=== PATIENT | female | born 1940 | race Caucasian/White ===

== ENCOUNTER 2018-01-22 03:04 | Emergency (ER) | payer OTHER ==
[2018-01-22] MEDS ORDERED: KETOROLAC 30 MG/ML INJ ONE (03:42)
[2018-01-22] MEDS ORDERED: METOCLOPRAMIDE 10 MG/2mL INJ ONE (03:42)
[2018-01-22] MEDS ORDERED: NA CHLORIDE 0.9% 500 ML ONE (03:42)
--- NOTE | 2018-01-22 04:22 | EDPHYS ---
Physician Documentation [facility] Name: Igor Greco Age: 77 yrs Sex: Female : 1940 Arrival Date: 01/22/2018 Time: 03:06 Bed 5 Private MD: ED Physician Dimas Jenkins HPI: 01/22 03:20 This 77 yrs old Female presents to ER via Unassigned with complaints of rn Headache. 03:20 The patient complains of pain to the top of head. The patient describes the headache as rn aching. Onset: The symptoms/episode began/occurred yesterday. Associated signs and symptoms: Pertinent positives: nausea, Pertinent negatives: altered mental status, fever, neck stiffness, vision loss. Severity of symptoms: At its worst the pain was moderate, in the emergency department the pain is unchanged. Headache History: The patient has had previous headaches and this one is similar to previous episodes. The symptoms are alleviated by nothing. the symptoms are aggravated by nothing. The patient has experienced similar episodes in the past. Reports frequent headaches for years, used to come in frequently but not since "new ER", reports 1 day of headache, similar to previous headaches, no medication at home, came in not because it was worse than normal, just didn't go away. . Historical: - Allergies: 03:31 Biaxin; rr5 03:34 Morphine (Vomiting); lp1 - Home Meds: 03:31 clonazepam 1 mg Oral tab 1 tab 3 times per day [Active]; docusate sodium 100 mg Oral rr5 tab 2 tabs once daily [Active]; pravastatin 20 mg Oral tab 1 tab once daily [Active]; trazodone 50 mg Oral tab 2 tabs daily [Active]; Myrbetriq 25 mg Oral Tb24 1 tab once daily [Active]; fluoxetine 20 mg Oral cap 2 caps once daily [Active]; - PMHx: 03:31 Depression; Migraines; macular degeneration; rr5 - PSHx: 03:31 tonsilectomy; sinus surgery; Bladder suspension; right hip surgery; rr5 - Immunization history:: Adult Immunizations up to date, Flu vaccine is up to date. - Social history:: Smoking status: Patient/guardian denies using tobacco, Patient/guardian denies using alcohol, street drugs. - Family history:: not pertinent. - Ebola Screening: : Patient negative for fever greater than or equal to 101.5 degrees Fahrenheit, and additional compatible Ebola Virus Disease symptoms Patient denies exposure to infectious person Patient denies travel to an Ebola-affected area in the 21 days before illness onset. - Hospitalizations: : No recent hospitalization is reported. ROS: 03:20 Constitutional: Negative for fever, chills, and weight loss, Eyes: Negative for injury, rn pain, redness, and discharge, Neck: Negative for injury, pain, and swelling, Cardiovascular: Negative for chest pain, palpitations, and edema, Respiratory: Negative for shortness of breath, cough, wheezing, and pleuritic chest pain, Abdomen/GI: Negative for abdominal pain, vomiting, diarrhea, and constipation, MS/Extremity: Negative for injury and deformity, Skin: Negative for injury, rash, and discoloration, Neuro: Negative for weakness, numbness, tingling, and seizure. Exam: 03:20 Constitutional: This is a well developed, well nourished patient who is awake, alert, rn and in no acute distress. Walked to room without assistance Head/Face: Normocephalic, atraumatic. Eyes: Pupils equal round and reactive to light, extra-ocular motions intact. Lids and lashes normal. Conjunctiva and sclera are non-icteric and not injected. Cornea within normal limits. Periorbital areas with no swelling, redness, or edema. Neck: Supple, full range of motion without nuchal rigidity, or vertebral point tenderness. No Meningismus. Skin: Warm, dry with normal turgor. Normal color with no rashes, no lesions, and no evidence of cellulitis. MS/ Extremity: Pulses equal, no cyanosis. Neurovascular intact. Full, normal range of motion. Equal circumference. Neuro: Awake and alert, GCS 15, oriented to person, place, time, and situation. Cranial nerves II-XII grossly intact. Motor strength 5/5 in all extremities. Sensory grossly intact. Cerebellar exam normal. Normal gait. Vital Signs: 03:20 BP 153 / 98; Pulse 93; Resp 18; Pulse Ox 97% on R/A; Weight 50.8 kg; Height 5 ft. 5 in. rr5 (165.10 cm); Pain 7/10; 04:18 BP 146 / 81; Pulse 79; Resp 17; Pulse Ox 98% on R/A; rr5 04:28 BP 134 / 88; Pulse 79; Resp 18; Pulse Ox 98% on R/A; rr5 03:20 Body Mass Index 18.64 (50.80 kg, 165.10 cm) rr5 [place] Coma Score: 04:20 Eye Response: spontaneous(4). Verbal Response: oriented(5). Motor Response: obeys rn commands(6). Total: 15. MDM: 03:08 Patient medically screened. rn 04:20 Differential diagnosis: migraine, tension headache, vasomotor headache. Data reviewed: rn vital signs, nurses notes, and as a result, I will discharge patient. Counseling: I had a detailed discussion with the patient and/or guardian regarding: the historical points, exam findings, and any diagnostic results supporting the discharge/admit diagnosis, the need for outpatient follow up, to return to the emergency department if symptoms worsen or persist or if there are any questions or concerns that arise at home. Response to treatment: the patient's symptoms have markedly improved after treatment, the patient's condition has returned to base line, and as a result, I will discharge patient. Special discussion: I discussed with the patient/guardian in detail that at this point there is no indication for admission to the hospital. It is understood, however, that if the symptoms persist or worsen the patient needs to return immediately for re-evaluation. 04:20 ED course: Pain resolved, sleeping, to drive her home, is thankful. . rn 01/22 03:20 Order name: IV Start; Complete Time: 03:29 rn Administered Medications: 03:35 Drug: Reglan 10 mg Route: IVP; Site: right forearm; rr5 04:30 Follow up: Response: No adverse reaction; Marked relief of symptoms rr5 03:39 Drug: TORadol 30 mg Route: IVP; Site: right forearm; rr5 04:30 Follow up: Response: Marked relief of symptoms rr5 03:42 Drug: NS 0.9% 500 ml Route: IV; Rate: bolus; Site: right forearm; rr5 04:30 Follow up: Response: No adverse reaction; IV Status: Completed infusion; IV Intake: rr5 500ml Disposition: 01/22/18 04:21 Discharged to Home. Impression: Headache. - Condition is Stable. - Discharge Instructions: General Headache Without Cause. - Medication Reconciliation Form, Thank You Letter, Antibiotic Education, Prescription Opioid Use form. - Follow up: Private Physician; When: As needed; Reason: Recheck today's complaints, Re-evaluation by your physician. - Problem is new. - Symptoms have improved. Signatures: Dimas Jenkins MD MD rn Pena, Laura RN RN lp1 Ga Michael RN RN rr5 Corrections: (The following items were deleted from the chart) 04:32 04:21 01/22/2018 04:21 Discharged to Home. Impression: Headache. Condition is Stable. rr5 Forms are Medication Reconciliation Form, Thank You Letter, Antibiotic Education, Prescription Opioid Use. Follow up: Private Physician; When: As needed; Reason: Recheck today's complaints, Re-evaluation by your physician. Problem is new. Symptoms have improved. rn
--- NOTE | 2018-01-22 04:22 | ER ---
Nurse's Notes [facility] Name: Igor Greco Age: 77 yrs Sex: Female : 1940 Arrival Date: 01/22/2018 Time: 03:06 Bed 5 Private MD: Diagnosis: Headache Presentation: 01/22 03:20 Presenting complaint: Patient states: pain at frontal area radiates to right temporal rr5 area. aching pain score of 7/10. took excedrin and ibuprofen tablet unrelieved from pain. vomited 1x as claimed. denies numbness, slurring of speech. 03:20 Method Of Arrival: Ambulatory rr5 03:20 Transition of care: patient was not received from another setting of care. Onset of rr5 symptoms was January 21, 2018. Risk Assessment: Do you want to hurt yourself or someone else? Patient reports no desire to harm self or others. Initial Sepsis Screen: Does the patient meet any 2 criteria? No. Patient's initial sepsis screen is negative. Does the patient have a suspected source of infection? No. Patient's initial sepsis screen is negative. Care prior to arrival: None. Activity prior to arrival: None. 03:20 Acuity: TROY 3 rr5 Triage Assessment: 03:20 Headache History: The patient has had previous headaches and this one is different than rr5 previous episodes. 03:20 General: Appears in no apparent distress. comfortable, Behavior is calm, cooperative, rr5 appropriate for age, Reports head ache. Pain: Complains of pain in top of head Pain radiates to right temporal area Pain currently is 7 out of 10 on a pain scale. Quality of pain is described as aching, Pain began gradually, Is continuous, Also complains of nausea, sleeplessness, Current management is with toradol and reglan. EENT: No signs and/or symptoms were reported regarding the EENT system. 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 Full function Speech is normal, Facial symmetry appears normal. Cardiovascular: Capillary refill < 3 seconds Patient's skin is warm and dry. Respiratory: Airway is patent Respiratory effort is even, unlabored, Respiratory pattern is regular, symmetrical. GI: Reports nausea, vomiting. : No signs and/or symptoms were reported regarding the genitourinary system. Derm: No signs and/or symptoms reported regarding the dermatologic system. Musculoskeletal: No signs and/or symptoms reported regarding the musculoskeletal system. Historical: - Allergies: 03:31 Biaxin; rr5 03:34 Morphine (Vomiting); lp1 - Home Meds: 03:31 clonazepam 1 mg Oral tab 1 tab 3 times per day [Active]; docusate sodium 100 mg Oral rr5 tab 2 tabs once daily [Active]; pravastatin 20 mg Oral tab 1 tab once daily [Active]; trazodone 50 mg Oral tab 2 tabs daily [Active]; Myrbetriq 25 mg Oral Tb24 1 tab once daily [Active]; fluoxetine 20 mg Oral cap 2 caps once daily [Active]; - PMHx: 03:31 Depression; Migraines; macular degeneration; rr5 - PSHx: 03:31 tonsilectomy; sinus surgery; Bladder suspension; right hip surgery; rr5 - Immunization history:: Adult Immunizations up to date, Flu vaccine is up to date. - Social history:: Smoking status: Patient/guardian denies using tobacco, Patient/guardian denies using alcohol, street drugs. - Family history:: not pertinent. - Ebola Screening: : Patient negative for fever greater than or equal to 101.5 degrees Fahrenheit, and additional compatible Ebola Virus Disease symptoms Patient denies exposure to infectious person Patient denies travel to an Ebola-affected area in the 21 days before illness onset. - Hospitalizations: : No recent hospitalization is reported. Screenin:52 Abuse screen: Denies threats or abuse. Denies injuries from another. Nutritional rr5 screening: No deficits noted. Tuberculosis screening: No symptoms or risk factors identified. Fall Risk IV access (20 points). Total Paul Fall Scale indicates No Risk (0-24 pts). Assessment: 03:49 General: Appears in no apparent distress. comfortable, Behavior is calm, cooperative. rr5 Pain: Complains of pain in top of head Pain radiates to right temporalarea Pain currently is 7 out of 10 on a pain scale. Quality of pain is described as aching, Pain began gradually, Is continuous. Neuro: Level of Consciousness is awake, alert, Oriented to person, place, time, situation, Appropriate for age. Cardiovascular: Capillary refill < 3 seconds Patient's skin is warm and dry. Respiratory: Airway is patent Respiratory effort is even, unlabored, Respiratory pattern is regular, symmetrical. GI: No signs and/or symptoms were reported involving the gastrointestinal system. GI: Reports nausea, vomiting. : No signs and/or symptoms were reported regarding the genitourinary system. : No signs and/or symptoms were reported regarding the genitourinary system. EENT: No signs and/or symptoms were reported regarding the EENT system. Derm: No signs and/or symptoms reported regarding the dermatologic system. Musculoskeletal: No signs and/or symptoms reported regarding the musculoskeletal system. 04:19 Reassessment: Patient appears in no apparent distress at this time. asleep comfortably rr5 on bed. Patient states symptoms have improved. 04:29 Reassessment: Patient appears in no apparent distress at this time. reexamined by dr. sonia jenkins. no complaints made. explained discharge instruction. Vital Signs: 03:20 BP 153 / 98; Pulse 93; Resp 18; Pulse Ox 97% on R/A; Weight 50.8 kg; Height 5 ft. 5 in. rr5 (165.10 cm); Pain 7/10; 04:18 BP 146 / 81; Pulse 79; Resp 17; Pulse Ox 98% on R/A; rr5 04:28 BP 134 / 88; Pulse 79; Resp 18; Pulse Ox 98% on R/A; rr5 03:20 Body Mass Index 18.64 (50.80 kg, 165.10 cm) rr5 [place] Coma Score: 04:20 Eye Response: spontaneous(4). Verbal Response: oriented(5). Motor Response: obeys rn commands(6). Total: 15. ED Course: 03:06 Patient arrived in ED. ag3 03:08 Dimas Jenkins MD is Attending Physician. rn 03:20 Arm band placed on left wrist. rr5 03:21 Ga Michael, JENNIFER is Primary Nurse. rr5 03:25 Inserted saline lock: 22 gauge in right wrist, using aseptic technique. ds4 03:27 Triage completed. rr5 03:52 No provider procedures requiring assistance completed. rr5 03:52 Patient has correct armband on for positive identification. Bed in low position. Call rr5 light in reach. Side rails up X 1. 04:30 IV discontinued, intact, bleeding controlled, No redness/swelling at site. Pressure rr5 dressing applied. Administered Medications: 03:35 Drug: Reglan 10 mg Route: IVP; Site: right forearm; rr5 04:30 Follow up: Response: No adverse reaction; Marked relief of symptoms rr5 03:39 Drug: TORadol 30 mg Route: IVP; Site: right forearm; rr5 04:30 Follow up: Response: Marked relief of symptoms rr5 03:42 Drug: NS 0.9% 500 ml Route: IV; Rate: bolus; Site: right forearm; rr5 04:30 Follow up: Response: No adverse reaction; IV Status: Completed infusion; IV Intake: rr5 500ml Intake: 04:30 IV: 500ml; Total: 500ml. rr5 Outcome: 04:21 Discharge ordered by . rn 04:30 Discharged to home ambulatory. rr5 04:30 Condition: stable 04:30 Discharge instructions given to patient, Instructed on discharge instructions, follow up and referral plans. Demonstrated understanding of instructions, follow-up care. 04:32 Patient left the ED. rr5 Signatures: Dimas Jenkins MD MD rn Pena, Laura RN RN lp1 Justin Bolden ds4 Audrey Herring ag3 Ga Michael, RN RN rr5 Corrections: (The following items were deleted from the chart) 04:32 04:29 Reassessment: Patient appears in no apparent distress at this time. reexamined by rr5 dr. jenkins. no complaints made. explained discharge instruction and prescription. rr5
[2018-01-22 04:38] VITALS: O2SAT 98
[2018-01-22 04:39] VITALS: BP 134/88
== END 2018-01-22 04:32 | disposition home or self-care (01) ==
LOC: ER 03:04
DX: R51 Headache (principal); F32.9 Major depressive disorder, single episode, unspecified; Z79.899 Other long term (current) drug therapy
CPT/HCPCS: 96361; 96374; 96375; 99283; J2765

== ENCOUNTER 2018-06-18 16:35 | Emergency (ER) | payer OTHER ==
--- OUTSIDE RECORDS SUMMARY | 2018-06-18 16:38 | XMS REPORT ---
:1940 [facility] Address [address] [place] [address] Dr. Delgado. [address] [place] [id number] Care Team Providers Name Role Phone Unavailable Unavailable Unavailable Problems This patient has no known problems. Allergies, Adverse Reactions, Alerts This patient has no known allergies or adverse reactions. Medications This patient has no known medications.
[2018-06-18] MEDS ORDERED: LORAZEPAM 1 MG TABLET ONE (18:09)
--- NOTE | 2018-06-18 18:27 | ER ---
Nurse's Notes [facility] Name: Igor Greco Age: 78 yrs Sex: Female : 1940 Arrival Date: 06/18/2018 Time: 16:38 Bed 7 Private MD: Landry Trotter F Diagnosis: Anxiety disorder, unspecified Presentation: 06/18 16:56 Presenting complaint: Patient states: "My new psychiatrist is trying to wean me off my hb clonazepam and i am feeling like I am having a panic attack.". Transition of care: patient was not received from another setting of care. Onset of symptoms was June 18, 2018. Risk Assessment: Do you want to hurt yourself or someone else? Patient reports no desire to harm self or others. Care prior to arrival: None. 16:56 Method Of Arrival: Ambulatory hb 16:56 Acuity: TROY 3 hb 18:24 Initial Sepsis Screen: Does the patient meet any 2 criteria? No. Patient's initial ph sepsis screen is negative. Does the patient have a suspected source of infection? No. Patient's initial sepsis screen is negative. Historical: - Allergies: 16:57 Biaxin; hb 16:57 Morphine (Vomiting); hb - Home Meds: 16:57 clonazepam 1 mg Oral tab 1 tab 3 times per day [Active]; docusate sodium 100 mg Oral hb tab 2 tabs once daily [Active]; fluoxetine 20 mg Oral cap 2 caps once daily [Active]; Myrbetriq 25 mg Oral Tb24 1 tab once daily [Active]; pravastatin 20 mg Oral tab 1 tab once daily [Active]; trazodone 50 mg Oral tab 2 tabs daily [Active]; - PMHx: 16:57 Depression; macular degeneration; Migraines; hb - PSHx: 16:57 tonsilectomy; sinus surgery; Bladder suspension; right hip surgery; hb - Immunization history:: Adult Immunizations up to date. - Social history:: Smoking status: Patient/guardian denies using tobacco. - Ebola Screening: : No symptoms or risks identified at this time. Screenin:24 Abuse screen: Denies threats or abuse. Denies injuries from another. Nutritional ph screening: No deficits noted. Tuberculosis screening: No symptoms or risk factors identified. Fall Risk None identified. Assessment: 17:30 General: Appears in no apparent distress. comfortable, slender, well groomed, Behavior ph is calm, cooperative, appropriate for age, Reports "feeling anxious". Pain: Denies pain. Neuro: Level of Consciousness is awake, alert, obeys commands, Oriented to person, place, time, situation. Cardiovascular: Capillary refill < 3 seconds in bilateral fingers Patient's skin is warm and dry. Respiratory: Airway is patent Respiratory effort is even, unlabored, Respiratory pattern is regular, symmetrical. GI: No signs and/or symptoms were reported involving the gastrointestinal system. Derm: Skin is intact, is healthy with good turgor, Skin is pink, warm \\T\\ dry. Musculoskeletal: Circulation, motion, and sensation intact. Range of motion: intact in all extremities. 18:44 Reassessment: Patient appears in no apparent distress at this time. Patient and/or ph family updated on plan of care and expected duration. Pain level reassessed. Patient is alert, oriented x 3, equal unlabored respirations, skin warm/dry/pink. Pt reports that anxiety has decreased after PO medication, pt d/c home w/ prescription. Vital Signs: 16:55 BP 128 / 91; Pulse 92; Resp 16; Temp 98.2; Pulse Ox 98% on R/A; Pain 0/10; hb 18:46 BP 117 / 87; Pulse 87; Resp 18; Temp 97.8; Pulse Ox 99% on R/A; ph ED Course: 16:38 Patient arrived in ED. mr 16:38 Landry Trotter MD is Private Physician. mr 16:56 Triage completed. hb 16:56 Arm band placed on. hb 17:07 Juan Carlos Cuellar NP is PHCP. pm1 17:07 Sudarshan Alfaro MD is Attending Physician. pm1 17:30 Michelle Lai, RN is Primary Nurse. ph 18:24 Patient has correct armband on for positive identification. Bed in low position. Call ph light in reach. Side rails up X 1. Pulse ox on. NIBP on. Pillow given. 18:25 Patient did not have IV access during this emergency room visit. ph 18:26 No provider procedures requiring assistance completed. ph Administered Medications: 18:00 Drug: Ativan 1 mg Route: PO; ph 18:43 Follow up: Response: No adverse reaction; Anxiety decreased ph Outcome: 18:27 Discharge ordered by . pm1 18:48 Discharged to home ambulatory, with family. ph 18:48 Condition: good 18:48 Discharge instructions given to patient, Instructed on discharge instructions, follow up and referral plans. medication usage, Demonstrated understanding of instructions, follow-up care, medications, Prescriptions given X 1. 18:49 Patient left the ED. ph Signatures: Kaci Tristan mr Michelle Lai RN RN ph Juan Carlos Cuellar NP [employer]ANT ATTENDANT pm1 Deanna Hankins RN RN hb
--- NOTE | 2018-06-18 18:27 | EDPHYS ---
Physician Documentation [facility] Name: Igor Greco Age: 78 yrs Sex: Female : 1940 Arrival Date: 06/18/2018 Time: 16:38 Bed 7 Private MD: Landry Trotter F ED Physician Sudarshan Alfaro HPI: 06/18 17:29 This 78 yrs old Female presents to ER via Ambulatory with complaints of pm1 Anxiety. 17:29 The patient presents to the emergency department with anxiety. Onset: The pm1 symptoms/episode began/occurred 1 month(s) ago. Past psychiatric history: Prior diagnosis: Anxiety and depression, Psychiatric medications include: hydroxyzine and clonazepam, Primary psychiatric physician: Dr. Campbell. Associated signs and symptoms: Pertinent positives; anxiety, Pertinent negatives: abdominal pain, chest pain, fever, headache, homicidal ideation, shortness of breath, suicide ideation. Severity of symptoms: in the emergency department the symptoms are worse Pain is currently a 0 / 10. Patient changed psychiatrist recently and the new psychiatrist believes that she is on too much medications. She wanted to wean the patient off her clonazepam. For the past month the patient has been feeling anxious since her doctor made that decision. Patient has bee recently diagnosed with macular degeneration so that might be contributing to her anxiety. The patient contacted her psychiatrist yesterday and she was instructed to take hydroxyzine. The medication worked last night but it did not help this AM. Historical: - Allergies: 16:57 Biaxin; hb 16:57 Morphine (Vomiting); hb - Home Meds: 16:57 clonazepam 1 mg Oral tab 1 tab 3 times per day [Active]; docusate sodium 100 mg Oral hb tab 2 tabs once daily [Active]; fluoxetine 20 mg Oral cap 2 caps once daily [Active]; Myrbetriq 25 mg Oral Tb24 1 tab once daily [Active]; pravastatin 20 mg Oral tab 1 tab once daily [Active]; trazodone 50 mg Oral tab 2 tabs daily [Active]; - PMHx: 16:57 Depression; macular degeneration; Migraines; hb - PSHx: 16:57 tonsilectomy; sinus surgery; Bladder suspension; right hip surgery; hb - Immunization history:: Adult Immunizations up to date. - Social history:: Smoking status: Patient/guardian denies using tobacco. - Ebola Screening: : No symptoms or risks identified at this time. ROS: 17:29 Constitutional: Negative for fever, chills, and weight loss, Eyes: Negative for injury, pm1 pain, redness, and discharge, ENT: Negative for injury, pain, and discharge, Neck: Negative for injury, pain, and swelling, Cardiovascular: Negative for chest pain, palpitations, and edema, Respiratory: Negative for shortness of breath, cough, wheezing, and pleuritic chest pain, Abdomen/GI: Negative for abdominal pain, nausea, vomiting, diarrhea, and constipation, Back: Negative for injury and pain, : Negative for injury, bleeding, discharge, and swelling, MS/Extremity: Negative for injury and deformity, Skin: Negative for injury, rash, and discoloration, Neuro: Negative for headache, weakness, numbness, tingling, and seizure. 17:29 Psych: Positive for anxiety, Negative for depression, auditory hallucinations, visual hallucinations, homicidal ideation, suicide gesture, suicidal ideation. Exam: 17:29 Constitutional: This is a well developed, well nourished patient who is awake, alert, pm1 and in no acute distress. Head/Face: Normocephalic, atraumatic. Eyes: Pupils equal round and reactive to light, extra-ocular motions intact. Lids and lashes normal. Conjunctiva and sclera are non-icteric and not injected. Cornea within normal limits. Periorbital areas with no swelling, redness, or edema. ENT: Nares patent. No nasal discharge, no septal abnormalities noted. Tympanic membranes are normal and external auditory canals are clear. Oropharynx with no redness, swelling, or masses, exudates, or evidence of obstruction, uvula midline. Mucous membranes moist. Neck: Trachea midline, no thyromegaly or masses palpated, and no cervical lymphadenopathy. Supple, full range of motion without nuchal rigidity, or vertebral point tenderness. No Meningismus. Chest/axilla: Normal chest wall appearance and motion. Nontender with no deformity. No lesions are appreciated. Cardiovascular: Regular rate and rhythm with a normal S1 and S2. No gallops, murmurs, or rubs. Normal PMI, no JVD. No pulse deficits. Respiratory: Lungs have equal breath sounds bilaterally, clear to auscultation and percussion. No rales, rhonchi or wheezes noted. No increased work of breathing, no retractions or nasal flaring. Abdomen/GI: Soft, non-tender, with normal bowel sounds. No distension or tympany. No guarding or rebound. No evidence of tenderness throughout. Back: No spinal tenderness. No costovertebral tenderness. Full range of motion. Skin: Warm, dry with normal turgor. Normal color with no rashes, no lesions, and no evidence of cellulitis. MS/ Extremity: Pulses equal, no cyanosis. Neurovascular intact. Full, normal range of motion. 17:29 Neuro: Orientation: is normal, Motor: is normal, moves all fours, Sensation: is normal, no obvious gross deficits, Gait: is steady, at a normal pace, without difficulty. Vital Signs: 16:55 BP 128 / 91; Pulse 92; Resp 16; Temp 98.2; Pulse Ox 98% on R/A; Pain 0/10; hb 18:46 BP 117 / 87; Pulse 87; Resp 18; Temp 97.8; Pulse Ox 99% on R/A; ph MDM: 17:29 Patient medically screened. pm1 17:29 Refusal of service: The patient/guardian displays adequate decision making capability pm1 and despite a detailed discussion of alternatives, benefits, risks, and consequences refuses: all lab tests, all X-rays, ECG and urinalysis. Patient does not want a cardiac work up because she has been feeling the same exact way for the past 1 month since her psychiatrist has decided to wean her off clonazepam. Patient just wants some medication here for the anxiety and a prescription. 18:24 Data reviewed: vital signs. Data interpreted: Pulse oximetry: on room air is 98 %. pm1 Interpretation: normal. Counseling: I had a detailed discussion with the patient and/or guardian regarding: the historical points, exam findings, and any diagnostic results supporting the discharge/admit diagnosis, the need for outpatient follow up, for definitive care, a psychiatrist, to return to the emergency department if symptoms worsen or persist or if there are any questions or concerns that arise at home, patient is feeling better and requested to go home now. Administered Medications: 18:00 Drug: Ativan 1 mg Route: PO; ph 18:43 Follow up: Response: No adverse reaction; Anxiety decreased ph Disposition: 06/18/18 18:27 Discharged to Home. Impression: Anxiety disorder, unspecified. - Condition is Stable. - Discharge Instructions: Panic Attacks, Generalized Anxiety Disorder. - Prescriptions for Ativan 0.5 mg Oral Tablet - take 1 tablet by ORAL route every 8 hours As needed; 10 tablet. - Medication Reconciliation Form, Thank You Letter, Antibiotic Education, Prescription Opioid Use form. - Follow up: Emergency Department; When: As needed; Reason: Worsening of condition. Follow up: Private Physician; When: 2 - 3 days; Reason: Recheck today's complaints, Continuance of care, Re-evaluation by your physician. - Problem is new. - Symptoms have improved. Addendum: 06/20/2018 07:11 Co-signature as Attending Physician, Sudarshan Alfaro MD I agree with the assessment and k dr plan of care. Signatures: Sudarshan Alfaro MD MD [facility] Michelle Lai RN RN Juan Carlos Cuellar, [facility] pm1 Deanna Hankins RN RN Corrections: (The following items were deleted from the chart) 06/18 18:49 18:27 06/18/2018 18:27 Discharged to Home. Impression: Anxiety disorder, unspecified. ph Condition is Stable. Forms are Medication Reconciliation Form, Thank You Letter, Antibiotic Education, Prescription Opioid Use. Follow up: Emergency Department; When: As needed; Reason: Worsening of condition. Follow up: Private Physician; When: 2 - 3 days; Reason: Recheck today's complaints, Continuance of care, Re-evaluation by your physician. Problem is new. Symptoms have improved. pm1
[2018-06-18 18:58] VITALS: BP 117/87; TEMP 97.8; O2SAT 99
== END 2018-06-18 18:49 | disposition home or self-care (01) ==
LOC: ER 16:35
DX: F41.9 Anxiety disorder, unspecified (principal); F32.9 Major depressive disorder, single episode, unspecified
CPT/HCPCS: 99283

== ENCOUNTER 2018-06-21 19:04 | Emergency (ER) | payer OTHER ==
--- OUTSIDE RECORDS SUMMARY | 2018-06-21 19:06 | XMS REPORT ---
:1940 [facility] Address [address] [place] [address] [place] [id number] Care Team Providers Name Role Phone Unavailable Unavailable Unavailable Problems This patient has no known problems. Allergies, Adverse Reactions, Alerts This patient has no known allergies or adverse reactions. Medications This patient has no known medications.
[2018-06-21] MEDS ORDERED: DIAZEPAM 5 MG TABLET ONE (20:24)
[2018-06-21 20:47] LABS: Absolute Lymphocytes (CBC) 1.4 K/uL (0.7-4.9); Absolute Monocytes 0.5 K/uL (0.1-1.3); Absolute Neutrophil 5.1 K/uL (1.8-8.0); Basophils % 0.7 % (0-1.3); Hematocrit 37.5 % (36.0-45.0); Lymphocytes % 19.4 % (15.3-44.8); MPV 7.9 fL (7.6-11.3); Monocytes % 6.6 % (3.3-12.3); RBC Red Blood Cell Count 4.64 M/uL (3.86-4.86)
[2018-06-21 20:53] LABS: Albumin 3.6 g/dL (3.4-5.0); Bilirubin Direct 0.1 mg/dL (0-0.2); Bilirubin Total 0.4 mg/dL (0.2-1.0); Potassium 3.2 mmol/L (3.5-5.1); Protein, Total 6.7 g/dL (6.4-8.2)
--- NOTE | 2018-06-21 21:17 | ER ---
Nurse's Notes [facility] Name: Igor Greco Age: 78 yrs Sex: Female : 1940 Arrival Date: 06/21/2018 Time: 19:06 Bed 13 Private MD: Diagnosis: Anxiety disorder, unspecified Presentation: 06/21 19:19 Presenting complaint: Patient states: urinary retention and nausea X1. pt stated she is ak1 having "panic attacks". Transition of care: patient was not received from another setting of care. Onset of symptoms was June 21, 2018. Risk Assessment: Do you want to hurt yourself or someone else? Patient reports no desire to harm self or others. Care prior to arrival: None. 19:19 Method Of Arrival: Ambulatory ak1 19:19 Acuity: TROY 3 ak1 19:22 Note pt seen 06/18/18 for same s/s. ak1 20:24 Initial Sepsis Screen: Does the patient meet any 2 criteria? No. Patient's initial tl2 sepsis screen is negative. Does the patient have a suspected source of infection? No. Patient's initial sepsis screen is negative. Historical: - Allergies: 19:22 Morphine (Vomiting); ak1 19:22 Biaxin; ak1 - Home Meds: 19:22 clonazepam 0.5 mg oral tab 1 tab [Active]; fluoxetine 20 mg Oral cap 2 caps once daily ak1 [Active]; trazodone 50 mg Oral tab 2 tabs daily [Active]; pravastatin 20 mg Oral tab 1 tab once daily [Active]; docusate sodium 100 mg Oral tab 2 tabs once daily [Active]; Myrbetriq 25 mg Oral Tb24 1 tab once daily [Active]; hydroxyzine HCl 25 mg Oral tab 1 tab 3 times per day [Active]; Amitiza 8 mcg oral cap 1 cap 2 times per day [Active]; alendronate 70 mg oral tab 1 tab once wkly [Active]; - PMHx: 19:22 Depression; macular degeneration; Migraines; Anxiety; ak1 - PSHx: 19:22 tonsilectomy; sinus surgery; Bladder suspension; right hip surgery; ak1 - Immunization history:: Adult Immunizations unknown. - Social history:: Smoking status: Patient/guardian denies using tobacco. - Ebola Screening: : No symptoms or risks identified at this time. - Family history:: not pertinent. - Hospitalizations: : No recent hospitalization is reported. Screenin:23 Abuse screen: Denies threats or abuse. Nutritional screening: No deficits noted. tl2 Tuberculosis screening: No symptoms or risk factors identified. Fall Risk None identified. Assessment: 19:30 General: Appears in no apparent distress. comfortable, Behavior is cooperative, tl2 appropriate for age, anxious. Pain: Complains of pain in xyphoid area. Neuro: Level of Consciousness is awake, alert, obeys commands, Oriented to person, place, time, situation. Cardiovascular: Denies chest pain. Respiratory: Airway is patent Respiratory effort is even, unlabored, Respiratory pattern is regular, symmetrical. GI: Reports nausea. : Reports urinary retention. Derm: Skin is pink, warm \\T\\ dry. 20:30 Reassessment: pt has ambulated to restroom to urinate several times. Denies pain. tl2 21:50 Reassessment: Patient appears in no apparent distress at this time. Patient and/or tl2 family updated on plan of care and expected duration. Pain level reassessed. Patient is alert, oriented x 3, equal unlabored respirations, skin warm/dry/pink. will discharge after fluids are completed. 22:37 Reassessment: Patient appears in no apparent distress at this time. Patient and/or tl2 family updated on plan of care and expected duration. Pain level reassessed. Patient is alert, oriented x 3, equal unlabored respirations, skin warm/dry/pink. pt verbalized understanding of discharge instructions and need for follow up. Vital Signs: 19:22 BP 122 / 85; Pulse 100; Resp 18; Temp 98.1(TE); Pulse Ox 95% on R/A; Weight 52.16 kg ak1 (R); Height 5 ft. 4 in. (162.56 cm) (R); Pain 0/10; 20:24 BP 117 / 69; Pulse 88; Resp 18; Pulse Ox 98% on R/A; tl2 21:53 BP 118 / 69; Pulse 88; Resp 18; Temp 98.7(O); Pulse Ox 98% ; tl2 19:22 Body Mass Index 19.74 (52.16 kg, 162.56 cm) ak1 ED Course: 19:06 Patient arrived in ED. as 19:19 Triage completed. ak1 19:22 Arm band placed on Patient placed in an exam room, on a stretcher, Patient notified of ak1 wait time. 19:32 Dimas Jenkins MD is Attending Physician. rn 20:22 Elma Vazquez RN is Primary Nurse. tl2 20:23 Patient has correct armband on for positive identification. Bed in low position. Call tl2 light in reach. Side rails up X2. Adult w/ patient. 20:23 Inserted saline lock: 22 gauge in right forearm, using aseptic technique. Blood tl2 collected. 22:37 No provider procedures requiring assistance completed. IV discontinued, intact, tl2 bleeding controlled, No redness/swelling at site. Pressure dressing applied. Administered Medications: 20:23 Drug: Valium 5 mg Route: PO; tl2 22:41 Follow up: Response: No adverse reaction; Anxiety decreased tl2 21:51 Drug: Potassium Chloride 40 mEq Route: PO; tl2 22:42 Follow up: Response: No adverse reaction tl2 21:51 Drug: NS 0.9% 500 ml Route: IV; Rate: bolus; Site: right forearm; tl2 22:42 Follow up: IV Status: Completed infusion; IV Intake: 500ml tl2 Intake: 22:42 IV: 500ml; Total: 500ml. tl2 Outcome: 21:16 Discharge ordered by . rn 22:37 Discharged to home ambulatory, with family. tl2 22:37 Condition: stable 22:37 Discharge instructions given to patient, family, Instructed on discharge instructions, follow up and referral plans. Demonstrated understanding of instructions, follow-up care. 22:42 Patient left the ED. tl2 Signatures: Sherrie Burris Roman, MD MD rn Krenek, Amber, RN RN ak1 Elma Vazquez RN RN tl2
--- NOTE | 2018-06-21 21:17 | EDPHYS ---
Physician Documentation [facility] Name: Igor Greco Age: 78 yrs Sex: Female : 1940 Arrival Date: 06/21/2018 Time: 19:06 Bed 13 Private MD: ED Physician Dimas Jenkins HPI: 06/21 20:14 This 78 yrs old Female presents to ER via Ambulatory with complaints of rn anxiety. 20:14 The patient presents to the emergency department with anxiety. Onset: The rn symptoms/episode began/occurred at an unknown time. Severity of symptoms: At their worst the symptoms were moderate in the emergency department the symptoms have improved. The patient has experienced similar episodes in the past. Reports seen here 2 days ago for identical problem, told was anxiety, saw her psychiatrist yesterday, plan is to wean her clonazepam, she has been feeling anxious and stressed with panic attacks for months, is just trying to make sure there is no medical problem. No fever/chest pain/sob/abd pain. + nausea during panic attacks. . Historical: - Allergies: 19:22 Morphine (Vomiting); ak1 19:22 Biaxin; ak1 - Home Meds: 19:22 clonazepam 0.5 mg oral tab 1 tab [Active]; fluoxetine 20 mg Oral cap 2 caps once daily ak1 [Active]; trazodone 50 mg Oral tab 2 tabs daily [Active]; pravastatin 20 mg Oral tab 1 tab once daily [Active]; docusate sodium 100 mg Oral tab 2 tabs once daily [Active]; Myrbetriq 25 mg Oral Tb24 1 tab once daily [Active]; hydroxyzine HCl 25 mg Oral tab 1 tab 3 times per day [Active]; Amitiza 8 mcg oral cap 1 cap 2 times per day [Active]; alendronate 70 mg oral tab 1 tab once wkly [Active]; - PMHx: 19:22 Depression; macular degeneration; Migraines; Anxiety; ak1 - PSHx: 19:22 tonsilectomy; sinus surgery; Bladder suspension; right hip surgery; ak1 - Immunization history:: Adult Immunizations unknown. - Social history:: Smoking status: Patient/guardian denies using tobacco. - Ebola Screening: : No symptoms or risks identified at this time. - Family history:: not pertinent. - Hospitalizations: : No recent hospitalization is reported. ROS: 20:14 Constitutional: Negative for fever, chills, and weight loss, Eyes: Negative for injury, rn pain, redness, and discharge, Neck: Negative for injury, pain, and swelling, Cardiovascular: Negative for chest pain, palpitations, and edema, Respiratory: Negative for shortness of breath, cough, wheezing, and pleuritic chest pain, Abdomen/GI: + nausea Back: Negative for injury and pain, : Negative for injury, bleeding, discharge, and swelling, MS/Extremity: + generalized muscle aches. Skin: Negative for injury, rash, and discoloration, Neuro: + generalized weakness Exam: 20:14 Constitutional: This is a well developed, well nourished patient who is awake, alert, rn and in no acute distress. Laying with legs crossed, appears anxious Head/Face: Normocephalic, atraumatic. Eyes: Pupils equal round and reactive to light, extra-ocular motions intact. Lids and lashes normal. Conjunctiva and sclera are non-icteric and not injected. Cornea within normal limits. Periorbital areas with no swelling, redness, or edema. ENT: dry MM Neck: Trachea midline, no thyromegaly or masses palpated, and no cervical lymphadenopathy. Supple, full range of motion without nuchal rigidity, or vertebral point tenderness. No Meningismus. Cardiovascular: Regular rate and rhythm. No pulse deficits. Respiratory: No increased work of breathing, no retractions or nasal flaring. Abdomen/GI: soft, non-tender MS/ Extremity: Pulses equal, no cyanosis. Neurovascular intact. Full, normal range of motion. Equal circumference. Neuro: Awake and alert, GCS 15, oriented to person, place, time, and situation. Cranial nerves II-XII grossly intact. Motor strength 5/5 in all extremities. Sensory grossly intact. Cerebellar exam normal. Vital Signs: 19:22 BP 122 / 85; Pulse 100; Resp 18; Temp 98.1(TE); Pulse Ox 95% on R/A; Weight 52.16 kg ak1 (R); Height 5 ft. 4 in. (162.56 cm) (R); Pain 0/10; 20:24 BP 117 / 69; Pulse 88; Resp 18; Pulse Ox 98% on R/A; tl2 21:53 BP 118 / 69; Pulse 88; Resp 18; Temp 98.7(O); Pulse Ox 98% ; tl2 19:22 Body Mass Index 19.74 (52.16 kg, 162.56 cm) ak1 MDM: 19:32 Patient medically screened. rn 21:15 Differential diagnosis: anxiety. Data reviewed: vital signs, nurses notes, lab test rn result(s), EKG, and as a result, I will discharge patient. Counseling: I had a detailed discussion with the patient and/or guardian regarding: the historical points, exam findings, and any diagnostic results supporting the discharge/admit diagnosis, lab results, the need for outpatient follow up, to return to the emergency department if symptoms worsen or persist or if there are any questions or concerns that arise at home. Response to treatment: the patient's symptoms have mildly improved after treatment, and as a result, I will discharge patient. Special discussion: I discussed with the patient/guardian in detail that at this point there is no indication for admission to the hospital. It is understood, however, that if the symptoms persist or worsen the patient needs to return immediately for re-evaluation. ED course: Pt with plan from psychiatrist to wean klonopin, will not change her prescription, will dc home with psychiatrist f/u. . 06/21 19:45 Order name: Basic Metabolic Panel; Complete Time: 21: rn 06/21 19:45 Order name: CBC with Diff; Complete Time: : rn 06/21 19:45 Order name: Hepatic Function; Complete Time: : rn 06/21 19:45 Order name: Lipase; Complete Time: 21: rn 06/21 19:45 Order name: Urine Dipstick-Ancillary (obtain specimen); Complete Time: 20:00 rn 06/21 19:45 Order name: IV Saline Lock; Complete Time: : rn 06/21 19:45 Order name: Labs collected and sent; Complete Time: 20: rn 06/21 19:45 Order name: EKG; Complete Time: 19:46 rn 06/21 19:45 Order name: EKG - Nurse/Tech; Complete Time: 20:00 rn Administered Medications: 20:23 Drug: Valium 5 mg Route: PO; tl2 22:41 Follow up: Response: No adverse reaction; Anxiety decreased tl2 21:51 Drug: Potassium Chloride 40 mEq Route: PO; tl2 22:42 Follow up: Response: No adverse reaction tl2 21:51 Drug: NS 0.9% 500 ml Route: IV; Rate: bolus; Site: right forearm; tl2 22:42 Follow up: IV Status: Completed infusion; IV Intake: 500ml tl2 Disposition: 06/21/18 21:16 Discharged to Home. Impression: Anxiety disorder, unspecified. - Condition is Stable. - Discharge Instructions: Panic Attacks, Generalized Anxiety Disorder. - Medication Reconciliation Form, Thank You Letter, Antibiotic Education, Prescription Opioid Use form. - Follow up: Private Physician; When: As needed; Reason: Recheck today's complaints, Re-evaluation by your physician. - Problem is an ongoing problem. - Symptoms have improved. Signatures: Dispatcher [employer] EDMS Dimas Jenkins MD MD rn Krenek, Amber RN RN ak1 Elma Vazquez RN RN tl2 Corrections: (The following items were deleted from the chart) 22:42 21:16 06/21/2018 21:16 Discharged to Home. Impression: Anxiety disorder, unspecified. tl2 Condition is Stable. Forms are Medication Reconciliation Form, Thank You Letter, Antibiotic Education, Prescription Opioid Use. Follow up: Private Physician; When: As needed; Reason: Recheck today's complaints, Re-evaluation by your physician. Problem is an ongoing problem. Symptoms have improved. rn
[2018-06-21] MEDS ORDERED: POTASSIUM CL SA 10 MEQ TAB PO ONE (21:52)
[2018-06-21] MEDS ORDERED: NA CHLORIDE 0.9% 500 ML ONE (21:52)
[2018-06-21 23:13] VITALS: O2SAT 98
[2018-06-21 23:15] VITALS: BP 118/69; TEMP 98.7
--- NOTE | 2018-06-22 12:09 | EKG ---
Test Date: 2018-06-21 Test Time: 20:08:13 Crime Scene Examiner: TALHA MEASUREMENT RESULTS: Intervals: Rate: 86 WV: 126 QRSD: 84 QT: 392 QTc: 469 Barnett: P: 66 WV: 126 QRS: -17 T: 41 INTERPRETIVE STATEMENTS: Sinus rhythm with premature atrial complexes Possible Left atrial enlargement Incomplete right bundle branch block Nonspecific ST and T wave abnormality Abnormal ECG Compared to ECG 01/21/2016 12:33:00 Atrial premature complex(es) now present Incomplete right bundle branch block now present ST (T wave) deviation now present Electronically Signed On 06-22-18 12:08:50 CDT by Alvaro Zhu
== END 2018-06-21 22:42 | disposition home or self-care (01) ==
LOC: ER 19:04
DX: F41.9 Anxiety disorder, unspecified (principal); F32.9 Major depressive disorder, single episode, unspecified; Z88.5 Allergy status to narcotic agent; Z88.6 Allergy status to analgesic agent
CPT/HCPCS: 36415; 80048; 80076; 83690; 85025; 93005; 96360; 99283

== ENCOUNTER 2018-07-21 14:16 | Emergency (ER) | payer OTHER ==
--- OUTSIDE RECORDS SUMMARY | 2018-07-21 14:23 | XMS REPORT ---
:1940 [facility] Address [address] [place] [address] Dr. Delgado[address] [place] [id number] Care Team Providers Name Role Phone Unavailable Unavailable Unavailable Problems This patient has no known problems. Allergies, Adverse Reactions, Alerts This patient has no known allergies or adverse reactions. Medications This patient has no known medications.
[2018-07-21] MEDS ORDERED: DIAZEPAM 5 MG TABLET ONE (15:42)
--- NOTE | 2018-07-21 16:27 | EDPHYS ---
Physician Documentation [facility] Name: Igor Greco Age: 78 yrs Sex: Female : 1940 Arrival Date: 07/21/2018 Time: 14:18 Bed 12 Private MD: Landry Trotter F ED Physician Sudarshan Alfaro HPI: 07/21 15:25 This 78 yrs old Female presents to ER via Ambulatory with complaints of pm1 Anxiety. 15:25 The patient presents to the emergency department with anxiety, over her macular pm1 degeneration. Onset: The symptoms/episode began/occurred 2 month(s) ago. Past psychiatric history: Prior diagnosis: Anxiety, Psychiatric medications include: Clonazepam, ran out last . Associated signs and symptoms: Pertinent positives; panic attacks and hyperventilation over the past two months, Pertinent negatives: abdominal pain, chest pain, chills, fever, nausea, shortness of breath, vomiting. Severity of symptoms: in the emergency department the symptoms are unchanged. The patient has experienced similar episodes in the past, multiple times. The patient has not recently seen a physician, has an appointment scheduled, In July with psychiatrist. Historical: - Allergies: 14:24 Biaxin; tw2 14:24 Morphine (Vomiting); tw2 14:24 Clarithromycin; tw2 - Home Meds: 14:24 docusate sodium 100 mg Oral tab 2 tabs once daily [Active]; trazodone 50 mg Oral tab 2 tw2 tabs daily [Active]; pravastatin 20 mg Oral tab 1 tab once daily [Active]; Myrbetriq 25 mg Oral Tb24 1 tab once daily [Active]; hydroxyzine HCl 25 mg Oral tab 1 tab 3 times per day [Active]; fluoxetine 20 mg Oral cap 2 caps once daily [Active]; clonazepam 0.5 mg Oral tab 1 tab [Active]; Amitiza 8 mcg Oral cap 1 cap 2 times per day [Active]; alendronate 70 mg Oral tab 1 tab once wkly [Active]; - PMHx: 14:24 Depression; Migraines; macular degeneration; Anxiety; tw2 - PSHx: 14:24 sinus surgery; right hip surgery; tonsilectomy; Bladder suspension; tw2 - Immunization history:: Adult Immunizations. - Social history:: Smoking status: . - Ebola Screening: : Patient denies travel to an Ebola-affected area in the 21 days before illness onset. ROS: 15:25 Constitutional: Negative for fever, chills, and weight loss, Eyes: Negative for injury, pm1 pain, redness, and discharge, ENT: Negative for injury, pain, and discharge, Neck: Negative for injury, pain, and swelling, Cardiovascular: Negative for chest pain, palpitations, and edema, Respiratory: Negative for shortness of breath, cough, wheezing, and pleuritic chest pain, Abdomen/GI: Negative for abdominal pain, nausea, vomiting, diarrhea, and constipation, Back: Negative for injury and pain, : Negative for injury, bleeding, discharge, and swelling, MS/Extremity: Negative for injury and deformity, Skin: Negative for injury, rash, and discoloration, Neuro: Negative for headache, weakness, numbness, tingling, and seizure. 15:25 Psych: Positive for anxiety, Negative for depression, auditory hallucinations, visual hallucinations, homicidal ideation, suicide gesture, suicidal ideation. Exam: 15:25 Constitutional: This is a well developed, well nourished patient who is awake, alert, pm1 and in no acute distress. Head/Face: Normocephalic, atraumatic. Eyes: Pupils equal round and reactive to light, extra-ocular motions intact. Lids and lashes normal. Conjunctiva and sclera are non-icteric and not injected. Cornea within normal limits. Periorbital areas with no swelling, redness, or edema. ENT: Nares patent. No nasal discharge, no septal abnormalities noted. Tympanic membranes are normal and external auditory canals are clear. Oropharynx with no redness, swelling, or masses, exudates, or evidence of obstruction, uvula midline. Mucous membranes moist. Neck: Trachea midline, no thyromegaly or masses palpated, and no cervical lymphadenopathy. Supple, full range of motion without nuchal rigidity, or vertebral point tenderness. No Meningismus. Chest/axilla: Normal chest wall appearance and motion. Nontender with no deformity. No lesions are appreciated. Cardiovascular: Regular rate and rhythm with a normal S1 and S2. No gallops, murmurs, or rubs. Normal PMI, no JVD. No pulse deficits. Respiratory: Lungs have equal breath sounds bilaterally, clear to auscultation and percussion. No rales, rhonchi or wheezes noted. No increased work of breathing, no retractions or nasal flaring. Abdomen/GI: Soft, non-tender, with normal bowel sounds. No distension or tympany. No guarding or rebound. No evidence of tenderness throughout. Back: No spinal tenderness. No costovertebral tenderness. Full range of motion. Skin: Warm, dry with normal turgor. Normal color with no rashes, no lesions, and no evidence of cellulitis. MS/ Extremity: Pulses equal, no cyanosis. Neurovascular intact. Full, normal range of motion. 15:25 Neuro: Orientation: is normal, Motor: is normal, moves all fours, Sensation: is normal, no obvious gross deficits. Vital Signs: 14:22 BP 157 / 86; Pulse 82; Resp 17; Temp 97.5(TE); Pulse Ox 98% on R/A; Weight 52.16 kg tw2 (R); Height 5 ft. 5 in. (165.10 cm); Pain 0/10; 16:21 BP 145 / 77; Pulse 72; Resp 17; Pulse Ox 99% on R/A; tw2 14:22 Body Mass Index 19.14 (52.16 kg, 165.10 cm) tw2 MDM: 15:21 Patient medically screened. pm1 15:25 Data reviewed: vital signs. Data interpreted: Pulse oximetry: on room air is 98 %. pm1 Interpretation: normal. 16:25 Counseling: I had a detailed discussion with the patient and/or guardian regarding: the pm1 historical points, exam findings, and any diagnostic results supporting the discharge/admit diagnosis, the need for outpatient follow up, to return to the emergency department if symptoms worsen or persist or if there are any questions or concerns that arise at home. 17:11 ED course: Contacted by pharmacy and informed that the patient had clonazepam filled on pm1 the 06/26/2018. Patient supposed to take it BID but has been taking it TID due to anxiety and she ran out earlier than expected. I told the pharmacist that it is fine to fill the Valium to provide the patient anxiety medications until she follows up with her psychiatrist . Administered Medications: 15:29 Drug: Valium 5 mg Route: PO; tw2 16:20 Follow up: Response: No adverse reaction; Marked relief of symptoms tw2 Disposition: 07/22 08:58 Co-signature as Attending Physician, Sudarshan Alfaro MD I agree with the assessment and kdr plan of care. Disposition: 07/21/18 16:25 Discharged to Home. Impression: Anxiety disorder, unspecified. - Condition is Stable. - Discharge Instructions: Panic Attacks, Generalized Anxiety Disorder. - Prescriptions for Valium 2 mg Oral Tablet - take 1 tablet by ORAL route every 8 hours As needed; 20 tablet. - Medication Reconciliation Form, Thank You Letter, Antibiotic Education, Prescription Opioid Use form. - Follow up: Emergency Department; When: As needed; Reason: Worsening of condition. Follow up: Private Physician; When: 2 - 3 days; Reason: Recheck today's complaints, Continuance of care, Re-evaluation by your physician. - Problem is new. - Symptoms have improved. Signatures: Sudarshan Alfaro MD MD [facility] Alejandra Prince RN RN ss Juan Carlos Cuellar, LABELS MOLDER LABELS MOLDER pm1 Rajni Portillo RN RN tw2 Corrections: (The following items were deleted from the chart) 07/21 16:35 16:25 07/21/2018 16:25 Discharged to Home. Impression: Anxiety disorder, unspecified. ss Condition is Stable. Forms are Medication Reconciliation Form, Thank You Letter, Antibiotic Education, Prescription Opioid Use. Follow up: Emergency Department; When: As needed; Reason: Worsening of condition. Follow up: Private Physician; When: 2 - 3 days; Reason: Recheck today's complaints, Continuance of care, Re-evaluation by your physician. Problem is new. Symptoms have improved. pm1
--- NOTE | 2018-07-21 16:27 | ER ---
Nurse's Notes [facility] Name: Igor Greco Age: 78 yrs Sex: Female : 1940 Arrival Date: 07/21/2018 Time: 14:18 Bed 12 Private MD: Landry Trotter F Diagnosis: Anxiety disorder, unspecified Presentation: 07/21 14:20 Presenting complaint: Patient states: i am having a panic attack, i have been having tw2 anxiety and panic attacks for about 2 months, i have a psychologies, she gave me clonazepam and i am out of it, it helps but only lasts a little bit. Transition of care: patient was not received from another setting of care. Onset of symptoms was July 21, 2018. Risk Assessment: Do you want to hurt yourself or someone else? Patient reports no desire to harm self or others. Initial Sepsis Screen: Does the patient meet any 2 criteria? No. Patient's initial sepsis screen is negative. Does the patient have a suspected source of infection? No. Patient's initial sepsis screen is negative. Note I have an appt with psychiatrist on August 02. Care prior to arrival: None. 14:20 Method Of Arrival: Ambulatory tw2 14:20 Acuity: TROY 3 tw2 Triage Assessment: 14:22 General: Appears in no apparent distress. slender, well groomed, Behavior is anxious. tw2 Pain: Denies pain. Historical: - Allergies: 14:24 Biaxin; tw2 14:24 Morphine (Vomiting); tw2 14:24 Clarithromycin; tw2 - Home Meds: 14:24 docusate sodium 100 mg Oral tab 2 tabs once daily [Active]; trazodone 50 mg Oral tab 2 tw2 tabs daily [Active]; pravastatin 20 mg Oral tab 1 tab once daily [Active]; Myrbetriq 25 mg Oral Tb24 1 tab once daily [Active]; hydroxyzine HCl 25 mg Oral tab 1 tab 3 times per day [Active]; fluoxetine 20 mg Oral cap 2 caps once daily [Active]; clonazepam 0.5 mg Oral tab 1 tab [Active]; Amitiza 8 mcg Oral cap 1 cap 2 times per day [Active]; alendronate 70 mg Oral tab 1 tab once wkly [Active]; - PMHx: 14:24 Depression; Migraines; macular degeneration; Anxiety; tw2 - PSHx: 14:24 sinus surgery; right hip surgery; tonsilectomy; Bladder suspension; tw2 - Immunization history:: Adult Immunizations. - Social history:: Smoking status: . - Ebola Screening: : Patient denies travel to an Ebola-affected area in the 21 days before illness onset. Screenin:30 Abuse screen: Denies threats or abuse. Nutritional screening: No deficits noted. tw2 Tuberculosis screening: No symptoms or risk factors identified. Fall Risk Secondary diagnosis (15 points) impaired mobility. Assessment: 15:29 General: Appears slender, well groomed, Behavior is anxious, pt reports is tw2 outside waiting on her. Cardiovascular: Denies chest pain, shortness of breath. Respiratory: Airway is patent Respiratory effort is even, unlabored, Respiratory pattern is regular, symmetrical. 16:21 Reassessment: Patient appears in no apparent distress at this time. Patient and/or tw2 family updated on plan of care and expected duration. Pain level reassessed. Patient is alert, oriented x 3, equal unlabored respirations, skin warm/dry/pink. Patient states feeling better. Patient states symptoms have improved. 16:35 Reassessment: Patient appears in no apparent distress at this time. Patient and/or ss family updated on plan of care and expected duration. Pain level reassessed. Patient is alert, oriented x 3, equal unlabored respirations, skin warm/dry/pink. Patient denies pain at this time. Patient states feeling better. Patient states symptoms have improved. Vital Signs: 14:22 BP 157 / 86; Pulse 82; Resp 17; Temp 97.5(TE); Pulse Ox 98% on R/A; Weight 52.16 kg tw2 (R); Height 5 ft. 5 in. (165.10 cm); Pain 0/10; 16:21 BP 145 / 77; Pulse 72; Resp 17; Pulse Ox 99% on R/A; tw2 14:22 Body Mass Index 19.14 (52.16 kg, 165.10 cm) tw2 ED Course: 14:18 Patient arrived in ED. mr 14:19 Landry Trotter MD is Private Physician. mr 14:22 Triage completed. tw2 14:22 Arm band placed on. tw2 14:54 Bed in low position. Call light in reach. tw2 15:21 Juan Carlos Cuellar NP is PHCP. pm1 15:21 Sudarshan Alfaro MD is Attending Physician. pm1 15:29 Rajni Portillo RN is Primary Nurse. tw2 16:35 No provider procedures requiring assistance completed. Patient did not have IV access ss during this emergency room visit. Administered Medications: 15:29 Drug: Valium 5 mg Route: PO; tw2 16:20 Follow up: Response: No adverse reaction; Marked relief of symptoms tw2 Outcome: 16:25 Discharge ordered by . pm1 16:35 Discharged to home ambulatory. ss 16:35 Condition: improved 16:35 Discharge instructions given to patient, Instructed on discharge instructions, follow up and referral plans. medication usage, Demonstrated understanding of instructions, follow-up care, medications. 16:35 Patient left the ED. ss Signatures: Kaci Tristan mr PrinceAlejandra RN RN Juan Carlos Cuellar NP ARCH SUPPORT MAKER pm1 Rajni Portillo, JENNIFER RN tw2
[2018-07-21 17:40] VITALS: TEMP 97.5
[2018-07-21 17:41] VITALS: BP 145/77; O2SAT 99
== END 2018-07-21 16:35 | disposition home or self-care (01) ==
LOC: ER 14:16
DX: F41.9 Anxiety disorder, unspecified (principal); F32.9 Major depressive disorder, single episode, unspecified; Z88.1 Allergy status to other antibiotic agents; Z88.5 Allergy status to narcotic agent
CPT/HCPCS: 99283

== ENCOUNTER 2018-08-08 09:18 | Emergency (ER) | payer OTHER ==
--- OUTSIDE RECORDS SUMMARY | 2018-08-08 09:21 | XMS REPORT ---
:1940 [facility] Address [address] [place] [address] Dr. Delgado[address] [place] [id number] Care Team Providers Name Role Phone Unavailable Unavailable Unavailable Problems This patient has no known problems. Allergies, Adverse Reactions, Alerts This patient has no known allergies or adverse reactions. Medications This patient has no known medications.
--- NOTE | 2018-08-08 10:53 | RAD REPORT ---
EXAM DESCRIPTION: RAD - Hip Right 2 View - 08/08/2018 10:14 am CLINICAL HISTORY: Right hip pain FINDINGS: Pins affix an old right femoral fracture. The bones are osteoporotic. No acute fracture or dislocation is seen. Soft tissue calcifications unchanged
--- NOTE | 2018-08-08 10:53 | RAD REPORT ---
EXAM DESCRIPTION: RAD - Pelvis - 08/08/2018 10:14 am CLINICAL HISTORY: Right hip pain FINDINGS: Pins affix an old right femoral fracture. The bones are osteoporotic. No acute fracture or dislocation is seen. Soft tissue calcifications unchanged
[2018-08-08] MEDS ORDERED: CODEINE 30MG/APAP 300MG TAB ONE (12:16)
--- NOTE | 2018-08-08 13:03 | ER ---
Nurse's Notes [facility] Name: Igor Greco Age: 78 yrs Sex: Female : 1940 Arrival Date: 08/08/2018 Time: 09:21 Bed 20 Private MD: Diagnosis: Sprain of hip Presentation: 08/08 09:32 Presenting complaint: Patient states: tripped and fell on 1 step going up on sv and landed on her right buttock. c/o right buttock and hip pain. Denies head injury and LOC. Transition of care: patient was not received from another setting of care. Onset of symptoms was August 04, 2018. Risk Assessment: Do you want to hurt yourself or someone else? Patient reports no desire to harm self or others. Initial Sepsis Screen: Does the patient meet any 2 criteria? No. Patient's initial sepsis screen is negative. Does the patient have a suspected source of infection? No. Patient's initial sepsis screen is negative. Care prior to arrival: None. 09:32 Method Of Arrival: Wheelchair sv 09:32 Acuity: TROY 4 sv Triage Assessment: 09:32 General: Appears in no apparent distress. uncomfortable, slender, Behavior is calm, sv cooperative, appropriate for age. Pain: Complains of pain in right gluteus deepa and right hip. Neuro: Level of Consciousness is awake, alert, obeys commands, Oriented to person, place, time, situation, Moves all extremities. Full function Gait is steady. Respiratory: Respiratory effort is even, unlabored, Respiratory pattern is regular, symmetrical. Derm: Skin is pink, warm \T\ dry. Musculoskeletal: Range of motion: intact in all extremities. Historical: - Allergies: 09:35 Biaxin; sv 09:35 Clarithromycin; sv 09:35 Morphine (Vomiting); sv - Home Meds: 09:35 clonazepam 0.5 mg Oral tab 1 tab [Active]; Inderal LA Oral [Active]; sv - PMHx: 09:35 Anxiety; Depression; macular degeneration; Migraines; sv - PSHx: 09:35 sinus surgery; right hip surgery; tonsilectomy; Bladder suspension; sv - Immunization history:: Adult Immunizations up to date. - Social history:: Smoking status: Patient/guardian denies using tobacco. - Ebola Screening: : No symptoms or risks identified at this time. Screenin:35 Abuse screen: Denies threats or abuse. Denies injuries from another. Nutritional sv screening: No deficits noted. Tuberculosis screening: No symptoms or risk factors identified. Fall Risk No fall in past 12 months (0 pts). No secondary diagnosis (0 pts). No IV (0 pts). Ambulatory Aid- None/Bed Rest/Nurse Assist (0 pts). Gait- Normal/Bed Rest/Wheelchair (0 pts) Mental Status- Oriented to own ability (0 pts). Total Paul Fall Scale indicates No Risk (0-24 pts). Assessment: 11:03 Reassessment: Patient appears in no apparent distress at this time. No changes from sv previously documented assessment. Patient and/or family updated on plan of care and expected duration. Pain level reassessed. Patient is alert, oriented x 3, equal unlabored respirations, skin warm/dry/pink. 12:09 Reassessment: Patient appears in no apparent distress at this time. No changes from sv previously documented assessment. Patient and/or family updated on plan of care and expected duration. Pain level reassessed. Patient is alert, oriented x 3, equal unlabored respirations, skin warm/dry/pink. Vital Signs: 09:35 BP 142 / 77; Pulse 64; Resp 18; Temp 97.9; Pulse Ox 99% ; Weight 52.16 kg; Height 5 ft. sv 4 in. (162.56 cm); Pain 0/10; 11:02 BP 120 / 72; Pulse 66; Resp 16; Pulse Ox 99% ; sv 09:35 Body Mass Index 19.74 (52.16 kg, 162.56 cm) sv ED Course: 09:21 Patient arrived in ED. tw3 09:32 Marianne Pérez, RN is Primary Nurse. sv 09:33 Triage completed. sv 09:35 Arm band placed on. sv 09:35 Patient has correct armband on for positive identification. Bed in low position. Call sv light in reach. Pulse ox on. NIBP on. Door closed. Head of bed elevated. 09:36 Awaiting ED provider evaluation. sv 09:43 Vitaly Rodriguez PA is PHCP. jm 09:43 Tim Kearney MD is Attending Physician. jm 09:54 Nurse Practitioner and/or Physician Media/Instructional Designer to see patient. sv 10:00 Awaiting for x-ray. sv 10:10 X-ray completed. Portable x-ray completed in exam room. Patient tolerated procedure sw well. 10:19 Pelvis XRAY In Process Unspecified. EDMS 10:19 Hip Right 2 View XRAY In Process Unspecified. EDMS 11:03 Awaiting radiology results. Awaiting re-evaluation by ER provider. sv 12:10 No provider procedures requiring assistance completed. Patient did not have IV access sv during this emergency room visit. Administered Medications: 12:09 Drug: Tylenol #3 (300 mg-30 mg) 1 tablet Route: PO; sv 12:10 Follow up: Response: Medication administered at discharge. sv Outcome: 12:00 Discharge ordered by . vasyl 12:10 Discharged to home via wheelchair. sv 12:10 Condition: stable 12:10 Discharge instructions given to patient, Instructed on discharge instructions, follow up and referral plans. no drinking with medication, no driving heavy equipment, medication usage, Demonstrated understanding of instructions, follow-up care, medications, Prescriptions given X 1. 12:11 Patient left the ED. sv Signatures: Dispatcher [employer] Marianne Osullivan RN RN Vitaly Cooper PA PA jmm Warren, Shannon sw Wade, Melvi tw3
--- NOTE | 2018-08-08 13:04 | EDPHYS ---
Physician Documentation [facility] Name: Igor Greco Age: 78 yrs Sex: Female : 1940 Arrival Date: 08/08/2018 Time: 09:21 Bed 20 Private MD: ED Physician Tim Kearney HPI: 08/08 09:47 This 78 yrs old Female presents to ER via Wheelchair with complaints of Fall jmm Injury, Leg Pain. 09:47 Details of fall: The patient fell from an upright position, while walking. Onset: The jmm symptoms/episode began/occurred acutely, 4 day(s) ago. Associated injuries: The patient sustained right hip. This is a 78 year old female with a history of anxiety, depression, migraines that presents to the ED with complaints of right hip pain after a fall. Patient states she tripped on a step landing on her right side. Patient mainly complains of right lateral hip pain. The pain does not radiate. Patient denies numbness or incontience. . Historical: - Allergies: 09:35 Biaxin; sv 09:35 Clarithromycin; sv 09:35 Morphine (Vomiting); sv - Home Meds: 09:35 clonazepam 0.5 mg Oral tab 1 tab [Active]; Inderal LA Oral [Active]; sv - PMHx: 09:35 Anxiety; Depression; macular degeneration; Migraines; sv - PSHx: 09:35 sinus surgery; right hip surgery; tonsilectomy; Bladder suspension; sv - Immunization history:: Adult Immunizations up to date. - Social history:: Smoking status: Patient/guardian denies using tobacco. - Ebola Screening: : No symptoms or risks identified at this time. ROS: 09:47 Constitutional: Negative for fever, chills, and weight loss, Cardiovascular: Negative jmm for chest pain, palpitations, and edema, Respiratory: Negative for shortness of breath, cough, wheezing, and pleuritic chest pain. 09:47 MS/extremity: Positive for injury or acute deformity, pain. 09:47 All other systems are negative. Exam: 09:47 Head/Face: atraumatic. Eyes: EOMI, no conjunctival erythema appreciated ENT: Moist jmm Mucus Membranes Neck: Trachea midline, Supple Chest/axilla: Normal chest wall appearance and motion. Cardiovascular: Regular rate and rhythm. No edema appreciated Respiratory: Normal respirations, no respiratory distress appreciated Abdomen/GI: Non distended, soft Back: Normal ROM Skin: General appearance color normal 09:47 Constitutional: The patient appears in no acute distress, alert, awake. 09:47 Musculoskeletal/extremity: ROM: intact in all extremities, FROM appreciated to the right hip, pain is elicited on palpation of the right lateral thigh, compartments are soft, full dorsalis pulse, NVI. 09:47 Skin: Appearance: Color: normal in color. 09:47 Neuro: Orientation: is normal, Mentation: is normal, Memory: is normal. 09:47 Psych: Behavior/mood is pleasant, cooperative. Vital Signs: 09:35 BP 142 / 77; Pulse 64; Resp 18; Temp 97.9; Pulse Ox 99% ; Weight 52.16 kg; Height 5 ft. sv 4 in. (162.56 cm); Pain 0/10; 11:02 BP 120 / 72; Pulse 66; Resp 16; Pulse Ox 99% ; sv 09:35 Body Mass Index 19.74 (52.16 kg, 162.56 cm) sv MDM: 09:47 Patient medically screened. morgan 12:00 Data reviewed: vital signs, nurses notes. Counseling: I had a detailed discussion with vasyl the patient and/or guardian regarding: the historical points, exam findings, and any diagnostic results supporting the discharge/admit diagnosis, lab results, radiology results, the need for outpatient follow up, to return to the emergency department if symptoms worsen or persist or if there are any questions or concerns that arise at home. 12:09 ED course: Xray's are negative. Patient is able to bear weight in the ED. I do not vasyl suspect fracture. patient is advised to follow up with orthopedics for reevaluation. Patient is otherwise given strict return precautions. Patient understood and agrees with the plan of care. . 08/08 09:57 Order name: Pelvis XRAY vasyl 08/08 09:57 Order name: Hip Right 2 View XRAY vasyl Administered Medications: 12:09 Drug: Tylenol #3 (300 mg-30 mg) 1 tablet Route: PO; sv 12:10 Follow up: Response: Medication administered at discharge. sv Disposition: 08/08/18 12:00 Discharged to Home. Impression: Sprain of hip. - Condition is Stable. - Discharge Instructions: Hip Pain. - Prescriptions for Tylenol- Codeine #3 300-30 mg Oral Tablet - take 1 tablet by ORAL route every 6 hours As needed; 12 tablet. - Medication Reconciliation Form, Thank You Letter, Antibiotic Education, Prescription Opioid Use form. - Follow up: Private Physician; When: 2 - 3 days; Reason: Recheck today's complaints, Continuance of care, Re-evaluation by your physician. Signatures: Dispatcher [employer] Marianne Osullivan RN RN sv Anderson, Corey, MD MD cha Mickail, Joel, PA PA jmm Corrections: (The following items were deleted from the chart) 12:11 12:00 08/08/2018 12:00 Discharged to Home. Impression: Sprain of hip. Condition is sv Stable. Forms are Medication Reconciliation Form, Thank You Letter, Antibiotic Education, Prescription Opioid Use. Follow up: Private Physician; When: 2 - 3 days; Reason: Recheck today's complaints, Continuance of care, Re-evaluation by your physician. vasyl
[2018-08-08 18:01] VITALS: TEMP 97.9; O2SAT 99
[2018-08-08 18:02] VITALS: BP 120/72
== END 2018-08-08 12:11 | disposition home or self-care (01) ==
LOC: ER 09:18
DX: S73.101A Unspecified sprain of right hip, initial encounter (principal); F41.8 Other specified anxiety disorders; G43.909 Migraine, unspecified, not intractable, without status migrainosus; W01.0XXA Fall on same level from slipping, tripping and stumbling without subsequent striking against object, initial encounter; Y93.9 Activity, unspecified; Y92.9 Unspecified place or not applicable; Z88.3 Allergy status to other anti-infective agents
CPT/HCPCS: 72170; 99284

== ENCOUNTER 2018-10-05 18:28 | Emergency (ER) | payer OTHER ==
--- OUTSIDE RECORDS SUMMARY | 2018-10-05 18:29 | XMS REPORT ---
:1940 [facility] Address [facility] [place] [address] [place] [id number] Care Team Providers Name Role Phone Unavailable Unavailable Unavailable Problems This patient has no known problems. Allergies, Adverse Reactions, Alerts This patient has no known allergies or adverse reactions. Medications This patient has no known medications.
--- OUTSIDE RECORDS SUMMARY | 2018-10-05 18:29 | XMS REPORT | Clinical Summary ---
:1940 Author Organization [facility] Address [address] [place] [address] Care Team Providers Name Role Phone Pcp, Patient Does Not Have A Primary Care Provider Allergies Active Allergy Reactions Severity Noted Date Comments Clarithromycin Nausea Only Low 08/19/2018 Medications Medication Sig Dispensed Refills Start Date End Date Status diclofenac-misoprostol Take 1 Tab by 0 Active (ARTHROTEC 75) 75-200 mouth 2 (two) mg-mcg per tablet times daily. pravastatin (PRAVACHOL) Take 40 mg by 0 Active 40 mg tablet mouth at bedtime. hydrOXYzine 25 mg Take 1 tablet 30 tablet 1 05/30/2018 Active tabletIndications: by mouth every Moderate episode of 24 recurrent major (twenty-four) depressive disorder hours as needed (for panic attacks. do not take more than one tab per day). FLUoxetine 20 mg Take 2 180 capsule 0 08/02/2018 Active capsuleIndications: capsules by Moderate episode of mouth daily. recurrent major depressive disorder propranolol 10 mg Take 1 tablet 60 tablet 2 08/02/2018 Active tabletIndications: by mouth 2 Moderate episode of (two) times recurrent major daily. depressive disorder traZODONE 50 mg Take 1 tablet 30 tablet 2 08/09/2018 Active tabletIndications: by mouth at Psychophysiological bedtime. insomnia rivastigmine 4.6 mg/24 hr Apply 1 Patch 30 Patch 1 08/19/2018 Active patchIndications: Late to skin daily. onset Alzheimer's disease without behavioral disturbance clonazePAM 0.5 mg Take 1 tablet 90 tablet 0 09/30/2018 Active tabletIndications: by mouth 3 Moderate episode of (three) times recurrent major daily. 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 Encounters Date Type Specialty Care Team Description 08/19/2018 Office Visit Neurology Ricky Brito Late onset Alzheimer's disease without behavioral disturbance (Primary Dx); MD Dl Depressive disorder 08/18/2018 Hospital Encounter Radiology Ricky Brito MD 08/18/2018 Orders Only Doctor Unassigned, [place] 07/18/2018 Office Visit Neurology Ricky Brito Late onset Alzheimer's MD Dl disease without behavioral disturbance (Primary Dx) from Last 3 Months Social History Tobacco Use Types Packs/Day Years Used Date Never Smoker Smokeless Tobacco: Never Used Alcohol Use Drinks/Week oz/Week Comments No Sex Assigned at Date Recorded Not on file Job Start Date Occupation Industry Not on file Not on file Not on file Travel History Travel Start Travel End No recent travel history available. Last Filed Vital Signs Vital Sign Reading Time Taken Comments Blood Pressure 117/61 08/19/2018 2:48 PM CDT Pulse 62 08/19/2018 2:48 PM CDT Temperature 36.6 C (97.8 F) 08/19/2018 2:48 PM CDT Respiratory Rate 18 08/19/2018 2:48 PM CDT Oxygen Saturation - - Inhaled Oxygen Concentration - - Weight 52.2 kg (115 lb) 08/19/2018 2:48 PM CDT Height 162.6 cm (5' 4") 08/19/2018 2:48 PM CDT Body Mass Index 19.74 08/19/2018 2:48 PM CDT Plan of Treatment Date Type Specialty Care Team Description 07/21/2019 Office Visit Neurology Aquiles Sahu, PHD [address] [place] [address] [phone] Health Maintenance Due Date Last Done Comments DTaP,Tdap,and Td Vaccines (1 - Tdap) 1959 Zoster Recombinant Vaccine (SHINGRIX) (1 of 2) 1989 Medicare Wellness Visit 02/15/2004 Osteoporosis Screening 02/15/2004 PNEUMOCOCCAL VACCINES 65+ (1 of 2 - PCV13) 02/15/2004 INFLUENZA VACCINE 10/30/2018 Procedures Procedure Name Priority Date/Time Associated Comments Diagnosis MR BRAIN WO CONTRAST Routine 08/18/2018 4:17 Late onset Results for this PM CDT Alzheimer's disease procedure are in without behavioral the results disturbance section. CONSENT/REFUSAL FOR Routine 08/18/2018 3:30 DIAGNOSIS AND PM CDT TREATMENT ASSIGNMENT OF BENEFITS Routine 08/18/2018 3:29 PM CDT PATIENT QUESTIONNAIRE Routine 08/18/2018 12:01 AM CDT from Last 3 Months Results MR BRAIN WO CONTRAST (08/18/2018 4:17 PM CDT) Specimen Narrative Performed At HISTORY: Dementia. PACS/VR/DOSE TECHNIQUE: Routine MRI of the brain was completed without intravenous contrast injection Examination includes sagittal T1/T2 FLAIR/3-D FSPGR, axial T2 FLAIR, DWI/ADC studies. From the 3-D imaging, subsequently axial and coronal reformations were generated. FINDINGS: Global cerebral atrophy noted with dilated ventricles and peripheral cortical sulci. However, lateral ventricles are slightly more dilated relative to the prominence of cortical sulci which raises concern for hydrocephalus. T2 and FLAIR images showed mild periventricular white matter degeneration. Additional 2 mm to 1 cm size hyperintense white matter lesions are seen in both right and left frontal/parietal/occipital lobes, consistent with degenerative white matter lesions secondary to chronic low-grade ischemia. No abnormal fluid collection in the extra-axial compartment. Normal signal void of intracranial vascular structures is preserved. Posterior fossa structures including internal auditory canals and mastoids appear normal. Pituitary gland, parasellar and suprasellar regions appear normal. Bilateral cataract surgical changes noted, otherwise orbits and retro-orbital region appear normal. 6 mm mucus retention cyst is noted in the roof of the right maxillary sinus near the uncinate process region, otherwise paranasal sinuses are clear. Bilateral inferior turbinate hypertrophy noted. CONCLUSION: 1. Mild to moderate global cerebral atrophy and mild ischemic white matter degenerative changes in both cerebral hemispheres. 2. Ventricles are more dilated relative to the prominence of cortical sulci raising concern for normal pressure hydrocephalus. Procedure Note [facility], Radiant Results Inft User - 08/18/2018 4:30 PM CDT HISTORY: Dementia. TECHNIQUE: Routine MRI of the brain was completed without intravenous contrast injection Examination includes sagittal T1/T2 FLAIR/3-D FSPGR, axial T2 FLAIR, DWI/ADC studies. From the 3-D imaging, subsequently axial and coronal reformations were generated. FINDINGS: Global cerebral atrophy noted with dilated ventricles and peripheral cortical sulci. However, lateral ventricles are slightly more dilated relative to the prominence of cortical sulci which raises concern for hydrocephalus. T2 and FLAIR images showed mild periventricular white matter degeneration. Additional 2 mm to 1 cm size hyperintense white matter lesions are seen in both right and left frontal/parietal/occipital lobes, consistent with degenerative white matter lesions secondary to chronic low-grade ischemia. No abnormal fluid collection in the extra-axial compartment. Normal signal void of intracranial vascular structures is preserved. Posterior fossa structures including internal auditory canals and mastoids appear normal. Pituitary gland, parasellar and suprasellar regions appear normal. Bilateral cataract surgical changes noted, otherwise orbits and retro-orbital region appear normal. 6 mm mucus retention cyst is noted in the roof of the right maxillary sinus near the uncinate process region, otherwise paranasal sinuses are clear. Bilateral inferior turbinate hypertrophy noted. CONCLUSION: 1. Mild to moderate global cerebral atrophy and mild ischemic white matter degenerative changes in both cerebral hemispheres. 2. Ventricles are more dilated relative to the prominence of cortical sulci raising concern for normal pressure hydrocephalus. Performing Organization Address City/State/Zipcode Phone Number PACS/VR/DOSE CONSENT/REFUSAL FOR DIAGNOSIS AND TREATMENT (08/18/2018 3:30 PM CDT) Specimen Performing Organization Address City/State/Zipcode Phone Number HIM ASSIGNMENT OF BENEFITS (08/18/2018 3:29 PM CDT) Specimen Performing Organization Address City/State/Zipcode Phone Number HIM PATIENT QUESTIONNAIRE (08/18/2018 12:01 AM CDT) Specimen Performing Organization Address City/State/Zipcode Phone Number HIM from Last 3 Months Insurance Payer Benefit Plan Subscriber ID Effective Phone Address Type / Group Dates AETNA - AETNA [id number] 2013-[id number] [address] Medicare Adv MANAGED MEDICARE [place]V nt [id number] [place] [address]
--- OUTSIDE RECORDS SUMMARY | 2018-10-05 18:30 | XMS REPORT | Summary of Care ---
:1940 Author Organization [facility] Address [address] [place] [address] Care Team Providers Name Role Phone Pcp, Patient Does Not Have A Primary Care Provider Reason for Visit Reason Comments Vomiting Weaning off Clonazepam Encounter Details Date Type Department Care Team Description 10/05/2018 Nurse Triage [facility] Olena Hyatt RN Vomiting (Weaning off [address] Clonazepam) [place] [phone] Allergies Active Allergy Reactions Severity Noted Date Comments Clarithromycin Nausea Only Low 08/19/2018 documented as of this encounter (statuses as of 10/05/2018) Medications Medication Sig Dispensed Refills Start Date [...] (three) times recurrent major daily. 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 documented as of this encounter Last Filed Vital Signs Not on filedocumented in this encounter Plan of Treatment Date Type Specialty Care Team Description 07/21/2019 Office Visit Neurology Aquiles Sahu, PHD [address] [place] [address] [phone] Health Maintenance Due Date Last Done Comments DTaP,Tdap,and Td Vaccines (1 - Tdap) 1959 Zoster Recombinant Vaccine (SHINGRIX) (1 of 2) 1989 Medicare Wellness Visit 02/15/2004 Osteoporosis Screening 02/15/2004 PNEUMOCOCCAL VACCINES 65+ (1 of 2 - PCV13) 02/15/2004 INFLUENZA VACCINE 10/30/2018 documented as of this encounter Results Not on filedocumented in this encounter Insurance Payer Benefit Plan Subscriber ID Effective Phone Address Type / Group Dates AETNA - AETNA [id number] 2013-e [address] Medicare Adv [place]NAGED MEDICARE ADV nt [id number] [place] [phone] documented as of this encounter
[2018-10-05] MEDS ORDERED: ONDANSETRON 4 MG (ODT) TAB ONE (18:54)
--- NOTE | 2018-10-05 18:55 | ER ---
Nurse's Notes [facility] Name: Igor Greco Age: 78 yrs Sex: Female : 1940 Arrival Date: 10/05/2018 Time: 18:30 Bed 17 Private MD: Diagnosis: Nausea with vomiting, unspecified;Benzodiazepine withdrawal, mild Presentation: 10/05 18:39 Presenting complaint: Patient states: Reports withdrawal symptoms from clonazepam. Last aj dose was yesterday. Reports nausea and vomiting and increased anxiety. Transition of care: patient was not received from another setting of care. Onset of symptoms was October 05, 2018. Risk Assessment: Do you want to hurt yourself or someone else? Patient reports no desire to harm self or others. Initial Sepsis Screen: Does the patient meet any 2 criteria? No. Patient's initial sepsis screen is negative. Does the patient have a suspected source of infection? No. Patient's initial sepsis screen is negative. Care prior to arrival: None. 18:39 Method Of Arrival: Ambulatory aj 18:39 Acuity: TROY 3 aj Triage Assessment: 18:41 General: Appears in no apparent distress. uncomfortable, Behavior is anxious. Pain: aj Denies pain. Neuro: Level of Consciousness is awake, alert, obeys commands, Oriented to person, place, time, situation, Appropriate for age. Respiratory: Airway is patent Respiratory effort is even, unlabored, Respiratory pattern is regular, symmetrical. GI: Reports nausea, vomiting. Derm: Skin is intact, is healthy with good turgor, Skin is pink, warm \T\ dry. normal. Historical: - Allergies: 18:41 Biaxin; aj 18:41 Clarithromycin; aj 18:41 Morphine (Vomiting); aj - Home Meds: 18:41 alendronate 70 mg Oral tab 1 tab once wkly [Active]; Amitiza 8 mcg Oral cap 1 cap 2 aj times per day [Active]; clonazepam 0.5 mg Oral tab 1 tab [Active]; docusate sodium 100 mg Oral tab 2 tabs once daily [Active]; fluoxetine 20 mg Oral cap 2 caps once daily [Active]; hydroxyzine HCl 25 mg Oral tab 1 tab 3 times per day [Active]; Inderal LA Oral [Active]; Myrbetriq 25 mg Oral Tb24 1 tab once daily [Active]; pravastatin 20 mg Oral tab 1 tab once daily [Active]; trazodone 50 mg Oral tab 2 tabs daily [Active]; - PMHx: 18:41 Anxiety; Depression; macular degeneration; Migraines; aj - PSHx: 18:41 sinus surgery; right hip surgery; tonsilectomy; Bladder suspension; aj - Immunization history:: Adult Immunizations up to date. - Social history:: Smoking status: Patient/guardian denies using tobacco. - Ebola Screening: : Patient negative for fever greater than or equal to 101.5 degrees Fahrenheit, and additional compatible Ebola Virus Disease symptoms Patient denies exposure to infectious person Patient denies travel to an Ebola-affected area in the 21 days before illness onset No symptoms or risks identified at this time. - Family history:: not pertinent. - Hospitalizations: : No recent hospitalization is reported. Screenin:52 Abuse screen: Denies threats or abuse. Denies injuries from another. Nutritional hb screening: No deficits noted. Tuberculosis screening: No symptoms or risk factors identified. Fall Risk None identified. Assessment: 18:52 General: Appears in no apparent distress. Behavior is anxious. Pain: Denies pain. hb Neuro: Level of Consciousness is awake, alert, obeys commands, Oriented to person, place, time, situation. Cardiovascular: Capillary refill < 3 seconds Patient's skin is warm and dry. Respiratory: Airway is patent Respiratory effort is even, unlabored, Respiratory pattern is regular, symmetrical. GI: Reports nausea. : No signs and/or symptoms were reported regarding the genitourinary system. EENT: No signs and/or symptoms were reported regarding the EENT system. Derm: Skin is intact, is healthy with good turgor. Musculoskeletal: No signs and/or symptoms reported regarding the musculoskeletal system. Vital Signs: 18:41 BP 183 / 91; Pulse 69; Resp 18; Temp 97.8; Pulse Ox 96% on R/A; Weight 52.16 kg; Height aj 5 ft. 4 in. (162.56 cm); 18:41 Body Mass Index 19.74 (52.16 kg, 162.56 cm) aj ED Course: 18:30 Patient arrived in ED. as 18:40 Triage completed. aj 18:41 Arm band placed on left wrist. Patient placed in an exam room. aj 18:42 Dimas Jenkins MD is Attending Physician. rn 18:51 Deanna Hankins, RN is Primary Nurse. hb 18:52 Patient has correct armband on for positive identification. Bed in low position. hb 19:13 No provider procedures requiring assistance completed. Patient did not have IV access ss during this emergency room visit. Administered Medications: 18:59 Drug: Zofran 4 mg Route: PO; hb 19:14 Follow up: Response: No adverse reaction; Nausea is decreased ss Outcome: 18:54 Discharge ordered by MD. rn 19:13 Discharged to home ambulatory. ss 19:13 Condition: good 19:13 Discharge instructions given to patient, Instructed on discharge instructions, follow up and referral plans. medication usage, Demonstrated understanding of instructions, follow-up care, medications, Prescriptions given X 2. 19:14 Patient left the ED. ss Signatures: Elizabeth Carbone, RN RN Sherrie Starr Roman, MD MD rn Smirch, Shelby, RN RN Deanna Hankins, JENNIFER RN hb
--- NOTE | 2018-10-05 18:55 | EDPHYS ---
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 18:50 The patient presents to the emergency department with nausea, vomiting. Onset: The rn symptoms/episode began/occurred today. Possible causes: withdrawal from medication. The symptoms are aggravated by nothing. The symptoms are alleviated by nothing. Severity of symptoms: At their worst the symptoms were mild in the emergency department the symptoms are unchanged. The patient has experienced similar episodes in the past. Reports ran out of her clonazepam 2 days ago, takes 0.5mg tid, her doctor wouldn't call in more until evaluated, is trying o wean her off but she feels bad without them. Reports panic attack today. No abd pain/chest pain/sob/diarrhea. . Historical: - Allergies: 18:41 Biaxin; aj 18:41 Clarithromycin; aj 18:41 Morphine (Vomiting); aj - Home Meds: 18:41 alendronate 70 mg Oral tab 1 tab once wkly [Active]; Amitiza 8 mcg Oral cap 1 cap 2 aj times per day [Active]; clonazepam 0.5 mg Oral tab 1 tab [Active]; docusate sodium 100 mg Oral tab 2 tabs once daily [Active]; fluoxetine 20 mg Oral cap 2 caps once daily [Active]; hydroxyzine HCl 25 mg Oral tab 1 tab 3 times per day [Active]; Inderal LA Oral [Active]; Myrbetriq 25 mg Oral Tb24 1 tab once daily [Active]; pravastatin 20 mg Oral tab 1 tab once daily [Active]; trazodone 50 mg Oral tab 2 tabs daily [Active]; - PMHx: 18:41 Anxiety; Depression; macular degeneration; Migraines; aj - PSHx: 18:41 sinus surgery; right hip surgery; tonsilectomy; Bladder suspension; aj - Immunization history:: Adult Immunizations up to date. - Social history:: Smoking status: Patient/guardian denies using tobacco. - Ebola Screening: : Patient negative for fever greater than or equal to 101.5 degrees Fahrenheit, and additional compatible Ebola Virus Disease symptoms Patient denies exposure to infectious person Patient denies travel to an Ebola-affected area in the 21 days before illness onset No symptoms or risks identified at this time. - Family history:: not pertinent. - Hospitalizations: : No recent hospitalization is reported. ROS: 18:50 Constitutional: Negative for fever, chills, and weight loss, Eyes: Negative for injury, rn pain, redness, and discharge, Neck: Negative for injury, pain, and swelling, Cardiovascular: Negative for chest pain, palpitations, and edema, Respiratory: Negative for shortness of breath, cough, wheezing, and pleuritic chest pain, Abdomen/GI: + nausea MS/Extremity: Negative for injury and deformity, Skin: Negative for injury, rash, and discoloration, Neuro: Negative for headache, weakness, numbness, tingling, and seizure. Exam: 18:50 Constitutional: This is a well developed, well nourished patient who is awake, alert, rn and in no acute distress. Head/Face: Normocephalic, atraumatic. Eyes: Pupils equal round and reactive to light, extra-ocular motions intact. Lids and lashes normal. Conjunctiva and sclera are non-icteric and not injected. Cornea within normal limits. Periorbital areas with no swelling, redness, or edema. ENT: MMM Neck: Trachea midline, no thyromegaly or masses palpated, and no cervical lymphadenopathy. Supple, full range of motion without nuchal rigidity, or vertebral point tenderness. No Meningismus. Cardiovascular: Regular rate and rhythm. No pulse deficits. Respiratory: Lungs have equal breath sounds bilaterally, clear to auscultation. No increased work of breathing, no retractions or nasal flaring. Abdomen/GI: soft, non-tender MS/ Extremity: Pulses equal, no cyanosis. Neurovascular intact. Full, normal range of motion. Equal circumference. Neuro: Awake and alert, GCS 15, oriented to person, place, time, and situation. Cranial nerves II-XII grossly intact. Motor strength 5/5 in all extremities. Sensory grossly intact. Cerebellar exam normal. Normal gait. Vital Signs: 18:41 BP 183 / 91; Pulse 69; Resp 18; Temp 97.8; Pulse Ox 96% on R/A; Weight 52.16 kg; Height aj 5 ft. 4 in. (162.56 cm); 18:41 Body Mass Index 19.74 (52.16 kg, 162.56 cm) MDM: 18:42 Patient medically screened. rn 18:50 Differential diagnosis: benzo withdrawal, anxiety. Data reviewed: vital signs, nurses rn notes, and as a result, I will discharge patient. Counseling: I had a detailed discussion with the patient and/or guardian regarding: the historical points, exam findings, and any diagnostic results supporting the discharge/admit diagnosis, the need for outpatient follow up, to return to the emergency department if symptoms worsen or persist or if there are any questions or concerns that arise at home. Response to treatment: the patient's symptoms have mildly improved after treatment, and as a result, I will discharge patient. Special discussion: I discussed with the patient/guardian in detail that at this point there is no indication for admission to the hospital. It is understood, however, that if the symptoms persist or worsen the patient needs to return immediately for re-evaluation. Based on the history and exam findings, there is no indication for further emergent testing or inpatient evaluation. I discussed with the patient/guardian the need to see the primary care provider for further evaluation of the symptoms. ED course: Given medication is benzo, will cover with a few doses to help taper meds and recommend pcp f/u. . Administered Medications: 18:59 Drug: Zofran 4 mg Route: PO; hb 19:14 Follow up: Response: No adverse reaction; Nausea is decreased ss Disposition: 10/05/18 18:54 Discharged to Home. Impression: Nausea with vomiting, unspecified, Benzodiazepine withdrawal, mild. - Condition is Stable. - Discharge Instructions: Nausea and Vomiting, Adult, Benzodiazepine Withdrawal. - Prescriptions for Zofran ODT 4 mg Oral tablet,disintegrating - place 1 tablet by TRANSLINGUAL route every 8 hours As needed; 20 tablet. clonazepam 0.5 mg Oral tablet - take 1 tablet by ORAL route 2 times per day After 3 days, decrease to once daily to taper dose; 10 tablet. - Medication Reconciliation Form, Thank You Letter, Antibiotic Education, Prescription Opioid Use form. - Follow up: Private Physician; When: As needed; Reason: Recheck today's complaints, Re-evaluation by your physician. - Problem is an ongoing problem. - Symptoms have improved. Signatures: Elizabeth Carbone RN RN Dimas Stuatr MD MD rn Smirch, Shelby, RN RN ss Baxter, Heather, RN RN Corrections: (The following items were deleted from the chart) 19:14 18:54 10/05/2018 18:54 Discharged to Home. Impression: Nausea with vomiting, ss unspecified; Benzodiazepine withdrawal, mild. Condition is Stable. Forms are Medication Reconciliation Form, Thank You Letter, Antibiotic Education, Prescription Opioid Use. Follow up: Private Physician; When: As needed; Reason: Recheck today's complaints, Re-evaluation by your physician. Problem is an ongoing problem. Symptoms have improved. rn
[2018-10-05 19:19] VITALS: BP 183/91; TEMP 97.8; O2SAT 96
== END 2018-10-05 19:14 | disposition home or self-care (01) ==
LOC: ER 18:28
DX: F19.939 Other psychoactive substance use, unspecified with withdrawal, unspecified (principal); R11.2 Nausea with vomiting, unspecified; F41.9 Anxiety disorder, unspecified; F32.9 Major depressive disorder, single episode, unspecified; Z88.1 Allergy status to other antibiotic agents; Z88.5 Allergy status to narcotic agent
CPT/HCPCS: 99283

== ENCOUNTER 2019-02-13 19:53 | Inpatient (IN) | payer OTHER ==
--- OUTSIDE RECORDS SUMMARY | 2019-02-13 19:56 | XMS REPORT ---
:1940 [facility] Address [address] [place] [address] [place] [address] Care Team Providers Name Role Phone Unavailable Unavailable Unavailable Problems This patient has no known problems. Allergies, Adverse Reactions, Alerts This patient has no known allergies or adverse reactions. Medications This patient has no known medications.
--- OUTSIDE RECORDS SUMMARY | 2019-02-13 19:57 | XMS REPORT | Clinical Summary ---
:1940 Author Organization [facility] Address [address] [place] [address]89 Care Team Providers Name Role Phone Pcp, [...] Active 40 mg tablet mouth at bedtime. rivastigmine 4.6 mg/24 hr Apply 1 Patch 30 Patch 1 08/19/2018 Active patchIndications: Late to skin daily. onset Alzheimer's disease without behavioral disturbance hydrOXYzine 25 mg tablet Take 1 tablet 30 tablet 2 10/25/2018 Active by mouth every 24 (twenty-four) hours as needed (for panic attacks. do not take more than one tab per day). traZODONE 50 mg Take 1 tablet 30 tablet 2 10/25/2018 Active tabletIndications: by mouth at Psychophysiological bedtime. insomnia propranolol 10 mg tablet Take 1 tablet 60 tablet 2 10/30/2018 Active by mouth 2 (two) times daily. FLUoxetine 20 mg capsule Take 3 90 capsule 2 10/30/2018 Active capsules by mouth daily. clonazePAM 0.5 mg tablet Take 1 tablet 90 tablet 2 10/28/2018 Active by mouth 3 (three) times daily. Active Problems Problem Noted Date Depressive disorder 06/09/2013 Overview: ICD10 Diagnosis Term Home Care Specialist Utility Encounters Date Type Specialty Care Team Description 10/05/2018 Nurse Triage Edmar, Olena T, RN Vomiting (Weaning off Clonazepam) 08/19/2018 Office Visit Neurology Ricky Brito Late onset Alzheimer's disease without behavioral disturbance (Primary Dx); MD Dl Depressive disorder 08/18/2018 Hospital Encounter Radiology Ricky Brito MD 08/18/2018 Orders Only Doctor Unassigned, [place] from Last 3 Months Social History Tobacco [...] Sign Reading Time Taken Comments Blood Pressure 111/76 10/25/2018 5:05 PM CDT Pulse 65 10/25/2018 5:05 PM CDT Temperature 36.6 C (97.8 F) 08/19/2018 2:48 PM CDT Respiratory Rate 18 10/25/2018 5:05 PM CDT Oxygen Saturation - - Inhaled Oxygen Concentration - - Weight 51.3 kg (113 lb 3.2 oz) 10/25/2018 5:05 PM CDT Height 162.6 cm (5' 4") 10/25/2018 5:05 PM CDT Body Mass Index 19.43 10/25/2018 5:05 PM CDT Plan of Treatment Date Type Specialty Care Team Description 07/21/2019 Office Visit Neurology Aquiles Sahu, PHD [address] [place] [address] [phone] Health Maintenance Due Date Last Done Comments DTaP,Tdap,and Td Vaccines (1 - Tdap) 1959 Zoster Recombinant Vaccine (SHINGRIX) (1 of 2) 1989 Medicare Wellness Visit 02/15/2004 Osteoporosis Screening 02/15/2004 PNEUMOCOCCAL VACCINES 65+ (1 of 2 - PCV13) 02/15/2004 INFLUENZA VACCINE (#1) 2018 Procedures Procedure Name Priority Date/Time Associated Comments [...] Type / Group Dates AETNA - AETNA [id number] 2013-Prese P O BOX Medicare Adv MANAGED MEDICARE ADV nt [id number] [place] [address]
--- OUTSIDE RECORDS SUMMARY | 2019-02-13 19:57 | XMS REPORT | Clinical Summary ---
:1939 Author Organization [facility] Address [address] [place] [address] 41095 Care Team Providers Name Role Phone Pcp, [...] take more than one tab per day). rivastigmine 4.6 mg/24 hr Apply 1 Patch 30 Patch 1 08/19/2018 Active patchIndications: Late to skin daily. onset Alzheimer's disease without behavioral disturbance clonazePAM 0.5 mg Take 1 tablet 90 tablet 0 09/30/2018 Active tabletIndications: by mouth 3 Moderate episode of (three) times recurrent major daily. depressive disorder PROPRANOLOL 10 mg TAKE 1 TABLET 60 tablet 0 10/30/2018 Active tabletIndications: BY MOUTH TWICE Moderate episode of DAILY recurrent major depressive disorder FLUoxetine 20 mg Take 2 180 capsule 0 10/30/2018 Active capsuleIndications: capsules by Moderate episode of mouth daily. recurrent major depressive disorder traZODONE 50 mg Take 1 tablet 30 tablet 0 10/18/2018 Active tabletIndications: by mouth at Psychophysiological bedtime. insomnia Active Problems Problem Noted Date Depressive disorder 06/09/2013 Overview: ICD10 Diagnosis Term Management Associate Utility Encounters Date Type Specialty Care Team Description 10/05/2018 Nurse Triage Olena Hyatt RN Vomiting (Weaning off Clonazepam) 08/19/2018 Office Visit Neurology Ricky Brito Late onset Alzheimer's disease without behavioral disturbance (Primary Dx); MD Dl Depressive disorder 08/18/2018 Hospital Encounter Radiology Ricky Brito MD 08/18/2018 Orders Only Doctor Unassigned, [place] 07/18/2018 Office Visit Neurology Ricky Brito Late [...] 07/21/2019 Office Visit Neurology Aquiles Sahu, PHD [address] [place] [address] [phone] Health Maintenance Due Date Last Done Comments [...] Type / Group Dates AETNA - AETNA [id number] 2013-Prese P O BOX Medicare Adv MANAGED MEDICARE ADV nt [id number] [place] [address]
--- OUTSIDE RECORDS SUMMARY | 2019-02-13 19:57 | XMS REPORT | Clinical Summary ---
:1939 Author Organization [facility] Address [address] [place] [address] 56868 Care Team Providers Name Role Phone Pcp, [...] of mouth daily. recurrent major depressive disorder Active Problems Problem Noted Date Depressive disorder 06/09/2013 Overview: ICD10 Diagnosis Term Signal Person Utility Encounters Date Type Specialty Care Team Description 10/05/2018 Nurse Triage Olena Hyatt RN Vomiting (Weaning off Clonazepam) 08/19/2018 Office Visit Neurology Ricky Brito Late onset Alzheimer's disease without behavioral disturbance (Primary Dx); MD Dl Depressive disorder 08/18/2018 Hospital Encounter Radiology Ricky Brito MD 08/18/2018 Orders Only Doctor Unassigned, [place] 07/18/2018 Office Visit Neurology Ricky Brito Late [...] 07/21/2019 Office Visit Neurology Aquiles Sahu, PHD [address] [place] [address] [phone] Health Maintenance Due Date Last Done Comments [...] Type / Group Dates AETNA - AETNA [id number] 2013-Pre[place] P O BOX Medicare Adv MANAGED MEDICARE ADV nt [id number] [place] [address]
--- OUTSIDE RECORDS SUMMARY | 2019-02-13 19:57 | XMS REPORT | Clinical Summary ---
:1939 Author Organization [facility] Address [address] [place] [address] Care Team Providers Name Role Phone Pcp, [...] Depressive disorder 06/09/2013 Overview: ICD10 Diagnosis Term Horticultural Services Supervisor Utility Encounters Date Type Specialty Care Team Description 11/29/2018 Orders Only Doctor Unassigned, [place] 10/05/2018 Nurse Triage Olena Hyatt RN Vomiting (Weaning off Clonazepam) from Last 3 Months Social History Tobacco [...] Sign Reading Time Taken Comments Blood Pressure 106/65 11/29/2018 2:10 PM CDT Pulse 64 11/29/2018 2:10 PM CDT Temperature 36.6 C (97.8 F) 08/19/2018 2:48 PM CDT Respiratory Rate 18 11/29/2018 2:10 PM CDT Oxygen Saturation - - Inhaled Oxygen Concentration - - Weight 53.5 kg (118 lb) 11/29/2018 2:10 PM CDT Height 162.6 cm (5' 4") 11/29/2018 2:10 PM CDT Body Mass Index 20.25 11/29/2018 2:10 PM CDT Plan of Treatment Date Type Specialty Care Team Description 07/21/2019 Office Visit Neurology Aquiles Sahu, PHD [address] [place] [address] Health Maintenance Due Date Last Done Comments DTaP,Tdap,and Td Vaccines (1 - Tdap) 1959 Zoster Recombinant Vaccine (SHINGRIX) (1 of 2) 1989 Medicare Wellness Visit 02/15/2004 Osteoporosis Screening 02/15/2004 PNEUMOCOCCAL VACCINES 65+ (1 of 2 - PCV13) 02/15/2004 INFLUENZA VACCINE (#1) 2018 Procedures Procedure Name Priority Date/Time Associated Diagnosis Comments NOTICE OF BILLING Routine 11/29/2018 2:06 PM [facility]ACT[facility] FOR MEDICARE CDT PATIENTS [facility] PATIENT FINANCIAL Routine 11/29/2018 2:05 PM POLICY CDT NO SHOW OR MISSED Routine 11/29/2018 2:04 PM APPOINTMENT POLICY CDT ACKNOWLEDGEMENT from Last 3 Months Results NOTICE OF BILLING [facility] [employer] PATIENTS (11/29/2018 2:06 PM CDT) Specimen Performing Organization Address City/State/Zipcode Phone Number HIM [facility] PATIENT FINANCIAL POLICY (11/29/2018 2:05 PM CDT) Specimen Performing Organization Address City/State/Zipcode Phone Number HIM NO SHOW OR MISSED APPOINTMENT POLICY ACKNOWLEDGEMENT (11/29/2018 2:04 PM CDT) Specimen Performing Organization Address City/State/Zipcode Phone Number HIM from Last 3 Months Insurance Payer Benefit Plan Subscriber ID Effective Phone Address Type / Group Dates AETNA - AETNA [id number] 2013-Prese P O BOX Medicare Adv MANAGED MEDICARE ADV nt [id number] [place] [address]
--- OUTSIDE RECORDS SUMMARY | 2019-02-13 19:57 | XMS REPORT | Clinical Summary ---
:1939 Author Organization [facility] Address [address] [place] [address] Care Team Providers Name Role Phone Pcp, [...] Depressive disorder 06/09/2013 Overview: ICD10 Diagnosis Term Hospice Chaplain Utility Encounters Date Type Specialty Care Team Description 10/05/2018 Nurse Triage [place], Olena T, RN Vomiting (Weaning off Clonazepam) 08/19/2018 Office Visit Neurology Ricky Brito Late onset Alzheimer's disease without behavioral disturbance (Primary Dx); MD Dl Depressive disorder 08/18/2018 Hospital Encounter Radiology Ricky Brito MD 08/18/2018 Orders Only Doctor Unassigned, [place] from Last 3 Months Social History Tobacco [...] 07/21/2019 Office Visit Neurology Aquiles Sahu, PHD [address] [place] [address] [phone] Health Maintenance Due Date Last Done Comments [...] Type / Group Dates AETNA - AETNA [id number] 2013-Prese P O BOX Medicare Adv MANAGED MEDICARE ADV nt [id number] [place] [address]
--- OUTSIDE RECORDS SUMMARY | 2019-02-13 19:57 | XMS REPORT | Clinical Summary ---
:1939 Author Organization [facility] Address [address] [place] [address] Care Team Providers Name Role Phone Pcp, [...] Depressive disorder 06/09/2013 Overview: ICD10 Diagnosis Term Um Specialist Utility Encounters Date Type Specialty Care Team Description 11/29/2018 Orders Only Doctor Unassigned, [place] 10/05/2018 Nurse Triage Olena Hyatt RN Vomiting [...] Office Visit Neurology Aquiles Sahu, PHD [address] [place] [address] Health Maintenance Due Date Last [...] 2:06 PM [facility] [employer] CDT PATIENTS [facility] PATIENT FINANCIAL Routine 11/29/2018 2:05 PM POLICY CDT NO SHOW OR MISSED Routine 11/29/2018 2:04 PM APPOINTMENT POLICY CDT ACKNOWLEDGEMENT from Last 3 Months Results NOTICE OF BILLING [facility] [employer] PATIENTS (11/29/2018 2:06 PM CDT) Specimen Performing Organization Address City/State/Zipcode Phone Number HIM [facility] PATIENT FINANCIAL POLICY (11/29/2018 2:05 PM CDT) Specimen Performing Organization Address City/State/Zipcode Phone Number HIM NO SHOW OR MISSED APPOINTMENT POLICY ACKNOWLEDGEMENT (11/29/2018 2:04 PM CDT) Specimen Performing Organization Address City/State/Zipcode Phone Number HIM from Last 3 Months Insurance Payer Benefit Plan Subscriber ID Effective Phone Address Type / Group Dates AETNA - AETNA [id number] 2013-Prese P O BOX Medicare Adv MANAGED MEDICARE ADV nt [id number] [place] [address]
--- OUTSIDE RECORDS SUMMARY | 2019-02-13 19:57 | XMS REPORT | Clinical Summary ---
:1939 Author Organization [facility] Address [address] [place] [address]442 Care Team Providers Name Role Phone Pcp, [...] Depressive disorder 06/09/2013 Overview: ICD10 Diagnosis Term Spin Table Operator Utility Encounters Date Type Specialty Care Team Description 10/05/2018 Nurse Triage Olena Hyatt RN Vomiting (Weaning off Clonazepam) 08/19/2018 Office Visit Neurology Ricky Brito Late onset Alzheimer's disease without behavioral disturbance (Primary Dx); MD Dl Depressive disorder 08/18/2018 Hospital Encounter Radiology Ricky Brito MD 08/18/2018 Orders Only Doctor Unassigned, [place] 07/18/2018 Office Visit Neurology Ricky Brito Late [...] 07/21/2019 Office Visit Neurology Aquiles Sahu, PHD [address] [place] [address] [phone] Health Maintenance Due Date Last Done Comments [...] Type / Group Dates AETNA - AETNA [id number] 2013-Prese P O BOX Medicare Adv MANAGED MEDICARE ADV nt [id number] [place] [address]
--- OUTSIDE RECORDS SUMMARY | 2019-02-13 19:57 | XMS REPORT | Clinical Summary ---
:1939 Author Organization [facility] Address [address] [place] [address] Care Team Providers Name Role Phone Pcp, [...] Depressive disorder 06/09/2013 Overview: ICD10 Diagnosis Term Solar Installer Utility Encounters Date Type Specialty Care Team Description 11/29/2018 Orders Only Doctor Unassigned, [place] 10/05/2018 Nurse Triage Olena Hyatt RN Vomiting [...] Office Visit Neurology Aquiles Sahu, PHD [address] [place] [address] Health Maintenance Due Date Last [...] 2:06 PM [facility] FOR MEDICARE CDT PATIENTS [facility] PATIENT FINANCIAL Routine 11/29/2018 2:05 PM POLICY CDT NO SHOW OR MISSED Routine 11/29/2018 2:04 PM APPOINTMENT POLICY CDT ACKNOWLEDGEMENT from Last 3 Months Results NOTICE OF BILLING [facility] MEDICARE PATIENTS (11/29/2018 2:06 PM CDT) Specimen Performing Organization Address City/State/Zipcode Phone Number HIM [facility] PATIENT FINANCIAL POLICY (11/29/2018 2:05 PM CDT) Specimen Performing Organization Address City/State/Zipcode Phone Number HIM NO SHOW OR MISSED APPOINTMENT POLICY ACKNOWLEDGEMENT (11/29/2018 2:04 PM CDT) Specimen Performing Organization Address City/State/Zipcode Phone Number HIM from Last 3 Months Insurance Payer Benefit Plan Subscriber ID Effective Phone Address Type / Group Dates AETNA - AETNA [id number] 2013-Prese P O BOX Medicare Adv MANAGED MEDICARE ADV nt [id number] [place] [address]
--- OUTSIDE RECORDS SUMMARY | 2019-02-13 19:57 | XMS REPORT | Clinical Summary ---
:1939 Author Organization [facility] Address [address] [place] [address]694 Care Team Providers Name Role Phone Pcp, [...] Depressive disorder 06/09/2013 Overview: ICD10 Diagnosis Term Block Sorter Utility Encounters Date Type Specialty Care Team Description 10/05/2018 Nurse Triage Olena Hyatt RN Vomiting (Weaning off Clonazepam) 08/19/2018 Office Visit Neurology Ricky Brito Late onset Alzheimer's disease without behavioral disturbance (Primary Dx); MD Dl Depressive disorder 08/18/2018 Hospital Encounter Radiology Ricky Brito MD 08/18/2018 Orders Only Doctor Unassigned, [place] 07/18/2018 Office Visit Neurology Ricky Brito Late [...] 07/21/2019 Office Visit Neurology Aquiles Sahu, PHD [address] [place] [address] [phone] Health Maintenance Due Date Last Done Comments [...] Type / Group Dates AETNA - AETNA [id number] 2013-Prese P O BOX Medicare Adv MANAGED MEDICARE ADV nt [id number] [place] [address]
--- OUTSIDE RECORDS SUMMARY | 2019-02-13 19:58 | XMS REPORT | Clinical Summary ---
:[address] [facility] Address [address] [place] [address] 13609 Care Team Providers Name Role Phone Pcp, [...] Depressive disorder 06/09/2013 Overview: ICD10 Diagnosis Term Metal Sprayer Protective Coating Utility Encounters Date Type Specialty Care Team Description 11/29/2018 Orders Only Doctor Unassigned, [place] from Last 3 Months Social History Tobacco [...] Office Visit Neurology Aquiles Sahu, PHD [address] [place] [address] [phone] Health Maintenance Due Date Last Done Comments DTaP,Tdap,and Td Vaccines (1 - Tdap) 1959 Zoster Recombinant Vaccine (SHINGRIX) (1 of 2) 1989 Medicare Wellness Visit 02/15/2004 Osteoporosis Screening 02/15/2004 PNEUMOCOCCAL VACCINES 65+ (1 of 2 - PCV13) 02/15/2004 INFLUENZA VACCINE (#1) 2018 Procedures Procedure Name Priority Date/Time Associated Diagnosis Comments NOTICE OF BILLING Routine 11/29/2018 2:06 PM [facility]ACT[facility] FOR MEDICARE CDT PATIENTS [facility] PATIENT FINANCIAL Routine 11/29/2018 2:05 PM POLICY CDT NO SHOW OR MISSED Routine 11/29/2018 2:04 PM APPOINTMENT POLICY CDT ACKNOWLEDGEMENT from Last 3 Months Results NOTICE OF BILLING [facility] [employer] [facility] PATIENTS (11/29/2018 2:06 PM CDT) Specimen Performing Organization Address City/State/Zipcode Phone Number HIM [facility] PATIENT FINANCIAL POLICY (11/29/2018 2:05 PM CDT) Specimen Performing Organization Address City/State/Zipcode Phone Number HIM NO SHOW OR MISSED APPOINTMENT POLICY ACKNOWLEDGEMENT (11/29/2018 2:04 PM CDT) Specimen Performing Organization Address City/State/Zipcode Phone Number HIM from Last 3 Months Insurance Payer Benefit Plan Subscriber ID Effective Phone Address Type / Group Dates AETNA - AETNA [id number] 2013-[place] [address] Medicare Adv MANAGED MEDICARE ADV nt [id number] [facility] [place] [address]
--- OUTSIDE RECORDS SUMMARY | 2019-02-13 19:58 | XMS REPORT | Clinical Summary ---
:1939 Author Organization [facility] Address [address] [place] [address] Care Team Providers Name Role Phone Pcp, [...] Active by mouth 2 (two) times daily. clonazePAM 0.5 mg tablet Take 1 tablet 90 tablet 2 10/28/2018 Active by mouth 3 (three) times daily. FLUoxetine 20 mg Take 3 90 capsule 2 01/17/2019 Active capsuleIndications: DARIN capsules by (generalized anxiety mouth daily. disorder) TRAZODONE 50 mg TAKE 1 TABLET 30 tablet 0 01/31/2019 Active tabletIndications: BY MOUTH AT Psychophysiological BEDTIME insomnia Active Problems Problem Noted Date Depressive disorder 06/09/2013 Overview: ICD10 Diagnosis Term Diagnostic Cardiac Sonographer Utility Encounters Date Type Specialty Care Team Description 01/30/2019 Refill Neurology Ricky Brito MD Refill Request 11/29/2018 Orders Only Doctor Unassigned, [place] from Last 3 Months Social History Tobacco [...] 07/21/2019 Office Visit Neurology Aquiles Sahu, PHD [address] [place] [address] [phone] Health Maintenance Due Date Last Done Comments DTaP,Tdap,and Td Vaccines (1 - Tdap) 1959 Zoster Recombinant Vaccine (SHINGRIX) (1 of 2) 1989 Medicare Wellness Visit 02/15/2004 Osteoporosis Screening 02/15/2004 PNEUMOCOCCAL VACCINES 65+ (1 of 2 - PCV13) 02/15/2004 INFLUENZA VACCINE (#1) 2018 Procedures Procedure Name Priority Date/Time Associated Diagnosis Comments NOTICE OF BILLING Routine 11/29/2018 2:06 PM [facility] FOR MEDICARE CDT PATIENTS [facility] PATIENT FINANCIAL Routine 11/29/2018 2:05 PM POLICY CDT NO SHOW OR MISSED Routine 11/29/2018 2:04 PM APPOINTMENT POLICY CDT ACKNOWLEDGEMENT from Last 3 Months Results NOTICE OF BILLING [facility] PATIENTS (11/29/2018 2:06 PM CDT) Specimen Performing Organization Address City/State/Zipcode Phone Number HIM [facility] PATIENT FINANCIAL POLICY (11/29/2018 2:05 PM CDT) Specimen Performing Organization Address City/State/Zipcode Phone Number HIM NO SHOW OR MISSED APPOINTMENT POLICY ACKNOWLEDGEMENT (11/29/2018 2:04 PM CDT) Specimen Performing Organization Address City/State/Zipcode Phone Number HIM from Last 3 Months Insurance Payer Benefit Plan Subscriber ID Effective Phone Address Type / Group Dates AETNA - AETNA [id number] 2013-[place] [address] Medicare Adv MANAGED MEDICARE ADV nt [id number] [place] [address]
--- OUTSIDE RECORDS SUMMARY | 2019-02-13 19:58 | XMS REPORT | Clinical Summary ---
:1939 Author Organization [facility] Address [address] [place] [address]17 Care Team Providers Name Role Phone Pcp, [...] capsules by (generalized anxiety mouth daily. disorder) Active Problems Problem Noted Date Depressive disorder 06/09/2013 Overview: ICD10 Diagnosis Term Forepart [place] Utility Encounters Date Type Specialty Care Team Description 11/29/2018 Orders Only Doctor Unassigned, [place] from Last 3 Months Social History Tobacco [...] Office Visit Neurology Aquiles Sahu, PHD [address] [place] [address] [phone] Health Maintenance Due Date Last Done Comments DTaP,Tdap,and Td Vaccines (1 - Tdap) 1959 Zoster Recombinant Vaccine (SHINGRIX) (1 of 2) 1989 Medicare Wellness Visit 02/15/2004 Osteoporosis Screening 02/15/2004 PNEUMOCOCCAL VACCINES 65+ (1 of 2 - PCV13) 02/15/2004 INFLUENZA VACCINE (#1) 2018 Procedures Procedure Name Priority Date/Time Associated Diagnosis Comments NOTICE OF BILLING Routine 11/29/2018 2:06 PM PRACTICES FOR MEDICARE CDT PATIENTS [facility] PATIENT FINANCIAL Routine 11/29/2018 2:05 PM POLICY CDT NO SHOW OR MISSED Routine 11/29/2018 2:04 PM APPOINTMENT POLICY CDT ACKNOWLEDGEMENT from Last 3 Months Results NOTICE OF BILLING [facility] PATIENTS (11/29/2018 2:06 PM CDT) Specimen Performing Organization Address City/State/Zipcode Phone Number HIM [facility] PATIENT FINANCIAL POLICY (11/29/2018 2:05 PM CDT) Specimen Performing Organization Address City/State/Zipcode Phone Number HIM NO SHOW OR MISSED APPOINTMENT POLICY ACKNOWLEDGEMENT (11/29/2018 2:04 PM CDT) Specimen Performing Organization Address City/State/Zipcode Phone Number HIM from Last 3 Months Insurance Payer Benefit Plan Subscriber ID Effective Phone Address Type / Group Dates AETNA - AETNA [id number] 2013-[place] [address] Medicare Adv MANAGED MEDICARE ADV nt [id number] [place] [address]
--- OUTSIDE RECORDS SUMMARY | 2019-02-13 19:58 | XMS REPORT | Clinical Summary ---
:1939 Author Organization [facility] Address [address] [place] [address] Care Team Providers Name Role Phone Pcp, [...] Depressive disorder 06/09/2013 Overview: ICD10 Diagnosis Term Rehabilitation Specialist Utility Encounters Date Type Specialty Care Team Description 11/29/2018 Orders Only Doctor Unassigned, [place] from Last 3 Months Social History Tobacco [...] Office Visit Neurology Aquiles Sahu, PHD [address] [place] [address] [phone] Health Maintenance Due Date Last Done Comments DTaP,Tdap,and Td Vaccines (1 - Tdap) 1959 Zoster Recombinant Vaccine (SHINGRIX) (1 of 2) 1989 Medicare Wellness Visit 02/15/2004 Osteoporosis Screening 02/15/2004 PNEUMOCOCCAL VACCINES 65+ (1 of 2 - PCV13) 02/15/2004 INFLUENZA VACCINE (#1) 2018 Procedures Procedure Name Priority Date/Time Associated Diagnosis Comments NOTICE OF BILLING Routine 11/29/2018 2:06 PM PRACTICES FOR MEDICARE CDT PATIENTS [facility] PATIENT FINANCIAL Routine 11/29/2018 2:05 PM POLICY CDT NO SHOW OR MISSED Routine 11/29/2018 2:04 PM APPOINTMENT POLICY CDT ACKNOWLEDGEMENT from Last 3 Months Results NOTICE OF BILLING [facility]ACT[facility] MEDICARE PATIENTS (11/29/2018 2:06 PM CDT) Specimen Performing Organization Address City/State/Zipcode Phone Number HIM [facility] PATIENT FINANCIAL POLICY (11/29/2018 2:05 PM CDT) Specimen Performing Organization Address City/State/Zipcode Phone Number HIM NO SHOW OR MISSED APPOINTMENT POLICY ACKNOWLEDGEMENT (11/29/2018 2:04 PM CDT) Specimen Performing Organization Address City/State/Zipcode Phone Number HIM from Last 3 Months Insurance Payer Benefit Plan Subscriber ID Effective Phone Address Type / Group Dates AETNA - AETNA [id number] 2013-[place] [address] Medicare Adv MANAGED MEDICARE ADV nt [id number] [facility] [place] [address]
--- OUTSIDE RECORDS SUMMARY | 2019-02-13 19:58 | XMS REPORT | Clinical Summary ---
:1940 Author Organization [facility] - [facility] Address [address] [place] [id number] Care Team Providers Name Role Phone Pcp, [...] Depressive disorder 06/09/2013 Overview: ICD10 Diagnosis Term Community Educator Utility Encounters Date Type Specialty Care Team Description 01/30/2019 Refill Neurology Ricky Brito MD Refill Request 11/29/2018 Orders Only Doctor Unassigned, Arabi from Last 3 Months Social History Tobacco [...] 07/21/2019 Office Visit Neurology Aquiles Sahu, PHD [address] [place] [address] [phone] Health Maintenance Due Date Last Done Comments DTaP,Tdap,and Td Vaccines (1 - Tdap) 1958 Zoster Recombinant Vaccine (SHINGRIX) (1 of 2) 1989 Medicare Wellness Visit 02/15/2004 Osteoporosis Screening 02/15/2004 PNEUMOCOCCAL VACCINES 65+ (1 of 2 - PCV13) 02/15/2004 INFLUENZA VACCINE (#1) 2018 Procedures Procedure Name Priority Date/Time Associated Diagnosis Comments NOTICE OF BILLING Routine 11/29/2018 2:06 PM PRACTICES FOR MEDICARE CDT PATIENTS [facility] PATIENT FINANCIAL Routine 11/29/2018 2:05 PM POLICY [...] Type / Group Dates AETNA - AETNA [id number] 2013-[place] [address] Medicare Adv MANAGED MEDICARE ADV nt [id number] [place] [address]
[2019-02-13] MEDS ORDERED: ONDANSETRON 4 MG/2 ML VIAL ONE (20:18)
[2019-02-13] MEDS ORDERED: FENTANYL CITR 100 MCG/2 ML ONE (20:18)
[2019-02-13] MEDS ORDERED: NA CHLORIDE 0.9% 1,000 ML ONE (20:19)
--- NOTE | 2019-02-13 20:43 | ER ---
Nurse's Notes [facility] Name: Igor Greco Age: 78 yrs Sex: Female : 1940 Arrival Date: 02/13/2019 Time: 19:56 Bed 6 Private MD: Diagnosis: Fall due to bumping against object;Displaced fracture of base of neck of left femur Presentation: 02/13 20:05 Presenting complaint: Patient states: fall from standing. Landed on the L side. C/O L ca1 groin pain 10/08. Fall at 1:25pm today. Transition of care: patient was not received from another setting of care. Onset of symptoms was February 13, 2019. Risk Assessment: Do you want to hurt yourself or someone else? Patient reports no desire to harm self or others. Initial Sepsis Screen: Does the patient meet any 2 criteria? No. Patient's initial sepsis screen is negative. Does the patient have a suspected source of infection? No. Patient's initial sepsis screen is negative. Care prior to arrival: None. 20:05 Method Of Arrival: Wheelchair ca1 20:05 Acuity: TROY 4 ca1 20:20 Mechanism of Injury: Fall from standing position. Trauma event details: Injury occurred ea in the [facility], Injury occurred: in a public building. Injury occurred: February 13, 2019. Trauma Activation: Not Applicable Physician: ED Physician; Name: ; Notified At: ; Arrived At: Physician: General Surgeon; Name: ; Notified At: ; Arrived At: Physician: Radiology; Name: ; Notified At: ; Arrived At: Physician: Respiratory; Name: ; Notified At: ; Arrived At: Physician: Lab; Name: ; Notified At: ; Arrived At: Historical: - Allergies: 20:08 Biaxin; ca1 20:08 Clarithromycin; ca1 20:08 Morphine (Vomiting); ca1 - Home Meds: 20:25 alendronate 70 mg Oral tab 1 tab once wkly [Active]; Amitiza 8 mcg Oral cap 1 cap 2 tl1 times per day [Active]; clonazepam 0.5 mg Oral tab 1 tab [Active]; docusate sodium 100 mg Oral tab 2 tabs once daily [Active]; fluoxetine 20 mg Oral cap 2 caps once daily [Active]; hydroxyzine HCl 25 mg Oral tab 1 tab 3 times per day [Active]; Inderal LA Oral [Active]; Myrbetriq 25 mg Oral Tb24 1 tab once daily [Active]; pravastatin 20 mg Oral tab 1 tab once daily [Active]; trazodone 50 mg Oral tab 2 tabs daily [Active]; - PMHx: 20:08 Anxiety; Depression; macular degeneration; Migraines; ca1 - PSHx: 20:08 sinus surgery; right hip surgery; tonsilectomy; Bladder suspension; ca1 - Immunization history:: Adult Immunizations up to date, Pneumococcal vaccine is not up to date, Flu vaccine is not up to date. - Social history:: Smoking status: Patient/guardian denies using tobacco. - Immunization history: Last tetanus immunization: < 10 years ago. - Ebola Screening: : Patient negative for fever greater than or equal to 101.5 degrees Fahrenheit, and additional compatible Ebola Virus Disease symptoms Patient denies exposure to infectious person Patient denies travel to an Ebola-affected area in the 21 days before illness onset No symptoms or risks identified at this time. - Family history:: not pertinent. Screenin:25 Abuse screen: Denies threats or abuse. Denies injuries from another. Nutritional tl1 screening: No deficits noted. Tuberculosis screening: No symptoms or risk factors identified. Fall Risk Fall in past 12 months (25 points). IV access (20 points). Gait- Weak (10 pts.). Mental Status- Overestimates/Forgets Limitations (15 pts.). Primary Survey: 20:11 NO uncontrolled hemorrhage observed. A: The patient is alert. Airway: patent. tl1 Breathing/Chest: Respiratory pattern: regular, Respiratory effort: spontaneous, unlabored, Breath sounds: clear. Circulation: Pulses: palpable . Skin color: pink, Skin temperature: warm. Disability Alert. Exposure/Environment: All clothing and personal items were removed. Forensic evidence collection is not deemed to be indicated at this time. Items placed in patient belonging bag. There is no evidence of uncontrolled external bleeding. A warming method has been applied: A warm blanket has been provided to the patient. Reassessment Airway Airway Patent Breathing/Chest Respiratory pattern Regular Respiratory effort Spontaneous Unlabored Circulation Pulses Palpable Color [place] Disability Alert. Secondary Survey: 20:13 HEENT: No deficits noted. Gastrointestinal: No deficits noted. : No deficits noted. tl1 Musculoskeletal: Circulation, motion, and sensation intact. Range of motion: limited in left hip Tenderness Reports pain in left femoral area and left hip. Injury Description: reports pain to left groin area s/p fall. Assessment: 20:20 General: Appears uncomfortable, Behavior is appropriate for age. Pain: Complains of ea pain in left inner thigh. Neuro: Level of Consciousness is awake, alert, obeys commands, Oriented to person, place, time, situation. Cardiovascular: Patient's skin is warm and dry. Respiratory: Airway is patent Respiratory effort is even, unlabored, Respiratory pattern is regular, symmetrical. Derm: Skin is pink, warm \T\ dry. Musculoskeletal: Circulation, motion, and sensation intact. 21:50 Reassessment: Patient and/or family updated on plan of care and expected duration. Pain ea level reassessed. Patient is alert, oriented x 3, equal unlabored respirations, skin warm/dry/pink. 22:42 Reassessment: Patient and/or family updated on plan of care and expected duration. Pain ea level reassessed. Patient is alert, oriented x 3, equal unlabored respirations, skin warm/dry/pink. Pt admitted to fourth floor, left ED via stretcher, per tech. Pt tolerating well. Vital Signs: 20:10 Height 5 ft. 4 in. (162.56 cm); Pain 8/10; ca1 20:10 BP 136 / 59; Pulse 82; Resp 17; Temp 98.3; Pulse Ox 94% ; Pain 8/10; tl1 20:11 Weight 56.7 kg; Height 5 ft. 4 in. (162.56 cm); tl1 21:06 BP 138 / 90; Pulse 77; Resp 17; Pulse Ox 96% on 2 lpm NC; Pain 4/10; tl1 22:30 BP 135 / 88; Pulse 79; Resp 18; Pulse Ox 96% on 2 lpm NC; ea 20:11 Body Mass Index 21.46 (56.70 kg, 162.56 cm) tl1 [place] Coma Score: 20:10 Eye Response: spontaneous(4). Verbal Response: oriented(5). Motor Response: obeys tl1 commands(6). Total: 15. Trauma Score (Adult): 20:10 Eye Response: spontaneous(1); Verbal Response: oriented(1); Motor Response: obeys tl1 commands(2); Systolic BP: > 89 mm Hg(4); Respiratory Rate: 10 to 29 per min(4); [place] Score: 15; Trauma Score: 12 ED Course: 19:56 Patient arrived in ED. [email or web address] 20:05 Tim Kearney MD is Attending Physician. morgan 20:06 Triage completed. ca1 20:08 Arm band placed on right wrist. ca1 20:10 Hermelinda Kerns, JENNIFER is Primary Nurse. tl1 20:20 Patient has correct armband on for positive identification. Placed in gown. Bed in low ea position. Call light in reach. Side rails up X2. 20:20 Patient maintains SpO2 saturation greater than 95% on room air. Thermoregulation: warm ea blanket given to patient. 20:25 No provider procedures requiring assistance completed. Inserted saline lock: 20 gauge tl1 in right forearm, using aseptic technique. 20:40 Landry Trotter MD is Hospitalizing Provider. morgan 22:40 Patient admitted, IV remains in place. tl1 Administered Medications: 20:26 Drug: NS 0.9% 1000 ml Route: IV; Rate: 125 ml/hr; Site: right wrist; ea 22:15 Follow up: IV Status: Infusion continued upon admission ea 22:15 Follow up: Response: No adverse reaction ea 20:27 Drug: Zofran 4 mg Route: IVP; Site: right wrist; ea 21:50 Follow up: Response: No adverse reaction ea 20:28 Drug: fentaNYL (PF) 25 mcg {Note: RASS 1.} Route: IVP; Site: right wrist; ea 21:50 Follow up: Response: No adverse reaction; Pain is decreased ea 22:15 Follow up: Response: RASS: Alert and Calm (0) ea 22:13 Drug: fentaNYL (PF) 25 mcg {Note: RASS 0.} Route: IVP; Site: right wrist; ea 22:41 Follow up: Response: No adverse reaction; Marked relief of symptoms; Pain is decreased; tl1 RASS: Alert and Calm (0) Intake: 22:41 PO: 0ml; IV: 250ml; Total: 250ml. tl1 Output: 22:41 Urine: 0ml; Total: 0ml. tl1 Outcome: 20:41 Decision to Hospitalize by Provider. morgan 21:00 Instructed on the need for admit, Demonstrated understanding of instructions. ea 22:23 Patient's length of stay was not longer than 2 hours. justina 22:23 Admitted to Tele accompanied by tech, family with patient, via stretcher, with chart, tl1 Report called to Karrie RODRIGUEZ 22:23 Condition: stable 22:23 Patient's length of stay was not longer than 2 hours. 22:43 Patient left the ED. ea Signatures: Tim Kearney MD MD cha Lasagna, Tonya RN RN tl1 Raya Castillo RN RN Zayra Portillo RN RN Anne Woodward [email or web address] Corrections: (The following items were deleted from the chart) 22:13 20:28 fentaNYL (PF) 25 mcg IVP in right wrist justina horn
--- NOTE | 2019-02-13 20:43 | EDPHYS ---
Physician Documentation [facility] Name: Igor Greco Age: 78 yrs Sex: Female : 1940 Arrival Date: 02/13/2019 Time: 19:56 Bed 6 Private MD: ED Physician Tim Kearney HPI: 02/13 20:13 This 78 yrs old Female presents to ER via Wheelchair with complaints of Fall morgan Injury. 20:13 Details of fall: The patient fell from an upright position, while standing, while morgan walking. Onset: The symptoms/episode began/occurred 6 hour(s) ago. Associated injuries: The patient sustained injury to the low back, decreased range of motion, pain, pain with movement, tenderness. Severity of symptoms: At their worst the symptoms were moderate, in the emergency department the symptoms are unchanged. The patient has not experienced similar symptoms in the past. Historical: - Allergies: 20:08 Biaxin; ca1 20:08 Clarithromycin; ca1 20:08 Morphine (Vomiting); ca1 - Home Meds: 20:25 alendronate 70 mg Oral tab 1 tab once wkly [Active]; Amitiza 8 mcg Oral cap 1 cap 2 tl1 times per day [Active]; clonazepam 0.5 mg Oral tab 1 tab [Active]; docusate sodium 100 mg Oral tab 2 tabs once daily [Active]; fluoxetine 20 mg Oral cap 2 caps once daily [Active]; hydroxyzine HCl 25 mg Oral tab 1 tab 3 times per day [Active]; Inderal LA Oral [Active]; Myrbetriq 25 mg Oral Tb24 1 tab once daily [Active]; pravastatin 20 mg Oral tab 1 tab once daily [Active]; trazodone 50 mg Oral tab 2 tabs daily [Active]; - PMHx: 20:08 Anxiety; Depression; macular degeneration; Migraines; ca1 - PSHx: 20:08 sinus surgery; right hip surgery; tonsilectomy; Bladder suspension; ca1 - Immunization history:: Adult Immunizations up to date, Pneumococcal vaccine is not up to date, Flu vaccine is not up to date. - Social history:: Smoking status: Patient/guardian denies using tobacco. - Immunization history: Last tetanus immunization: < 10 years ago. - Ebola Screening: : Patient negative for fever greater than or equal to 101.5 degrees Fahrenheit, and additional compatible Ebola Virus Disease symptoms Patient denies exposure to infectious person Patient denies travel to an Ebola-affected area in the 21 days before illness onset No symptoms or risks identified at this time. - Family history:: not pertinent. ROS: 20:13 Constitutional: Negative for fever, chills, and weight loss, Eyes: Negative for injury, morgan pain, redness, and discharge, ENT: Negative for injury, pain, and discharge, Neck: Negative for injury, pain, and swelling, Cardiovascular: Negative for chest pain, palpitations, and edema, Respiratory: Negative for shortness of breath, cough, wheezing, and pleuritic chest pain, Abdomen/GI: Negative for abdominal pain, nausea, vomiting, diarrhea, and constipation, Back: Negative for injury and pain, : Negative for injury, bleeding, discharge, and swelling, Skin: Negative for injury, rash, and discoloration, Neuro: Negative for headache, weakness, numbness, tingling, and seizure. 20:13 MS/extremity: Positive for decreased range of motion, pain, of the left hip, left gluteal fold, left inner thigh and left upper thigh. Exam: 20:13 Constitutional: This is a well developed, well nourished patient who is awake, alert, morgan and in no acute distress. Head/Face: Normocephalic, atraumatic. Eyes: Pupils equal round and reactive to light, extra-ocular motions intact. Lids and lashes normal. Conjunctiva and sclera are non-icteric and not injected. Cornea within normal limits. Periorbital areas with no swelling, redness, or edema. ENT: Nares patent. No nasal discharge, no septal abnormalities noted. Tympanic membranes are normal and external auditory canals are clear. Oropharynx with no redness, swelling, or masses, exudates, or evidence of obstruction, uvula midline. Mucous membranes moist. Neck: Trachea midline, no thyromegaly or masses palpated, and no cervical lymphadenopathy. Supple, full range of motion without nuchal rigidity, or vertebral point tenderness. No Meningismus. Chest/axilla: Normal chest wall appearance and motion. Nontender with no deformity. No lesions are appreciated. Cardiovascular: Regular rate and rhythm with a normal S1 and S2. No gallops, murmurs, or rubs. Normal PMI, no JVD. No pulse deficits. Respiratory: Lungs have equal breath sounds bilaterally, clear to auscultation and percussion. No rales, rhonchi or wheezes noted. No increased work of breathing, no retractions or nasal flaring. Abdomen/GI: Soft, non-tender, with normal bowel sounds. No distension or tympany. No guarding or rebound. No evidence of tenderness throughout. Back: No spinal tenderness. No costovertebral tenderness. Full range of motion. Skin: Warm, dry with normal turgor. Normal color with no rashes, no lesions, and no evidence of cellulitis. Neuro: Awake and alert, GCS 15, oriented to person, place, time, and situation. Cranial nerves II-XII grossly intact. Motor strength 5/5 in all extremities. Sensory grossly intact. Cerebellar exam normal. Normal gait. Psych: Awake, alert, with orientation to person, place and time. Behavior, mood, and affect are within normal limits. 20:13 Musculoskeletal/extremity: ROM: intact in all extremities, Circulation is intact in all extremities. Sensation intact. Compartment Syndrome exam of affected extremity: is normal. Weight bearing: can bear weight with assistance only, DVT Exam: no swelling, negative Homans' sign noted on exam, no appreciated bluish discoloration, no erythema, no increased warmth, pain, tenderness. Vital Signs: 20:10 Height 5 ft. 4 in. (162.56 cm); Pain 8/10; ca1 20:10 BP 136 / 59; Pulse 82; Resp 17; Temp 98.3; Pulse Ox 94% ; Pain 8/10; tl1 20:11 Weight 56.7 kg; Height 5 ft. 4 in. (162.56 cm); tl1 21:06 BP 138 / 90; Pulse 77; Resp 17; Pulse Ox 96% on 2 lpm NC; Pain 4/10; tl1 22:30 BP 135 / 88; Pulse 79; Resp 18; Pulse Ox 96% on 2 lpm NC; ea 20:11 Body Mass Index 21.46 (56.70 kg, 162.56 cm) tl1 [place] Coma Score: 20:10 Eye Response: spontaneous(4). Verbal Response: oriented(5). Motor Response: obeys tl1 commands(6). Total: 15. Trauma Score (Adult): 20:10 Eye Response: spontaneous(1); Verbal Response: oriented(1); Motor Response: obeys tl1 commands(2); Systolic BP: > 89 mm Hg(4); Respiratory Rate: 10 to 29 per min(4); [place] Score: 15; Trauma Score: 12 MDM: 20:05 Patient medically screened. [facility] 20:15 Data reviewed: vital signs, nurses notes, lab test result(s), radiologic studies, plain morgan films. 02/13 20:40 Order name: Basic Metabolic Panel [facility] 02/13 20:40 Order name: CBC with Diff [facility] 02/13 20:40 Order name: LFT's [facility] 02/13 20:40 Order name: Magnesium [facility] 02/13 20:40 Order name: NT PRO-BNP [facility] 02/13 20:40 Order name: PT-INR [facility] 02/13 20:40 Order name: Troponin (emerg Dept Use Only) [facility] 02/13 20:40 Order name: Type And Screen [facility] 02/13 20:59 Order name: CBC with Automated Diff [facility] 02/13 21:01 Order name: Protime (+INR) [facility] 02/13 21:15 Order name: Basic Metabolic Panel [facility] 02/13 21:15 Order name: Liver (Hepatic) Function [facility] 02/13 21:15 Order name: Troponin (Emerg Dept Use Only) [facility] 02/13 21:15 Order name: NT PRO-BNP [facility] 02/13 20:11 Order name: Hip Left 2 View XRAY [facility] 02/13 20:11 Order name: Pelvis XRAY [facility] 02/13 20:40 Order name: XRAY Chest (1 view) [facility] 02/13 20:40 Order name: Femur Left XRAY [facility] 02/13 20:59 Order name: RAD [facility] 02/13 20:59 Order name: RAD [facility] 02/13 21:06 Order name: RAD [facility] 02/13 21:10 Order name: RAD [facility] 02/13 21:15 Order name: Magnesium [facility] 02/13 21:39 Order name: CBC Smear Scan [facility] 02/13 21:49 Order name: Type and Screen [facility] 02/13 21:51 Order name: ABO/RH no charge [facility] 02/13 20:40 Order name: EKG; Complete Time: 20:43 [facility] 02/13 20:40 Order name: Cardiac monitoring; Complete Time: 21:07 [facility] 02/13 20:40 Order name: EKG - Nurse/Tech; Complete Time: 21:07 [facility] 02/13 20:40 Order name: IV Saline Lock; Complete Time: 20:51 [facility] 02/13 20:40 Order name: Labs collected and sent; Complete Time: 20:52 [facility] 02/13 20:40 Order name: O2 Per Protocol; Complete Time: 20:52 [facility] 02/13 20:40 Order name: O2 Sat Monitoring; Complete Time: 20:52 [facility] Administered Medications: 20:26 Drug: NS 0.9% 1000 ml Route: IV; Rate: 125 ml/hr; Site: right wrist; ea 22:15 Follow up: IV Status: Infusion continued upon admission ea 22:15 Follow up: Response: No adverse reaction ea 20:27 Drug: Zofran 4 mg Route: IVP; Site: right wrist; ea 21:50 Follow up: Response: No adverse reaction ea 20:28 Drug: fentaNYL (PF) 25 mcg {Note: RASS 1.} Route: IVP; Site: right wrist; ea 21:50 Follow up: Response: No adverse reaction; Pain is decreased ea 22:15 Follow up: Response: RASS: Alert and Calm (0) ea 22:13 Drug: fentaNYL (PF) 25 mcg {Note: RASS 0.} Route: IVP; Site: right wrist; ea 22:41 Follow up: Response: No adverse reaction; Marked relief of symptoms; Pain is decreased; tl1 RASS: Alert and Calm (0) Disposition: 02/13/19 20:41 Hospitalization ordered by Landry Trotter for Inpatient Admission. Preliminary diagnosis are Fall due to bumping against object, Displaced fracture of base of neck of left femur. - Bed requested for Telemetry/MedSurg (Inpatient). - Status is Inpatient Admission. ea - Condition is Fair. - Problem is new. - Symptoms have improved. UTI on Admission? No Signatures: Dispatcher [employer] EDTim Masterson MD MD cha Lasagna, Tonya, RN RN tl1 Juana Toribio RN RN cg Antunez, Elena, RN RN ea Acob, Cheryl, RN RN ca1 Corrections: (The following items were deleted from the chart) 22:07 20:41 Hospitalization Ordered by Landry Trotter MD for Inpatient Admission. Preliminary cg diagnosis is Fall due to bumping against object; Displaced fracture of base of neck of left femur. Bed requested for Telemetry/MedSurg (Inpatient). Status is Inpatient Admission. Condition is Fair. Problem is new. Symptoms have improved. UTI on Admission? No. morgan 22:43 22:07 02/13/2019 20:41 Hospitalization Ordered by Landry Trotter MD for Inpatient ea Admission. Preliminary diagnosis is Fall due to bumping against object; Displaced fracture of base of neck of left femur. Bed requested for Telemetry/MedSurg (Inpatient). Status is Inpatient Admission. Condition is Fair. Problem is new. Symptoms have improved. UTI on Admission? No.
--- NOTE | 2019-02-13 20:56 | RAD REPORT ---
EXAM DESCRIPTION: RAD - Pelvis - 02/13/2019 8:49 pm CLINICAL HISTORY: Pelvic pain status post injury FINDINGS: Impacted moderately displaced subcapital fracture. No dislocation
--- NOTE | 2019-02-13 20:56 | RAD REPORT ---
EXAM DESCRIPTION: RAD - Hip Left 2 View - 02/13/2019 8:49 pm CLINICAL HISTORY: Left hip pain status post injury FINDINGS: Impacted moderately displaced subcapital fracture. No dislocation .
[2019-02-13 20:57] LABS: Absolute Lymphocytes (CBC) 0.4 K/uL (0.7-4.9); Basophils % 0.2 % (0-1.3); Hematocrit 37.6 % (36.0-45.0); MPV 8.1 fL (7.6-11.3); RBC Red Blood Cell Count 4.75 M/uL (3.86-4.86)
--- NOTE | 2019-02-13 20:57 | RAD REPORT ---
EXAM DESCRIPTION: RAD - Femur Left - 02/13/2019 8:49 pm CLINICAL HISTORY: Left leg pain FINDINGS: Impacted moderately displaced subcapital fracture. No dislocation
[2019-02-13 20:59] LABS: Protime INR 1.05
--- NOTE | 2019-02-13 21:04 | RAD REPORT ---
EXAM DESCRIPTION: Tony Single View02/13/2019 8:49 pm CLINICAL HISTORY: cough COMPARISON: 2016 FINDINGS: Moderate scoliosis involves the spine A small hiatal hernia Double density overlies the main pulmonary artery. This appears more prominent than on the prior exa m Lungs appear clear of acute infiltrate. The heart probably is borderline enlarged IMPRESSION: Double density overlies the main pulmonary artery. This may simply represent main pulmon kitty artery appearing prominent secondary to the scoliosis. Lymphadenopathy or aneurysm can also resul t in this appearance. CT chest is recommended
[2019-02-13 21:15] LABS: ALT/SGPT 19 U/L (12-78); AST/SGOT 20 U/L (15-37); Albumin 3.7 g/dL (3.4-5.0); Alkaline Phosphatase 70 U/L (45-117); BUN Blood Urea Nitrogen 12 mg/dL (7-18); Bicarbonate 25 mmol/L (21-32); Bilirubin Direct 0.1 mg/dL (0-0.2); Bilirubin Total 0.7 mg/dL (0.2-1.0); Glucose Level 131 mg/dL (74-106); Magnesium 1.9 mg/dL (1.8-2.4); NT PRO-BNP 179 pg/mL (<450); Potassium 3.3 mmol/L (3.5-5.1); Protein, Total 6.8 g/dL (6.4-8.2); Sodium Level 140 mmol/L (136-145); Troponin (Emerg Dept Use Only) < 0.02 ng/mL (0.0-0.045)
[2019-02-13 21:38] LABS: Blood Morphology Comment NOT SEEN (NOT SEEN); Platelet Estimate ADEQ; Urine White Blood Cell Casts OK
[2019-02-13] MEDS: NA CHLORIDE 0.9% 1,000 ML IV SCH (23:03)
[2019-02-13] MEDS ORDERED: ACETAMINOPHEN 500 MG TAB PO PRN (23:03)
[2019-02-14] MEDS: FENTANYL CITR 100 MCG/2 ML IV PRN ×4 (01:12→23:17)
[2019-02-14] MEDS: ONDANSETRON 4 MG/2 ML VIAL IV PRN (01:12)
[2019-02-14] MEDS: FAMOTIDINE 20 MG/2 ML VIAL IV SCH ×2 (01:12→08:34)
[2019-02-14 02:02] LABS: Urine Appearance CLOUDY; Urine Bilirubin NEGATIVE (NEG); Urine Blood NEGATIVE (NEG); Urine Color YELLOW; Urine Glucose NEGATIVE (NEG); Urine Protein NEGATIVE (NEG)
[2019-02-14 02:04] LABS: Urine Microscopic Reflex ORDER UMIC
[2019-02-14 02:10] LABS: Urine Culture Reflex Order REFLEXED
[2019-02-14 02:11] LABS: Urine Bacteria <20 /HPF (<20); Urine RBC <5 /HPF (NONE SEEN); Urine Urothelial Cells <5 /HPF (NONE SEEN)
[2019-02-14 02:27] VITALS: BMI 20.5
[2019-02-14 04:15] LABS: Absolute Lymphocytes (CBC) 0.7 K/uL (0.7-4.9); Basophils % 0.3 % (0-1.3); Hematocrit 32.7 % (36.0-45.0); Lymphocytes % 9.9 % (15.3-44.8); MPV 7.8 fL (7.6-11.3)
[2019-02-14 04:45] LABS: Potassium 3.9 mmol/L (3.5-5.1)
[2019-02-14] MEDS: NA CHLORIDE 0.9% 1,000 ML IV SCH ×4 (05:26→20:19)
--- NOTE | 2019-02-14 06:53 | EKG ---
Test Date: 2019-02-13 Test Time: 21:05:49 Credit Underwriter: NEISHA MEASUREMENT RESULTS: Intervals: Rate: 78 MO: 142 QRSD: 84 QT: 424 QTc: 483 [place]: P: 74 MO: 142 QRS: 8 T: 57 INTERPRETIVE STATEMENTS: Normal sinus rhythm Nonspecific ST and T wave abnormality Prolonged QT Abnormal ECG Compared to ECG 06/21/2018 20:08:13 Prolonged QT interval now present Atrial premature complex(es) no longer present Incomplete right bundle-branch block no longer present ST (T wave) deviation still present Electronically Signed On 02-14-19 06:53:28 TISSUE COORDINATOR by Alvaro Zhu
[2019-02-14] MEDS ORDERED: CEFAZOLIN/SWI 1gm 1 GM/10 ML SYR ONE ×2 (11:46)
[2019-02-14] MEDS ORDERED: TRANEXAMIC ACID 1,000 MG in NA CHLORIDE 0.9% 50 ML IV ONE (12:00)
[2019-02-14] MEDS ORDERED: MIDAZOLAM HCL 2 MG/2 ML INJ ONE (12:19)
[2019-02-14] MEDS ORDERED: FENTANYL CITR 100 MCG/2 ML ONE ×2 (12:19→12:59)
[2019-02-14] MEDS ORDERED: LIDOCAINE 2% MPF 5 ML VIAL ONE (12:19)
[2019-02-14] MEDS ORDERED: propofoL 200 MG/20 ML VIAL IV ONE ×3 (12:19→12:36)
[2019-02-14] MEDS ORDERED: SCOPOLAMINE HYDROBROMIDE PATCH TD ONE (12:24)
[2019-02-14] MEDS ORDERED: ACETAMINOPHEN 325 MG TABLET PO PRN (12:44)
[2019-02-14] MEDS ORDERED: NS 0.9% VIAL 10 ML ONE (12:47)
[2019-02-14] MEDS ORDERED: Phenylephrine HCl 10 MG/ML 1 ML VIAL ONE (12:47)
[2019-02-14] MEDS ORDERED: NA CHLORIDE 0.9% 1,000 ML ONE (12:50)
[2019-02-14] MEDS: BUPIVACA 0.5%/EPI 0.0005%/PF 30 ML VIAL ONE ×2 (13:14→13:33)
--- NOTE | 2019-02-14 13:56 | P.BOP ---
Preoperative diagnosis: left femoral neck fracture Postoperative diagnosis: same Primary procedure: closed reduction percutaneous screw fixation left femoral neck fracture Instrumentation Chemist: NONE,NONE Estimated blood loss: 5 cc Specimen: none Findings: see dictation Anesthesia: General Complications: None Drain(s): Urinary catheter Implants: 6.5 mm cannulated screws C- 80 mm, A 75 mm, P 70 mm Fluids & blood products: per anesthesia record Transferred to: Recovery Room Condition: Good
[2019-02-14] MEDS ORDERED: DOCUSATE NA 100 MG CAP PO PRN (14:03)
[2019-02-14] MEDS ORDERED: ONDANSETRON 4 MG/2 ML VIAL ONE (14:09)
--- NOTE | 2019-02-14 14:49 | RAD REPORT ---
EXAM DESCRIPTION: RAD - Hip Left 2 View - 02/14/2019 2:32 pm CLINICAL HISTORY: LEFT HIP SURGERY FINDINGS: Three pins affix a left femoral fracture in good alignment. No dislocation
--- NOTE | 2019-02-14 16:19 | RAD REPORT ---
EXAM DESCRIPTION: RAD - Hip In Or - 02/14/2019 4:10 pm FINDINGS: There were 9 portable C-arm views obtained during fluoroscopic assisted placement of fract ure fixation hardware. No suspicious or unexpected findings. Fluoro time was 1.0 minutes.
[2019-02-14] MEDS: CEFTRIAXONE/SWI 1gm 1 GM/10 ML SYR IV SCH (18:00)
--- NOTE | 2019-02-14 23:49 | HP ---
Date of Admission: 02/13/2019 History Of Present Illness: 79 year female, who kind of tripped from standing position and fell on t he floor. She started having left lower extremity pain, came to emergency room and was found to have moderately displaced subcapital fracture of the left femur. She was admitted for that. The patient prior to that had no dizziness. She had no palpitations. No chest pain. No increased shortness of breath. She said she was doing well and had no other complaints. Review of Systems: Skeletomuscular: As above. Cardiovascular: No complaints. Respiratory: No complaints. ENT: No complaint. Neurological: No complaint. Gastrointestinal: No complaint. Past Medical History: 1.Hypertension. 2.Hyperlipidemia. 3.Mixed anxiety, depression. 4.Migraines. 5.Macular degeneration. Past Surgical History: Patient also has had previous right hip surgery, bladder suspension surgery, sinus surgery, and tonsillectomy. Social History: No smoking, alcohol, or drug abuse history. Family History: Noncontributing. Medications: Fosamax 70 mg p.o. weekly, pravastatin 40 mg p.o. daily. Propranolol 20 mg p.o. b.i.d. , trazodone 50 mg p.o. at bedtime, Amitiza 8 mg p.o. daily, Atarax 25 mg p.o. daily p.r.n., fluoxetin e 20 mg p.o. daily. Allergies: CLARITHROMYCIN AND MORPHINE. Physical Examination: Vital Signs: Blood pressure 150/74, pulse 80, temperature 99.8. Heart: Regular rate and rhythm. Chest: Clear to auscultation. Abdomen: Soft, nontender. No hepatosplenomegaly. Bowel sounds are normoactive. Extremities: No edema. No cyanosis. Peripheral pulses are felt. Neurological: Alert, oriented, nonfocal. Grossly intact. Patient left hip area showed mild bruise with some tenderness. As mentioned, hip x-ray showed left f emur, moderately displaced subcapital fracture. Chest x-ray, no acute pathology; however, an angiopa thy or an aneurysm is considered for opacities overlying the pulmonary artery. Laboratory Data: Hemoglobin 10.6, hematocrit 32.7, platelets 217. PT/INR noted. Chemistry; chlorid e 110, bicarb 28, calcium 7.8, GFR 70. Urinalysis; 3+ esterase, more than 50 wbc's. Assessment And Plan: Left femur subcapital fracture, moderately displaced. Patient is being admitte d. Dr. Alvarez seen the patient on evaluating the patient clinically and with her labs and her EKG show ed sinus rhythm, nonspecific ST-T wave abnormality and prolonged QT. I think, patient has acceptable risk for the intended surgery for her fracture. We will follow up the patient after the surgery. W kathrine will continue her home medicines. We will order a chest CT after her surgery. Follow up on her est x-ray. Look orders for details. MFS/MODL Voice ID: [id number]
--- NOTE | 2019-02-15 01:23 | OP ---
Date of Procedure: 02/14/2019 Surgeon: Bruce Alvarez MD Preoperative Diagnosis: Left femoral neck fracture. Postoperative Diagnosis: Left femoral neck fracture. Procedure Performed: Closed reduction and percutaneous screw fixation of left femoral neck fracture. Anesthesia: General LMA. Fluids: Per Anesthesia record. Estimated Blood Loss: 5 mL. Implants: Three 6.5 mm cannulated screws, the center screw is 80 mm, anterior screw is 75 mm, communications executive ior screw is 70 mm. Complications: None. Indication For Procedure: Igor is an 79-year-old female who presented to the ER last night after s ustaining a fall onto her left side with subsequent pain to her left hip, inability to bear weight. X-rays demonstrated a valgus impacted left femoral neck fracture. Discussed with the patient and her family at length risks and benefits associated with operative and nonoperative treatment. They expr essed understanding and elected to proceed with operative treatment. Description Of Procedure: After informed consent was obtained, the patient was identified in the pre operative holding area. The left lower extremity was marked. The patient was then brought back to [facility] operating room, transferred to the operating table in supine fashion, placed under general LMA ane sthesia. She was placed on the fracture table with her extremities well padded. The left lower extr emity was then prepped and draped in the usual sterile fashion. A time-out was initiated. The corre ct patient and procedure were confirmed and identified. The patient did receive her preoperative pro phylactic antibiotics prior to surgical prep of the left lower extremity. Fluoroscopy was used to en sure proper reduction of the fracture. Once proper reduction of the fracture was confirmed on both [facility] AP and lateral views, the left lower extremity was prepped. Fluoroscopy was then used to identify the entry point for the first percutaneous screw, approximately 1 cm sized incision was made over th e lateral thigh in line with the inferior medial calcar screw. The screw entry point was placed just above the level of the lesser trochanter and placed into the femoral head along the medial calcar in a center-center position. Fluoroscopy was used to ensure proper placement of the pin on both AP and lateral views. Once near the subchondral bone, 2 remaining pins were placed after 2 stab incisions were made just proximal to the initial pin placement. The pins were placed in an inverted triangle c onfiguration. Fluoroscopy was used to ensure proper placement and depth of the tendon within the sup erior aspect of the femoral neck. Once proper placement of these parallel pins was confirmed using f luoroscopy, the outer cortex was then drilled with a cannulated drill. The pin lengths were then matilda sured. The center inferior screw was placed, which was 80 mm; anterior superior screw was placed, wh ich was 75 mm; and the posterior superior screw was 70 mm. Short thread 6.5 mm cannulated screws wer e placed and there was good overall purchase of the screws within the femoral head and neck. The laura jose pins were then removed without complication. The wound was then irrigated thoroughly with normal saline. Final x-rays were taken and used to confirm proper placement of screws and the screws were a ll within the femoral head. The subcutaneous tissue was approximated using a 2-0 Vicryl. Skin was a pproximated using luzmaria. The patient was awakened and transferred to PACU in stable condition. Postoperative Plan: The patient will be transferred to the floor. Physical Therapy will be consulte d to aid with mobilization. Dr. Trotter will continue to monitor the patient medically. DAYANA/ADAL Voice ID: [id number] Report ID: [id number]
--- NOTE | 2019-02-15 02:14 | CON ---
Date of Consultation: 02/14/2019 Reason For Consultation: Left hip pain. History Of Present Illness: Ms. Greco is an 79-year-old female, who presented to the ER after sust aining a fall onto her left side with subsequent left hip pain and inability to bear weight. She was brought to the emergency room and had x-rays, which demonstrated a left femoral neck fracture. The patient denies any musculoskeletal complaints at this time. Review of Systems: As above, otherwise negative. Past Medical History: Includes anxiety, depression, macular degeneration, and migraines. Past Surgical History: Includes CRPP of right hip, tonsillectomy, bladder suspension, and sinus surg vanessa. Home Medications: Include, alendronate, Amitiza, clonazepam, Colace, fluoxetine, hydroxyzine, Indera l, Myrbetriq, pravastatin, trazodone. Allergies: TO BIAXIN, CLARITHROMYCIN, AND MORPHINE. Social History: Denies tobacco or alcohol use. Physical Examination: General: In no apparent distress. HEENT: Normocephalic, atraumatic. Neck: Supple. Cardiovascular: Brisk capillary refill to all digits. Chest: Nonlabored breathing. Abdomen: Nondistended. Psychiatric: Responsive to exam. Musculoskeletal: Bilateral upper extremities functional range of motion without pain. No gross defo rmities. No obvious dislocations. Right lower extremity functional range of motion without pain. N o gross deformities. No obvious dislocations. Left lower extremity pain with range of motion of the left hip, tenderness to palpation of the left hip. No tenderness to palpation of the knee, tibia, o r ankle. Positive firing of EHL, FHL, gastrocsoleus complex, tibialis anterior. Sensation grossly i ntact to the dorsal and plantar foot. X-rays: X-rays of the left hip demonstrate a valgus impacted left femoral neck fracture consistent w ith a stable fracture pattern. Assessment And Plan: Ms. Greco is an 79-year-old female with a left femoral neck fracture. I disc ussed with the patient and her family at length risks and benefits associated with operative and nono perative treatment measures. Given the fracture pattern, I recommended a closed reduction percutaneo us screw fixation of her left hip. The risks and benefits associated with treatment were discussed a nd we will proceed with closed reduction percutaneous pinning after medical evaluation and clearance by Dr. Allred. CV/MODL Voice ID: [id number] Report ID: [id number]
[2019-02-15 04:20] LABS: Absolute Lymphocytes (CBC) 0.5 K/uL (0.7-4.9); Basophils % 0.3 % (0-1.3); Hematocrit 31.5 % (36.0-45.0); Lymphocytes % 5.9 % (15.3-44.8); MPV 8.1 fL (7.6-11.3); RBC Red Blood Cell Count 3.97 M/uL (3.86-4.86)
[2019-02-15 04:28] LABS: BUN Blood Urea Nitrogen 7 mg/dL (7-18); Bicarbonate 23 mmol/L (21-32); Glucose Level 105 mg/dL (74-106); Potassium 3.2 mmol/L (3.5-5.1); Sodium Level 139 mmol/L (136-145)
[2019-02-15] MEDS: FENTANYL CITR 100 MCG/2 ML IV PRN (05:23)
[2019-02-15] MEDS: NA CHLORIDE 0.9% 1,000 ML IV SCH ×3 (05:24→17:54)
[2019-02-15] MEDS: ENOXAPARIN 40 MG/0.4 ML SQ SCH (09:35)
[2019-02-15] MEDS: ONDANSETRON 4 MG/2 ML VIAL IV PRN ×2 (09:38→14:31)
[2019-02-15] MEDS: FAMOTIDINE 20 MG/2 ML VIAL IV SCH (09:39)
--- NOTE | 2019-02-15 09:53 | P.PN ---
Subjective Date of Service: 02/15/19 Chief Complaint: s/p CRPP right hip Subjective: Improving pain controlled Physical Examination - Vital Signs Temperature: 98.1 F Blood Pressure: 138/60 Pulse: 99 Respirations: 28 Pulse Ox (%): 93 - Physical Exam General: Alert, In no apparent distress Musculoskeletal: Other (RLE: dressing c/d/i; +EHL/FHL/GSC/TA; sensation grossly intact distally) Assessment And Plan - Plan Igor is an 79 yo female s/p CRPP left femoral neck fracture POD#1 -PT to mobilize; TDWB LLE -lovenox for DVT prophylaxis -await inpatient rehab evaluation
[2019-02-15] MEDS ORDERED: POTASSIUM CL SA 10 MEQ TAB PO ONE (14:00)
[2019-02-15] MEDS: TRAMADOL HCL 50 MG TAB PO PRN (14:31)
[2019-02-15] MEDS: CEFTRIAXONE/SWI 1gm 1 GM/10 ML SYR IV SCH (17:55)
--- NOTE | 2019-02-15 19:13 | PN ---
Subjective: Patient had her surgical procedure on the left femur. She is doing well. Has no new co mplaints. Objective: Vital Signs: Patient's blood pressure 137/67, pulse 100, temperature 99.5. Heart: Regular rate and rhythm. Chest: Clear to auscultation. Abdomen: Soft, nontender. Bowel sounds are hypoactive, but heard. Neurologic: Alert, oriented, nonfocal. Grossly intact. Extremities: No edema. No cyanosis. Laboratory Data: Hemoglobin today at 10.2, hematocrit 31.5, platelets 175. Chemistry; potassium 3.2 , calcium 7.6. The rest is noted. Microbiology of her urine showed mixed meño. Assessment And Plan: 1.Status post left femur neck fracture reduction surgery, doing well. 2.Chronic medical illnesses are . Pending rehab consultation for PT and OT. We will cont inue current management and treatment. MFS/MODL Voice ID: [id number] Report ID: [id number]
[2019-02-15] MEDS: ALPRAZOLAM 0.5 MG TABLET PO PRN (20:44)
[2019-02-16 04:37] LABS: Magnesium 1.8 mg/dL (1.8-2.4); Phosphorus 1.6 mg/dL (2.5-4.9); Potassium 4.3 mmol/L (3.5-5.1)
[2019-02-16] MEDS: POTASS/SODIUM PHOSPHATE 1 PKT POWD.PACK PO SCH ×3 (07:00→09:17)
[2019-02-16] MEDS ORDERED: MAGNESIUM SULFATE 1 gm IVPB 1 GM/100 ML BAG IV ONE (07:13)
[2019-02-16] MEDS: ENOXAPARIN 40 MG/0.4 ML SQ SCH (07:49)
[2019-02-16] MEDS: FAMOTIDINE 20 MG/2 ML VIAL IV SCH (07:49)
[2019-02-16] MEDS: NA CHLORIDE 0.9% 1,000 ML IV SCH ×3 (11:03→22:13)
--- NOTE | 2019-02-16 12:13 | P.PN ---
Subjective Date of Service: 02/16/19 Chief Complaint: s/p CRPP right hip Subjective: Ambulating, Improving, Working w/ PT pain controlled Physical Examination - Vital Signs Temperature: 98.5 F Blood Pressure: 142/70 Pulse: 93 Respirations: 17 Pulse Ox (%): 93 - Physical Exam General: Alert, In no apparent distress Musculoskeletal: Other (LLE: dressing in place; no significant LLE swelling; NVI distally) Assessment And Plan - Plan Igor is an 79 yo female s/p CRPP left femoral neck fracture POD#2 -PT to mobilize; TDWB LLE -d/c castro -lovenox for DVT prophylaxis -await inpatient rehab acceptance
[2019-02-16] MEDS: TRAMADOL HCL 50 MG TAB PO PRN ×2 (16:57→22:14)
[2019-02-16] MEDS: CEFTRIAXONE/SWI 1gm 1 GM/10 ML SYR IV SCH (17:00)
[2019-02-16] MEDS: ALPRAZOLAM 0.5 MG TABLET PO PRN (22:14)
[2019-02-17 06:57] LABS: BUN Blood Urea Nitrogen 10 mg/dL (7-18); Bicarbonate 24 mmol/L (21-32); Glucose Level 99 mg/dL (74-106); Magnesium 2.2 mg/dL (1.8-2.4); Phosphorus 1.9 mg/dL (2.5-4.9); Potassium 3.7 mmol/L (3.5-5.1); Sodium Level 138 mmol/L (136-145)
[2019-02-17] MEDS: NA CHLORIDE 0.9% 1,000 ML IV SCH ×2 (07:03→17:03)
[2019-02-17] MEDS: FAMOTIDINE 20 MG/2 ML VIAL IV SCH (09:12)
[2019-02-17] MEDS: ENOXAPARIN 40 MG/0.4 ML SQ SCH (09:12)
--- NOTE | 2019-02-17 13:25 | P.PN ---
Subjective Date of Service: 02/17/19 Chief Complaint: s/p CRPP right hip Subjective: Ambulating, Improving, Working w/ PT pain controlled; will be going to inpatient rehab today Physical Examination - Vital Signs Temperature: 97.3 F Blood Pressure: 127/61 Pulse: 72 Respirations: 18 Pulse Ox (%): 96 - Physical Exam General: Alert, In no apparent distress Musculoskeletal: Other (LLE: dressing with minimal sanguinous drainge; minimal swelling; NVI distally) Assessment And Plan - Plan Igor is an 79 yo female s/p CRPP left femoral neck fracture POD#3 -PT to mobilize; TDWB LLE -lovenox for DVT prophylaxis -likely transfer to inpatient rehab today -d/c luzmaria in 2 weeks
--- NOTE | 2019-02-17 18:13 | PN ---
Subjective: Patient continues to do well, clinically stable. Objective: Vital Signs: Blood pressure 127/60, pulse 70, temperature 97.3. Heart: Regular rate and rhythm. Chest: Clear to auscultation. Abdomen: Soft, benign. Neurologic: Alert, oriented, intact. Extremities: No edema, no cyanosis. Peripheral pulses are felt. Assessment/plan: Status post femur reconstruction surgery after a fall, which caused the fracture. Patient done well after surgery on her left femur. We will go ahead and continue current treatment. She is in need for rehab for ambulation. OT and PT at the fifth floor here is full in this hospital , so social psychologist are trying to find an SNF with physical therapy program, so we can discharge the patient. Meanwhile, continue current treatment. MFS/MODL Voice ID: [id number] Report ID: [id number]
[2019-02-17] MEDS: CEFTRIAXONE/SWI 1gm 1 GM/10 ML SYR IV SCH (18:45)
[2019-02-17] MEDS: ALPRAZOLAM 0.5 MG TABLET PO PRN (20:23)
[2019-02-17] MEDS: TRAMADOL HCL 50 MG TAB PO PRN (20:23)
[2019-02-18] MEDS: ENOXAPARIN 40 MG/0.4 ML SQ SCH (09:04)
[2019-02-18] MEDS: FAMOTIDINE 20 MG/2 ML VIAL IV SCH (09:04)
[2019-02-18] MEDS: ALPRAZOLAM 0.5 MG TABLET PO PRN (15:30)
[2019-02-18] MEDS: CEFTRIAXONE/SWI 1gm 1 GM/10 ML SYR IV SCH (17:02)
[2019-02-18] MEDS ORDERED: clonazePAM 0.5 MG TAB PO PRN (20:38)
[2019-02-18] MEDS: FLUOXETINE 20 MG CAP PO SCH (21:05)
[2019-02-18] MEDS: clonazePAM 0.5 MG TAB PO SCH (21:06)
[2019-02-18] MEDS: TRAMADOL HCL 50 MG TAB PO PRN (21:06)
[2019-02-18] MEDS: PROPRANOLOL HCL 10 MG TAB PO SCH (21:07)
[2019-02-19] MEDS: clonazePAM 0.5 MG TAB PO SCH ×3 (08:11→20:44)
[2019-02-19] MEDS: PROPRANOLOL HCL 10 MG TAB PO SCH ×2 (08:11→20:44)
[2019-02-19] MEDS: FLUOXETINE 20 MG CAP PO SCH (08:12)
[2019-02-19] MEDS: ENOXAPARIN 40 MG/0.4 ML SQ SCH (08:12)
[2019-02-19] MEDS: FAMOTIDINE 20 MG/2 ML VIAL IV SCH (08:17)
[2019-02-19] MEDS ORDERED: LUBIPROSTONE 8 MCG CAP PO SCH (09:00)
[2019-02-19] MEDS ORDERED: LUBIPROSTONE 24 MCG CAP PO SCH (09:00)
[2019-02-19] MEDS: TRAMADOL HCL 50 MG TAB PO PRN (15:39)
[2019-02-19] MEDS: CEFTRIAXONE/SWI 1gm 1 GM/10 ML SYR IVP SCH (17:01)
[2019-02-19] MEDS: TRAZODONE 50 MG TABLET PO PRN (20:44)
[2019-02-20 06:51] LABS: Magnesium 2.1 mg/dL (1.8-2.4); Phosphorus 3.8 mg/dL (2.5-4.9); Potassium 3.2 mmol/L (3.5-5.1)
[2019-02-20] MEDS: clonazePAM 0.5 MG TAB PO SCH ×3 (08:11→20:28)
[2019-02-20] MEDS: PROPRANOLOL HCL 10 MG TAB PO SCH ×2 (08:11→20:30)
[2019-02-20] MEDS: ENOXAPARIN 40 MG/0.4 ML SQ SCH (08:12)
[2019-02-20] MEDS: FLUOXETINE 20 MG CAP PO SCH (08:12)
[2019-02-20] MEDS: FAMOTIDINE 20 MG/2 ML VIAL IV SCH (08:12)
[2019-02-20] MEDS ORDERED: POTASSIUM 25 MEQ EFFERV TAB PO ONE (08:18)
[2019-02-20] MEDS: hydrOXYzine HCL 25 MG TAB PO PRN (17:59)
[2019-02-20] MEDS: CEFTRIAXONE/SWI 1gm 1 GM/10 ML SYR IVP SCH (17:59)
[2019-02-20] MEDS ORDERED: POTASSIUM CL SA 10 MEQ TAB PO ONE (20:00)
[2019-02-21 05:04] LABS: BUN Blood Urea Nitrogen 7 mg/dL (7-18); Bicarbonate 30 mmol/L (21-32); Glucose Level 101 mg/dL (74-106); Potassium 3.3 mmol/L (3.5-5.1); Sodium Level 141 mmol/L (136-145)
[2019-02-21] MEDS ORDERED: POTASSIUM CL SA 10 MEQ TAB PO ONE (05:22)
[2019-02-21] MEDS: FAMOTIDINE 20 MG/2 ML VIAL IV SCH (09:00)
[2019-02-21] MEDS: PROPRANOLOL HCL 10 MG TAB PO SCH ×2 (09:00→21:38)
[2019-02-21] MEDS: ENOXAPARIN 40 MG/0.4 ML SQ SCH (09:00)
[2019-02-21] MEDS: clonazePAM 0.5 MG TAB PO SCH ×3 (09:00→21:38)
[2019-02-21] MEDS: FLUOXETINE 20 MG CAP PO SCH (09:00)
[2019-02-21] MEDS: CEFTRIAXONE/SWI 1gm 1 GM/10 ML SYR IVP SCH (18:25)
[2019-02-21] MEDS: TRAZODONE 50 MG TABLET PO PRN (21:39)
[2019-02-22] MEDS: ENOXAPARIN 40 MG/0.4 ML SQ SCH (08:13)
[2019-02-22] MEDS: clonazePAM 0.5 MG TAB PO SCH ×3 (08:13→21:20)
[2019-02-22] MEDS: FAMOTIDINE 20 MG/2 ML VIAL IV SCH (08:13)
[2019-02-22] MEDS: PROPRANOLOL HCL 10 MG TAB PO SCH ×2 (08:14→19:42)
[2019-02-22] MEDS: FLUOXETINE 20 MG CAP PO SCH (08:14)
--- NOTE | 2019-02-22 14:21 | RAD REPORT ---
EXAM DESCRIPTION: RAD - Hip Left 2 View - 02/22/2019 2:02 pm CLINICAL HISTORY: fall Pain and swelling COMPARISON: Hip Left 2 View dated 02/14/2019; Hip Left 2 View dated 02/13/2019 FINDINGS: Three compression screws are present in the proximal left femur. No evidence of acute frac ture. Skin luzmaria noted laterally. Soft tissue calcifications noted along left lateral hip/thigh reg ion. IMPRESSION: No acute finding.
[2019-02-22] MEDS: CEFTRIAXONE/SWI 1gm 1 GM/10 ML SYR IVP SCH (18:08)
[2019-02-22] MEDS: hydrOXYzine HCL 25 MG TAB PO PRN (18:50)
[2019-02-22] MEDS: TRAZODONE 50 MG TABLET PO PRN (19:34)
[2019-02-23] MEDS: clonazePAM 0.5 MG TAB PO SCH ×3 (10:48→21:01)
[2019-02-23] MEDS: PROPRANOLOL HCL 10 MG TAB PO SCH ×2 (10:48→21:01)
[2019-02-23] MEDS: FLUOXETINE 20 MG CAP PO SCH (10:48)
[2019-02-23] MEDS: ENOXAPARIN 40 MG/0.4 ML SQ SCH (10:48)
[2019-02-23] MEDS: FAMOTIDINE 20 MG/2 ML VIAL IV SCH (10:49)
[2019-02-23] MEDS: ONDANSETRON 4 MG/2 ML VIAL IV PRN (16:20)
[2019-02-23] MEDS: CEFTRIAXONE/SWI 1gm 1 GM/10 ML SYR IVP SCH (19:39)
[2019-02-23] MEDS: TRAZODONE 50 MG TABLET PO PRN (19:55)
[2019-02-24 08:32] VITALS: O2SAT 95
[2019-02-24] MEDS: clonazePAM 0.5 MG TAB PO SCH ×2 (08:44→14:02)
[2019-02-24] MEDS: FLUOXETINE 20 MG CAP PO SCH (08:44)
[2019-02-24] MEDS: ENOXAPARIN 40 MG/0.4 ML SQ SCH (08:44)
[2019-02-24] MEDS: PROPRANOLOL HCL 10 MG TAB PO SCH (08:45)
[2019-02-24] MEDS: FAMOTIDINE 20 MG/2 ML VIAL IV SCH (08:48)
--- NOTE | 2019-02-24 14:14 | PN ---
Subjective: Patient is doing well, clinically stable. Yesterday, she slipped; however, she caught h erself by the bed and she encountered no injury. She is doing well. Physical Examination: Vital Signs: Blood pressure 120/80, pulse of 70, temperature 98.7. Heart: Regular rate and rhythm. Chest: Clear to auscultation. Abdomen: Soft, nontender, benign. Bowel sounds are active. Extremities: No edema. No cyanosis. Peripheral pulses are felt. Neurologic: Alert, oriented, grossly intact. Imaging Data: Patient had left hip x-ray, showed no acute findings. Assessment And Plan: Patient is status post left femur reconstruction surgery after having a fractur e from a fall at home. She is doing well after the surgery, being on full physical therapy here at [facility] and she is cooperating well, but she still needs occupational and physical therapy to hel p her recover completely with ambulation. Her blood pressure and chronic medical illnesses are stabl e, while pending long term facility bed to be available for the patient to transfer [facility] inue her recovery with Occupational Therapy, PT and OT. Look orders. MFS/MODL Voice ID: [id number] Report ID: [id number]
[2019-02-24 17:51] VITALS: BP 98/54; TEMP 98
== END 2019-02-24 17:49 | DRG 482 ==
LOC: ER 19:53 → ERHOLD 20:43 → 4TH 22:26 → 2ND 02-20 15:05
PROVIDERS: ADMIT Internal Medicine; ATTEND Internal Medicine
PROC: 0QS734Z Reposition Left Upper Femur with Internal Fixation Device, Percutaneous Approach (ICD-10-PCS; principal; 2019-02-14 13:00)
DX: S72.012A Unspecified intracapsular fracture of left femur, initial encounter for closed fracture (principal); I10 Essential (primary) hypertension; E78.5 Hyperlipidemia, unspecified; H35.30 Unspecified macular degeneration; F41.8 Other specified anxiety disorders; W01.0XXA Fall on same level from slipping, tripping and stumbling without subsequent striking against object, initial encounter; Y93.9 Activity, unspecified; Y92.9 Unspecified place or not applicable
CPT/HCPCS: 36415; 71045; 72170; 73530; 80048; 80076; 81003; 81015; 83735; 83880; 84100; 84132; 84484; 85014; 85018; 85025; 85610; 86850; 86900; 86901; 87086; 87088; 93005; 96361; 96374; 96375; 97110; 97112; 97116; 97161; 97530; 97542; 99285; J0690; J0696; J1650; J2250; J2370; J2405; J2704; J3010; J3475; J7030

== ENCOUNTER 2019-11-10 20:12 | Emergency (ER) | payer OTHER ==
--- OUTSIDE RECORDS SUMMARY | 2019-11-10 20:14 | XMS REPORT | Clinical Summary ---
:1940 Author Organization [facility] Address [address] [place] [id number] Care Team Providers Name Role Phone Pcp, Patient Does Not Have A Primary Care Provider +[id number] 0-0000 Allergies Active Allergy Reactions Severity Noted Date Comments Clarithromycin Nausea Only Low 08/19/2018 Medications Medication Sig Dispensed Refills Start Date End Date Status diclofenac-misoprostol Take 1 Tab by 0 Active (ARTHROTEC 75) 75-200 mouth 2 (two) mg-mcg per tablet times daily. pravastatin Take 40 mg by 0 Acti ve (PRAVACHOL) 40 mg mouth at bedtime. tablet rivastigmine 4.6 mg/24 Apply 1 Patch to 30 Patch 1 08/19/2018 Active hr patchIndications: skin daily. Late onset Alzheimer's disease without behavioral disturbance FLUoxetine 20 mg Take 3 capsules 90 capsule 2 08/01/2019 Active capsuleIndications: by mouth daily. DARIN (generalized anxiety disorder) hydrOXYzine 25 mg Take 1 capsule by 60 capsule 1 08/01/2019 Active capsuleIndications: mouth 2 (two) DARIN (generalized times daily as anxiety disorder) needed for Anxiety. clonazePAM 0.5 mg TAKE 1 TABLET BY 90 tablet 0 11/10/2019 Active tabletIndications: DARIN MOUTH THREE TIMES (generalized anxiety DAILY disorder) Active Problems Problem Noted Date Depressive disorder 06/09/2013 Overview: ICD10 Diagnosis Term Permit Technician Utility Social History Tobacco Use Types Packs/Day Years Used Date Never Smoker Smokeless Tobacco: Never Used Alcohol Use Drinks/Week oz/Week Comments No Sex Assigned at Date Recorded Not on file Last Filed Vital Signs Vital Sign Reading Time Taken Comments Blood Pressure 126/77 05/04/2019 4:42 PM STAFF DEVELOPMENT COORDINATOR RN Pulse 73 05/04/2019 4:42 PM STAFF DEVELOPMENT COORDINATOR RN Temperature 36.6 C (97.8 F) 08/19/2018 2:48 PM CDT Respiratory Rate 16 05/04/2019 4:11 PM STAFF DEVELOPMENT COORDINATOR RN Oxygen Saturation - - Inhaled Oxygen Concentration - - Weight 53.5 kg (118 lb) 11/29/2018 2:10 PM CDT Height 162.6 cm (5' 4") 05/04/2019 4:11 PM STAFF DEVELOPMENT COORDINATOR RN Body Mass Index 20.25 11/29/2018 2:10 PM CDT Plan of Treatment Health Maintenance Due Date Last Done Comments DTaP,Tdap,and Td Vaccines (1 - Tdap) 1959 Zoster Recombinant Vaccine (SHINGRIX) (1 1989 of 2) Medicare Wellness Visit 02/15/2004 Osteoporosis Screening 02/15/2004 PNEUMOCOCCAL VACCINES 65+ (1 of 1 - 02/15/2004 PPSV23) INFLUENZA VACCINE (#1) 2019 Depression Screening 08/02/2020 08/03/2019, 08/03/2019 Results Not on filefrom Last 3 Months Insurance Payer Benefit Plan Subscriber ID Effective Phone Address Typ e / Group Dates [employer]ETNA - AETNA [id number] 2013-Prese P O BOX Medic are Adv MANAGED MEDICARE ADV nt [id number] [place] [address]
--- OUTSIDE RECORDS SUMMARY | 2019-11-10 20:14 | XMS REPORT | Continuity of Care Document ---
:1940 Author Organization [facility] t Address [address] [place] [address] [place] [id number] Care Team Providers Name Role Phone Unavailable Unavailable Unavailable Problems This patient has no known problems. Allergies, Adverse Reactions, Alerts This patient has no known allergies or adverse reactions. Medications This patient has no known medications. Procedures This patient has no known procedures. Results This patient has no known results.
[2019-11-10 20:56] LABS: Absolute Lymphocytes (CBC) 1.1 K/uL (0.7-4.9); Basophils % 0.4 % (0-1.3); Lymphocytes % 11.1 % (15.3-44.8); MPV 8.3 fL (7.6-11.3); RBC Red Blood Cell Count 5.29 M/uL (3.86-4.86)
[2019-11-10 20:58] LABS: Protime INR 1.07
[2019-11-10] MEDS ORDERED: ONDANSETRON 4 MG/2 ML VIAL ONE (21:09)
[2019-11-10 21:23] LABS: ALT/SGPT 19 U/L (12-78); AST/SGOT 16 U/L (15-37); Albumin 4.2 g/dL (3.4-5.0); Alkaline Phosphatase 95 U/L (45-117); BUN Blood Urea Nitrogen 19 mg/dL (7-18); Bicarbonate 19 mmol/L (21-32); Bilirubin Direct 0.2 mg/dL (0-0.2); Bilirubin Total 0.7 mg/dL (0.2-1.0); Glucose Level 133 mg/dL (74-106); Magnesium 1.9 mg/dL (1.8-2.4); NT PRO-BNP 170 pg/mL (<450); Protein, Total 7.7 g/dL (6.4-8.2); Sodium Level 142 mmol/L (136-145); Troponin (Emerg Dept Use Only) < 0.02 ng/mL (0.0-0.045)
[2019-11-10] MEDS ORDERED: POTASSIUM 25 MEQ EFFERV TAB ONE (21:45)
[2019-11-10] MEDS ORDERED: NA CHLORIDE 0.9% 1,000 ML ONE (21:45)
--- NOTE | 2019-11-10 22:49 | EDPHYS ---
Physician Documentation [facility] Name: Lianne Greco Age: 79 yrs Sex: Female : 1940 Arrival Date: 11/10/2019 Time: 20:15 Bed 20 Private MD: ED Physician Vasu Lozano HPI: 11/09 22:12 This 79 yrs old Female presents to ER via Wheelchair with complaints of kb Nausea, Altered Mental Status. 22:12 The patient presents to the emergency department with nausea, that is moderate. Onset: kb The symptoms/episode began/occurred yesterday. Possible causes: unknown. The symptoms are aggravated by nothing. The symptoms are alleviated by nothing. Associated signs and symptoms: Pertinent positives: nausea, Pertinent negatives: abdominal pain, anorexia, belching, constipation, diarrhea, dysuria, fever, flatulence, GI bleeding, hematuria, vaginal discharge, vomiting. Severity of symptoms: At their worst the symptoms were moderate in the emergency department the symptoms are unchanged. The patient has not experienced similar symptoms in the past. The patient has not recently seen a physician. Pt reports rhinorrhea, congestion, and nausea since yesterday. Denies fever, abd pain, chest pain, shortness or breath or cough. Historical: - Allergies: 20:28 Biaxin; jd3 20:28 Clarithromycin; jd3 20:28 Morphine (Vomiting); jd3 - PMHx: 20:28 Depression; macular degeneration; Migraines; Anxiety; jd3 - PSHx: 20:28 right hip surgery; sinus surgery; tonsilectomy; Bladder suspension; jd3 - Immunization history:: Adult Immunizations up to date. - Social history:: Smoking status: Patient denies any tobacco usage or history of. ROS: 22:11 Constitutional: Negative for fever, chills, and weight loss, Cardiovascular: Negative kb for chest pain, palpitations, and edema, Respiratory: Negative for shortness of breath, cough, wheezing, and pleuritic chest pain, Back: Negative for injury and pain, MS/Extremity: Negative for injury and deformity, Skin: Negative for injury, rash, and discoloration, Neuro: Negative for headache, weakness, numbness, tingling, and seizure. 22:11 ENT: Positive for rhinorrhea, sinus congestion. 22:11 Abdomen/GI: Positive for nausea, Negative for abdominal pain, vomiting, diarrhea. Exam: 22:11 Constitutional: This is a well developed, well nourished patient who is awake, alert, kb and in no acute distress. Head/Face: Normocephalic, atraumatic. Chest/axilla: Normal chest wall appearance and motion. Nontender with no deformity. No lesions are appreciated. Cardiovascular: Regular rate and rhythm with a normal S1 and S2. No gallops, murmurs, or rubs. Normal PMI, no JVD. No pulse deficits. Respiratory: Lungs have equal breath sounds bilaterally, clear to auscultation and percussion. No rales, rhonchi or wheezes noted. No increased work of breathing, no retractions or nasal flaring. Abdomen/GI: Soft, non-tender, with normal bowel sounds. No distension or tympany. No guarding or rebound. No evidence of tenderness throughout. Skin: Warm, dry with normal turgor. Normal color with no rashes, no lesions, and no evidence of cellulitis. MS/ Extremity: Pulses equal, no cyanosis. Neurovascular intact. Full, normal range of motion. Neuro: Awake and alert, GCS 15, oriented to person, place, time, and situation. Cranial nerves II-XII grossly intact. Motor strength 5/5 in all extremities. Sensory grossly intact. Cerebellar exam normal. Normal gait. Vital Signs: 20:28 BP 141 / 104; Pulse 96; Resp 18; Temp 98.0(TE); Pulse Ox 98% on R/A; Weight 50.8 kg jd3 (R); Height 5 ft. 5 in. (165.10 cm) (R); Pain 0/10; 21:15 BP 178 / 90; Pulse 83; Resp 16; Pulse Ox 100% on R/A; jb4 22:00 BP 184 / 87; Pulse 79; Resp 16; Pulse Ox 100% on R/A; jb4 22:36 BP 163 / 91; Pulse 82; Resp 16; Pulse Ox 100% on R/A; jb4 20:28 Body Mass Index 18.64 (50.80 kg, 165.10 cm) jd3 MDM: 20:34 Patient medically screened. kb 22:09 Data reviewed: vital signs, nurses notes. Data interpreted: Pulse oximetry: on room air kb is 100 %. Interpretation: normal. Counseling: I had a detailed discussion with the patient and/or guardian regarding: the historical points, exam findings, and any diagnostic results supporting the discharge/admit diagnosis, lab results, radiology results, the need for outpatient follow up, a family practitioner, to return to the emergency department if symptoms worsen or persist or if there are any questions or concerns that arise at home. ED course: Daughter called reporting that pt has taken clonazepam TID for years and recently hid the medication and forgot where she put it. STates pt has been off of the medication for 5-7 days. . 22:11 Data reviewed: I have discussed the patient's presentation/case with the attending Emergency Department Physician; and as a result, I will discharge patient. 11/10 03:27 Differential diagnosis: Nonspecific abd pain, gastritis, cholecystitis. Special tw4 discussion:. 11/09 20:37 Order name: Basic Metabolic Panel; Complete Time: 21:23 kb 11/09 20:37 Order name: CBC with Diff; Complete Time: 21:05 kb 11/09 20:37 Order name: LFT's; Complete Time: 21:23 kb 11/09 20:37 Order name: Magnesium; Complete Time: 21:23 kb 11/09 20:37 Order name: NT PRO-BNP; Complete Time: 21:23 kb 11/09 20:37 Order name: PT-INR; Complete Time: 21:05 kb 11/09 20:37 Order name: Troponin (emerg Dept Use Only); Complete Time: 21:23 kb 11/09 20:37 Order name: XRAY Chest (1 view) 11/09 22:44 Order name: Urine Microscopic Only; Complete Time: 23:20 kb 11/09 22:50 Order name: Urine Dipstick--Ancillary (enter results); Complete Time: 23:20 ar5 11/09 23:02 Order name: Urine Culture EDMS 11/09 20:37 Order name: EKG; Complete Time: 20:38 kb 11/09 20:37 Order name: Cardiac monitoring; Complete Time: 20:49 kb 11/09 20:37 Order name: EKG - Nurse/Tech; Complete Time: 20:49 kb 11/09 20:37 Order name: IV Saline Lock; Complete Time: 20:49 kb 11/09 20:37 Order name: Labs collected and sent; Complete Time: 20:49 kb 11/09 20:37 Order name: O2 Per Protocol; Complete Time: 20:49 kb 11/09 20:37 Order name: O2 Sat Monitoring; Complete Time: 20:49 kb 11/09 21:31 Order name: Urine Dipstick-Ancillary (obtain specimen); Complete Time: 22:47 kb Administered Medications: 11/09 21:04 Drug: Zofran (Ondansetron) 4 mg Route: IVP; Site: right forearm; jb4 21:30 Follow up: Response: No adverse reaction; Nausea is decreased jb4 21:31 Not Given (Other Intervention Used): Potassium Chloride 40 mEq PO once jb4 21:47 Drug: NS 0.9% 1000 ml Route: IV; Rate: 1000 ml; Site: right forearm; jb4 22:45 Follow up: Response: No adverse reaction; IV Status: Completed infusion jb4 21:47 Drug: Potassium Effervescent Tablet 50 mEq Route: PO; jb4 22:15 Follow up: Response: No adverse reaction jb4 22:50 Drug: Rocephin 1 grams Route: IV; Rate: calculated rate; Site: right forearm; jb4 22:54 Follow up: Response: No adverse reaction; IV Status: Completed infusion; IV Intake: [id number] Disposition: 11/10 03:28 Co-signature as Attending Physician, Vasu Lozano MD I agree with the assessment and 4 plan of care. Disposition: 11/10/19 22:48 Discharged to Home. Impression: Nausea, Volume depletion, Hypokalemia, Urinary tract infection, site not specified. - Condition is Stable. - Discharge Instructions: Urinary Tract Infection, Adult, [id number], Dehydration, Adult, Gysn-ew-Flei, Nausea, Adult, [id number]-[id number]. - Prescriptions for Zofran 4 mg Oral Tablet - take 1 tablet by ORAL route every 6 hours As needed; 20 tablet. Augmentin 875- 125 mg Oral Tablet - take 1 tablet by ORAL route every 12 hours for 10 days; 20 tablet. - Medication Reconciliation Form, Thank You Letter, Antibiotic Education, Prescription Opioid Use form. - Follow up: Emergency Department; When: As needed; Reason: Worsening of condition. Follow up: Private Physician; When: 2 - 3 days; Reason: Recheck today's complaints, Continuance of care, Re-evaluation by your physician. Signatures: Dispatcher [employer] EDShannon Jaramillo, EXPEDITION SUPERVISOR-C EXPEDITION SUPERVISOR-Ckb Slim Benz, RN RN jb4 Koko Schulz RN RN jd3 Vasu Lozano MD MD tw4 Corrections: (The following items were deleted from the chart) 11/09 23:53 22:48 11/10/2019 22:48 Discharged to Home. Impression: Nausea; Volume depletion; jb4 Hypokalemia; Urinary tract infection, site not specified. Condition is Stable. Discharge Instructions: Dehydration, Adult, [id number], Nausea, Adult, [id number]-[id number]-Hwqb. Prescriptions for Zofran 4 mg Oral Tablet - take 1 tablet by ORAL route every 6 hours As needed; 20 tablet. and Forms are Medication Reconciliation Form, Thank You Letter, Antibiotic Education, Prescription Opioid Use. Follow up: Emergency Department; When: As needed; Reason: Worsening of condition. Follow up: Private Physician; When: 2 - 3 days; Reason: Recheck today's complaints, Continuance of care, Re-evaluation by your physician. kb
--- NOTE | 2019-11-10 22:49 | ER ---
Nurse's Notes [facility] Name: Lianne Greco Age: 79 yrs Sex: Female : 1940 Arrival Date: 11/10/2019 Time: 20:15 Bed 20 Private MD: Diagnosis: Nausea;Volume depletion;Hypokalemia;Urinary tract infection, site not specified Presentation: 11/09 20:23 Chief complaint: Spouse and/or significant other states: "She has been seeing a jd3 psychologist in [facility] and was on this medication. her doctor had decrease the dose recently. somehow or another she has misplaced her leftover pills after we changed her dose. over the last couple of days she has had very little to eat or drink and a lot of nausea. she has also been confused and saying off the wall stuff that don't make since. I am thinking she is just suffering from the lack of her medication she is supposed to take.". Coronavirus screen: At this time, the client does not indicate any symptoms associated with coronavirus-19. Ebola Screen: Patient negative for fever greater than or equal to 101.5 degrees Fahrenheit, and additional compatible Ebola Virus Disease symptoms. Initial Sepsis Screen: Does the patient meet any 2 criteria? No. Patient's initial sepsis screen is negative. Does the patient have a suspected source of infection? No. Patient's initial sepsis screen is negative. Risk Assessment: Do you want to hurt yourself or someone else? Patient reports no desire to harm self or others. Onset of symptoms was November 08, 2019. 20:23 Method Of Arrival: Wheelchair jd3 20:23 Acuity: TROY 2 jd3 Historical: - Allergies: 20:28 Biaxin; jd3 20:28 Clarithromycin; jd3 20:28 Morphine (Vomiting); jd3 - PMHx: 20:28 Depression; macular degeneration; Migraines; Anxiety; jd3 - PSHx: 20:28 right hip surgery; sinus surgery; tonsilectomy; Bladder suspension; jd3 - Immunization history:: Adult Immunizations up to date. - Social history:: Smoking status: Patient denies any tobacco usage or history of. Screenin:30 Abuse screen: Denies threats or abuse. Nutritional screening: No deficits noted. jb4 Tuberculosis screening: No symptoms or risk factors identified. Fall Risk None identified. Assessment: 20:30 General: Appears in no apparent distress. uncomfortable, Behavior is calm, cooperative, jb4 appropriate for age. Pain: Denies pain. Neuro: Level of Consciousness is awake, alert, obeys commands, Oriented to person, place, time, situation. Cardiovascular: Respiratory: Airway is patent Respiratory effort is even, unlabored, Respiratory pattern is regular, symmetrical. GI: Abdomen is flat, non-distended, Reports nausea. : No signs and/or symptoms were reported regarding the genitourinary system. EENT: No signs and/or symptoms were reported regarding the EENT system. Derm: Skin is intact, Skin is pink, warm \\T\\ dry. Musculoskeletal: Circulation, motion, and sensation intact. Range of motion: intact in all extremities. 21:25 Reassessment: Patient appears in no apparent distress at this time. Patient and/or jb4 family updated on plan of care and expected duration. Pain level reassessed. Patient is alert, oriented x 3, equal unlabored respirations, skin warm/dry/pink. 21:50 Reassessment: Patient and/or family updated on plan of care and expected duration. Pain jb4 level reassessed. Patient is alert, oriented x 3, equal unlabored respirations, skin warm/dry/pink. Spoke with patients daughter, Updated her on POC, daughter informed me that pt had been taking Clonazepam for years, and recently her psychiatrist wanted to wean her off so the PT hid them and forgot where she had left them. She has not had them for 5-7 days. Provider notified. 23:00 Reassessment: Patient appears in no apparent distress at this time. Patient and/or jb4 family updated on plan of care and expected duration. Pain level reassessed. Patient is alert, oriented x 3, equal unlabored respirations, skin warm/dry/pink. D/c pending ride home. 23:51 Reassessment: Patient appears in no apparent distress at this time. Patient and/or jb4 family updated on plan of care and expected duration. Pain level reassessed. Patient is alert, oriented x 3, equal unlabored respirations, skin warm/dry/pink. PT and verbalized understanding of d/c and follow up instructions. Denies questions or concerns. Assisted to Daughters vehicle via wheel chair. Vital Signs: 20:28 BP 141 / 104; Pulse 96; Resp 18; Temp 98.0(TE); Pulse Ox 98% on R/A; Weight 50.8 kg jd3 (R); Height 5 ft. 5 in. (165.10 cm) (R); Pain 0/10; 21:15 BP 178 / 90; Pulse 83; Resp 16; Pulse Ox 100% on R/A; jb4 22:00 BP 184 / 87; Pulse 79; Resp 16; Pulse Ox 100% on R/A; jb4 22:36 BP 163 / 91; Pulse 82; Resp 16; Pulse Ox 100% on R/A; jb4 20:28 Body Mass Index 18.64 (50.80 kg, 165.10 cm) jd3 ED Course: 20:15 Patient arrived in ED. cf2 20:26 Triage completed. jd3 20:31 Slim Benz, RN is Primary Nurse. jb4 20:31 Arm band placed on. jd3 20:31 Patient has correct armband on for positive identification. Bed in low position. Call jb4 light in reach. Side rails up X 1. Pulse ox on. NIBP on. 20:31 Inserted saline lock: 20 gauge in right antecubital area, using aseptic technique. jb4 Blood collected. 20:34 Shannon Fair FNP-C is PHCP. kb 20:34 Vasu Lozano MD is Attending Physician. kb 21:20 XRAY Chest (1 view) In Process Unspecified. EDMS 23:24 Removal of peripheral IV. Catheter intact, dressing applied. jp3 23:24 No provider procedures requiring assistance completed. IV discontinued, intact, jb4 bleeding controlled, No redness/swelling at site. Pressure dressing applied. Administered Medications: 21:04 Drug: Zofran (Ondansetron) 4 mg Route: IVP; Site: right forearm; jb4 21:30 Follow up: Response: No adverse reaction; Nausea is decreased jb4 21:31 Not Given (Other Intervention Used): Potassium Chloride 40 mEq PO once jb4 21:47 Drug: NS 0.9% 1000 ml Route: IV; Rate: 1000 ml; Site: right forearm; jb4 22:45 Follow up: Response: No adverse reaction; IV Status: Completed infusion jb4 21:47 Drug: Potassium Effervescent Tablet 50 mEq Route: PO; jb4 22:15 Follow up: Response: No adverse reaction jb4 22:50 Drug: Rocephin 1 grams Route: IV; Rate: calculated rate; Site: right forearm; jb4 22:54 Follow up: Response: No adverse reaction; IV Status: Completed infusion; IV Intake: [id number] Intake: 22:54 IV: 10ml; Total: 10ml. jb4 Outcome: 22:48 Discharge ordered by MD. carter 23:52 Discharged to home via wheelchair, with family. jb4 23:52 Condition: stable 23:52 Discharge instructions given to patient, family, Instructed on discharge instructions, follow up and referral plans. medication usage, Demonstrated understanding of instructions, follow-up care, medications, Prescriptions given X 2. 23:53 Patient left the ED. jb4 Signatures: Dispatcher [employer] EDMS Shannon Fair, TIMA MILNER-Slim Houston RN RN jb4 Koko Schulz RN RN jd3 Naga Khan jp3 Thomas Gonzalez cf2 Corrections: (The following items were deleted from the chart) 20:26 20:23 Onset of symptoms was November 10, 2019 [place] [id number] 20:38 20:23 Chief complaint: Spouse and/or significant other states: "She has been [facility] in [facility] and was on this medication. her doctor had decrease the dose recently. somehow or another she has misplaced her leftover pills. over the last couple of days she has had very little to eat or drink and a lot of nausea. I am thinking she is just suffering from the lack of her medication she is supposed to take." j 23:52 23:00 Reassessment: Patient appears in no apparent distress at this time. Patient jb4 and/or family updated on plan of care and expected duration. Pain level reassessed. Patient is alert, oriented x 3, equal unlabored respirations, skin warm/dry/pink. jb4
[2019-11-10 22:52] LABS: Urine Blood 1+ (NEG); Urine Glucose NEGATIVE (NEG); Urine Protein 2+ (NEG); Urine pH 6.5 (5.0-7.0)
[2019-11-10] MEDS ORDERED: CEFTRIAXONE/SWI 1gm 1 GM/10 ML SYR ONE (22:59)
[2019-11-10 23:01] LABS: Urine Bacteria LOADED /HPF (<20); Urine Culture Reflex Order REFLEXED; Urine Mucus 1+ /HPF (NONE SEEN)
[2019-11-11 00:27] VITALS: TEMP 98
[2019-11-11 00:28] VITALS: O2SAT 100
[2019-11-11 00:31] VITALS: BP 163/91
--- NOTE | 2019-11-11 09:23 | RAD REPORT ---
EXAM DESCRIPTION: RAD - Chest Single View - 11/10/2019 9:21 pm CLINICAL HISTORY: MALAISE, altered mental status COMPARISON: Portable January 2019 TECHNIQUE: AP portable chest image was obtained 11/10/2019 9:21 pm . FINDINGS: No mass, consolidation, failure or volume overload findings. Chronic interstitial pattern matches the prior study. Heart and vasculature are normal. No measurable pleural effusion and no pneu mothorax. No acute bone finding. 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 Patient again noted to have pr onounced scoliosis. No acute aortic findings suspected. IMPRESSION: Chronic interstitial lung pattern with no acute cardiopulmonary finding. No significant change from comparison.
--- NOTE | 2019-11-12 09:47 | EKG ---
Test Date: 2019-11-10 Test Time: 20:47:00 Investigative Research Specialist: LORENZA MEASUREMENT RESULTS: Intervals: Rate: 87 [place]: 126 QRSD: 82 QT: 406 QTc: 488 [place]: P: 70 [place]: 126 QRS: -6 T: 64 INTERPRETIVE STATEMENTS: Normal sinus rhythm Possible Left atrial enlargement Nonspecific ST abnormality Abnormal ECG Compared to ECG 02/13/2019 21:05:49 Prolonged QT interval no longer present ST (T wave) deviation still present Electronically Signed On 11-12-19 09:44:35 CDT by Cam Rocha
== END 2019-11-10 23:53 | disposition home or self-care (01) ==
LOC: ER 20:12
DX: E86.9 Volume depletion, unspecified (principal); E87.6 Hypokalemia; N39.0 Urinary tract infection, site not specified; Z88.6 Allergy status to analgesic agent; Z88.1 Allergy status to other antibiotic agents; Z88.5 Allergy status to narcotic agent
CPT/HCPCS: 96361; 93005; 87088; 85025; 87086; 80048; 36415; 83735; 85610; 80076; 84484; 83880; 71045; 96375; 96374; 99284; J0696; J7030; J2405; 81003; 81015

== ENCOUNTER 2019-12-06 15:53 | Emergency (ER) | payer OTHER ==
[2019-12-06] MEDS ORDERED: MEPERIDINE HCL 50 MG/ML ONE ×2 (16:24→17:15)
[2019-12-06] MEDS ORDERED: dexAMETHasone 4 MG/ML VIAL ONE (16:25)
[2019-12-06] MEDS ORDERED: NA CHLORIDE 0.9% 1,000 ML ONE (16:25)
--- NOTE | 2019-12-06 16:43 | RAD REPORT ---
EXAM DESCRIPTION: CT - Head Brain Wo Cont - 12/06/2019 4:28 pm CLINICAL HISTORY: HEADACHE Headache, drowsiness COMPARISON: Facial Bones W/ Mpr dated 01/21/2016; Ct Stroke Brain Wo Cont dated 01/21/2016 TECHNIQUE: All CT scans are performed using dose optimization technique as appropriate and may inclu de automated exposure control or mA/KV adjustment according to patient size. FINDINGS: No intracranial hemorrhage, hydrocephalus or extra-axial fluid collection.Advanced brain a trophy.No areas of brain edema or evidence of midline shift. The paranasal sinuses and mastoids are clear. The calvarium is intact. IMPRESSION: No acute intracranial abnormality.
--- NOTE | 2019-12-06 17:16 | ER ---
Nurse's Notes [facility] Name: Lianne Greco Age: 79 yrs Sex: Female : 1940 Arrival Date: 12/06/2019 Time: 15:55 Bed 14 Private MD: Landry Trotter F Diagnosis: Migraine Presentation: 12/05 15:57 Note pt not in exam room at this time, in triage room. tw2 16:00 Chief complaint: Patient states: Headache R side, R eye radiates to the R side of neck ca1 x 3 days. Hx of migraines but reports this is the worse. Denies N/V/Dizziness/Vision problems. Coronavirus screen: Client denies travel out of the [place] in the last 14 days. At this time, the client does not indicate any symptoms associated with coronavirus-19. Ebola Screen: Patient negative for fever greater than or equal to 101.5 degrees Fahrenheit, and additional compatible Ebola Virus Disease symptoms Patient denies exposure to infectious person. Patient denies travel to an Ebola-affected area in the 21 days before illness onset. No symptoms or risks identified at this time. Initial Sepsis Screen: Does the patient meet any 2 criteria? No. Patient's initial sepsis screen is negative. Does the patient have a suspected source of infection? No. Patient's initial sepsis screen is negative. Risk Assessment: Do you want to hurt yourself or someone else? Patient reports no desire to harm self or others. Onset of symptoms was December 06, 2019. 16:00 Method Of Arrival: Ambulatory ca1 16:00 Acuity: TROY 3 ca1 Triage Assessment: 16:20 Headache History: The patient has had previous headaches and this one is different than tw2 previous episodes, and this one is more severe than previous episodes. General: Appears in no apparent distress. slender, well groomed, Behavior is calm, cooperative, appropriate for age. Pain: Complains of pain in headache and right neck pain Pain currently is 8 out of 10 on a pain scale. Pain began 2-3 days ago. Also complains of no other associated symptoms. EENT: No signs and/or symptoms were reported regarding the EENT system. Neuro: Level of Consciousness is awake, alert, obeys commands, Oriented to person, place, time, situation. Cardiovascular: Heart tones S1 S2 Patient's skin is warm and dry. Respiratory: Airway is patent Respiratory effort is even, unlabored, Respiratory pattern is regular, symmetrical, Breath sounds are clear bilaterally. GI: No signs and/or symptoms were reported involving the gastrointestinal system. Abdomen is flat, Bowel sounds present X 4 quads. : No signs and/or symptoms were reported regarding the genitourinary system. Derm: No signs and/or symptoms reported regarding the dermatologic system. Skin is intact, is healthy with good turgor, is thin, Skin is dry. Musculoskeletal: Range of motion: intact in all extremities. Historical: - Allergies: 16:07 Biaxin; ca1 16:07 Clarithromycin; ca1 16:07 Morphine (Vomiting); ca1 - PMHx: 16:07 Anxiety; Depression; macular degeneration; Migraines; ca1 - PSHx: 16:07 right hip surgery; sinus surgery; tonsilectomy; Bladder suspension; ca1 - Immunization history:: Adult Immunizations up to date. - Social history:: Smoking status: Patient denies any tobacco usage or history of. - Family history:: not pertinent. - Hospitalizations: : No recent hospitalization is reported. Screenin:26 Abuse screen: Denies threats or abuse. Nutritional screening: No deficits noted. tw2 Tuberculosis screening: No symptoms or risk factors identified. Fall Risk Secondary diagnosis (15 points) impaired mobility. Assessment: 16:20 Reassessment: see triage assessment. tw2 16:44 Reassessment: Patient appears in no apparent distress at this time. No changes from tw2 previously documented assessment. Patient and/or family updated on plan of care and expected duration. Pain level reassessed. Patient is alert, oriented x 3, equal unlabored respirations, skin warm/dry/pink. 17:34 Reassessment: Patient appears in no apparent distress at this time. No changes from tw2 previously documented assessment. Patient and/or family updated on plan of care and expected duration. Pain level reassessed. Patient is alert, oriented x 3, equal unlabored respirations, skin warm/dry/pink. Patient states feeling better. Patient states symptoms have improved. Vital Signs: 16:00 BP 156 / 94; Pulse 78; Resp 16 S; Temp 97.2(TE); Pulse Ox 100% on R/A; Weight 50.8 kg ca1 (R); Height 5 ft. 5 in. (165.10 cm) (R); Pain 8/10; 16:44 BP 153 / 77; Pulse 73; Resp 17; Pulse Ox 100% on R/A; tw2 17:16 BP 136 / 84; Pulse 69; Resp 17; Pulse Ox 99% on R/A; Pain 0/10; tw2 17:20 Pain 0/10; tw2 16:00 Body Mass Index 18.64 (50.80 kg, 165.10 cm) ca1 [place] Coma Score: 17:15 Eye Response: spontaneous(4). Verbal Response: oriented(5). Motor Response: obeys rn commands(6). Total: 15. ED Course: 15:55 Patient arrived in ED. ag5 15:55 Landry Trotter MD is Private Physician. ag5 15:56 Rajni Portillo, JENNIFER is Primary Nurse. tw2 16:01 Dimas Jenkins MD is Attending Physician. rn 16:02 Placed in gown. Bed in low position. Call light in reach. library monitor on. Pulse ox tw2 on. NIBP on. Warm blanket given. 16:06 Triage completed. ca1 16:07 Arm band placed on right wrist. ca1 16:20 Missed attempt(s): 20 gauge in right antecubital area. Bleeding controlled, band aid tw2 applied, catheter tip intact. Inserted saline lock: 22 gauge in right wrist, using aseptic technique. 16:29 CT Head Brain wo Cont In Process Unspecified. EDMS 17:34 No provider procedures requiring assistance completed. IV discontinued, intact, tw2 bleeding controlled, No redness/swelling at site. Pressure dressing applied. Administered Medications: 16:20 Drug: NS 0.9% 1000 ml Route: IV; Rate: 1000 ml; Site: right wrist; tw2 17:34 Follow up: Response: No adverse reaction; IV Status: Completed infusion; IV Intake: tw2 1000ml 16:20 Drug: Demerol 25 mg Route: IVP; Site: right wrist; tw2 17:01 Follow up: Response: No adverse reaction; Pain is unchanged, physician notified; RASS: tw2 Alert and Calm (0) 16:23 Drug: Decadron - Dexamethasone 10 mg Route: IVP; Site: right wrist; tw2 17:01 Follow up: Response: No adverse reaction tw2 17:05 Drug: Demerol 25 mg Route: IVP; Site: right wrist; tw2 17:20 Follow up: Pain 0/10 Adult; Response: No adverse reaction; Pain is decreased; RASS: tw2 Alert and Calm (0) Intake: 17:34 IV: 1000ml; Total: 1000ml. tw2 Outcome: 17:15 Discharge ordered by . rn 17:34 Discharged to home via wheelchair, with family. tw2 17:34 Condition: stable 17:34 Discharge instructions given to patient, family, Instructed on discharge instructions, follow up and referral plans. Demonstrated understanding of instructions, follow-up care. 17:35 Patient left the ED. tw2 Signatures: Dispatcher [employer] EDMS Dimas Jenkins MD MD rn Wise, Tara, RN RN tw2 Zayra Bell RN RN ca1 Christie, Arsalan ag5 Corrections: (The following items were deleted from the chart) 16:09 16:00 BP 156 / 94; Pulse 78bpm; Resp 16bpm; Spontaneous; Pulse Ox 100% RA; Temp 97.2F ca1 Temporal; ca1
--- NOTE | 2019-12-06 17:16 | EDPHYS ---
Physician Documentation [facility] Name: Lianne Greco Age: 79 yrs Sex: Female : 1940 Arrival Date: 12/06/2019 Time: 15:55 Bed 14 Private MD: Landry Trotter F ED Physician Dimas Jenkins HPI: 12/05 16:11 This 79 yrs old Female presents to ER via Ambulatory with complaints of rn Headache > 24hrs Old. 16:11 The patient complains of pain to the right side of head. The patient describes the rn headache as aching. Onset: The symptoms/episode began/occurred 3 day(s) ago. Associated signs and symptoms: Pertinent positives: This patient does not have any pertinent positive signs or symptoms associated with a headache. Pertinent negatives: altered mental status, fever, nausea, neck stiffness, rash, vision changes, vision loss, vomiting, weakness, vertigo. Severity of symptoms: At its worst the pain was moderate, in the emergency department the pain is unchanged. The symptoms are alleviated by nothing. the symptoms are aggravated by nothing. The patient has experienced similar episodes in the past. The patient has not recently seen a physician. Reports migraine for 3 days, alittle worse than her typical migraines, no head injury, no seizure, no fever/neck stiffness. Reports her normal headache medication not helping, came in to get some relief. No focal neuro complaints. . Historical: - Allergies: 16:07 Biaxin; ca1 16:07 Clarithromycin; ca1 16:07 Morphine (Vomiting); ca1 - PMHx: 16:07 Anxiety; Depression; macular degeneration; Migraines; ca1 - PSHx: 16:07 right hip surgery; sinus surgery; tonsilectomy; Bladder suspension; ca1 - Immunization history:: Adult Immunizations up to date. - Social history:: Smoking status: Patient denies any tobacco usage or history of. - Family history:: not pertinent. - Hospitalizations: : No recent hospitalization is reported. ROS: 16:11 Constitutional: Negative for fever, chills, and weight loss, Eyes: Negative for injury, rn pain, redness, and discharge, Neck: Negative for injury, pain, and swelling, Cardiovascular: Negative for chest pain, palpitations, and edema, Respiratory: Negative for shortness of breath, cough, wheezing, and pleuritic chest pain, Abdomen/GI: Negative for abdominal pain, nausea, vomiting, diarrhea, and constipation, MS/Extremity: Negative for injury and deformity, Skin: Negative for injury, rash, and discoloration, Neuro: Negative for weakness, numbness, tingling, and seizure. Exam: 16:11 Constitutional: This is a well developed, well nourished patient who is awake, alert, rn and in no acute distress. Head/Face: Normocephalic, atraumatic. Eyes: Pupils equal round and reactive to light, extra-ocular motions intact. Lids and lashes normal. Conjunctiva and sclera are non-icteric and not injected. Cornea within normal limits. Periorbital areas with no swelling, redness, or edema. Neck: Trachea midline, no masses palpated, and no cervical lymphadenopathy. Supple, full range of motion without nuchal rigidity, or vertebral point tenderness. No Meningismus. Cardiovascular: Regular rate and rhythm. No pulse deficits. Respiratory: Speaking full sentences, unlabored Skin: Warm, dry with normal turgor. Normal color with no rashes, no lesions, and no evidence of cellulitis. MS/ Extremity: Pulses equal, no cyanosis. Neurovascular intact. Full, normal range of motion. Equal circumference. Neuro: Awake and alert, GCS 15, oriented to person, place, time, and situation. Cranial nerves II-XII grossly intact. Motor strength 5/5 in all extremities. Sensory grossly intact. Vital Signs: 16:00 BP 156 / 94; Pulse 78; Resp 16 S; Temp 97.2(TE); Pulse Ox 100% on R/A; Weight 50.8 kg ca1 (R); Height 5 ft. 5 in. (165.10 cm) (R); Pain 8/10; 16:44 BP 153 / 77; Pulse 73; Resp 17; Pulse Ox 100% on R/A; tw2 17:16 BP 136 / 84; Pulse 69; Resp 17; Pulse Ox 99% on R/A; Pain 0/10; tw2 17:20 Pain 0/10; tw2 16:00 Body Mass Index 18.64 (50.80 kg, 165.10 cm) ca1 [place] Coma Score: 17:15 Eye Response: spontaneous(4). Verbal Response: oriented(5). Motor Response: obanoops rn commands(6). Total: 15. MDM: 16:01 Patient medically screened. rn 17:15 Differential diagnosis: hypertensive headache, migraine, tension headache, vasomotor rn headache. Data reviewed: vital signs, nurses notes, radiologic studies, CT scan, and as a result, I will discharge patient. Counseling: I had a detailed discussion with the patient and/or guardian regarding: the historical points, exam findings, and any diagnostic results supporting the discharge/admit diagnosis, radiology results, the need for outpatient follow up, to return to the emergency department if symptoms worsen or persist or if there are any questions or concerns that arise at home. Response to treatment: the patient's symptoms have markedly improved after treatment, and as a result, I will discharge patient. Special discussion: I discussed with the patient/guardian in detail that at this point there is no indication for admission to the hospital. It is understood, however, that if the symptoms persist or worsen the patient needs to return immediately for re-evaluation. 12/05 16:08 Order name: CT Head Brain wo Cont; Complete Time: 16:56 rn 12/05 16:08 Order name: IV Start; Complete Time: 16:25 rn Administered Medications: 16:20 Drug: NS 0.9% 1000 ml Route: IV; Rate: 1000 ml; Site: right wrist; tw2 17:34 Follow up: Response: No adverse reaction; IV Status: Completed infusion; IV Intake: tw2 1000ml 16:20 Drug: Demerol 25 mg Route: IVP; Site: right wrist; tw2 17:01 Follow up: Response: No adverse reaction; Pain is unchanged, physician notified; RASS: tw2 Alert and Calm (0) 16:23 Drug: Decadron - Dexamethasone 10 mg Route: IVP; Site: right wrist; tw2 17:01 Follow up: Response: No adverse reaction tw2 17:05 Drug: Demerol 25 mg Route: IVP; Site: right wrist; tw2 17:20 Follow up: Pain 0/10 Adult; Response: No adverse reaction; Pain is decreased; RASS: tw2 Alert and Calm (0) Disposition: 12/06/19 17:15 Discharged to Home. Impression: Migraine. - Condition is Stable. - Discharge Instructions: Migraine Headache. - Medication Reconciliation Form, Thank You Letter, Antibiotic Education, Prescription Opioid Use form. - Follow up: Private Physician; When: As needed; Reason: Recheck today's complaints, Re-evaluation by your physician. - Problem is an acute exacerbation. - Symptoms have improved. Signatures: Dispatcher [employer] Dimas Lopes MD MD rn Wise, Tara, RN RN tw2 Zayra Bell RN RN ca1 Corrections: (The following items were deleted from the chart) 17:35 17:15 12/06/2019 17:15 Discharged to Home. Impression: Migraine. Condition is Stable. tw2 Forms are Medication Reconciliation Form, Thank You Letter, Antibiotic Education, Prescription Opioid Use. Follow up: Private Physician; When: As needed; Reason: Recheck today's complaints, Re-evaluation by your physician. Problem is an acute exacerbation. Symptoms have improved. rn
[2019-12-06 17:42] VITALS: TEMP 97.2
[2019-12-06 17:49] VITALS: BP 136/84; O2SAT 99
--- OUTSIDE RECORDS SUMMARY | 2019-12-07 22:02 | XMS REPORT | Continuity of Care Document ---
:1940 Author Organization [facility] t Address [address] [place] [address] [place] [id number] Care Team Providers Name Role Phone Unavailable Unavailable Unavailable Problems This patient has no known problems. Allergies, Adverse Reactions, Alerts This patient has no known allergies or adverse reactions. Medications This patient has no known medications. Procedures This patient has no known procedures. Results This patient has no known results.
--- OUTSIDE RECORDS SUMMARY | 2019-12-07 22:03 | XMS REPORT | Clinical Summary ---
:1940 Author Organization [facility] Address [address] [place] [id number] Care Team Providers Name Role Phone Pcp, [...] Depressive disorder 06/09/2013 Overview: ICD10 Diagnosis Term Category Director Utility Social History Tobacco Use Types Packs/Day Years Used Date Never Smoker Smokeless Tobacco: Never Used Alcohol Use Drinks/Week oz/Week Comments No Sex Assigned at Date Recorded Not on file Last Filed Vital Signs Vital Sign Reading Time Taken Comments Blood Pressure 126/77 05/04/2019 4:42 PM [employer] Pulse 73 05/04/2019 4:42 PM [employer]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
== END 2019-12-06 17:35 | disposition home or self-care (01) ==
LOC: ER 15:53
DX: G43.909 Migraine, unspecified, not intractable, without status migrainosus (principal); Z88.1 Allergy status to other antibiotic agents; Z88.5 Allergy status to narcotic agent; Z88.6 Allergy status to analgesic agent
CPT/HCPCS: 96361; 70450; 96375; 96374; 99284; J1100; J2175 ×2; J7030